=== PATIENT | male | born 1955 | race Caucasian/White ===

== ENCOUNTER 2023-01-25 20:42 | Inpatient (IN) ==
[2023-01-25 21:57] LABS: Hematocrit (blood only) 47.4 % (42.0-52.0); Hemoglobin 16.3 g/dl (14.0-18.0); Mean Corpuscular Hemoglobin 33.7 pg (25.0-34.0); Mean Corpuscular Hgb Conc 34.4 g/dL (32.0-36.0); Mean Corpuscular Volume 97.9 fL (80.0-100.0); Mean Platelet Volume 10.8 fL (9.4-12.4); Platelet Count 263 K/uL (130-400); RDW Coefficient of Variation 14.3 % (11.5-14.5); RDW Standard Deviation 51.6 fL (36.4-46.3); Red Blood Count 4.84 M/uL (4.70-6.10); White Blood Count 19.23 K/ul (4.8-10.8)
[2023-01-25 22:14] LABS: Albumin Globulin Ratio 1.2 (0.9-2); Albumin Level 4.1 gm/dl (3.4-5.0); BUN Creatinine Ratio 39.8 (10-20); Bilirubin,Total 1.4 mg/dl (0.2-1.0); Calcium 9.3 mg/dl (8.6-10.3); Creatinine Clr Calc Pharmacy 50.3 ml/min; Est GFR (Non-African American) 41.4 ml/min; Globulin 3.4 gm/dl (2.5-4.0); Potassium 4.3 mmol/L (3.5-5.1); Total Protein 7.5 gm/dl (6.0-8.3)
[2023-01-25] MEDS ORDERED: ONDANSETRON INJ 2 MG/ML 2 ML VIAL IV STA (22:16)
[2023-01-25] MEDS ORDERED: SODIUM CHLORIDE 0.9% 1000ML 1,000 ML IV ONE ×2 (22:16→22:17)
[2023-01-25] MEDS ORDERED: PANTOPRAZOLE BOLUS/DRIP 1 EACH IV STA (22:17)
[2023-01-25] MEDS ORDERED: PANTOprazole 80 MG in DEXTROSE 5% 100 ML IV ONE (22:17)
[2023-01-25 22:24] LABS: Troponin I High Sensitivity 142.4 pg/ml (0-20)
[2023-01-25 22:36] LABS: INR 1.2 (0.9-1.1); Partial Thromboplastin Ratio 0.9; Partial Thromboplastin Time 25.1 Seconds (21.0-31.0); Prothrombin Time 12.9 Seconds (9.0-12.0)
[2023-01-25 22:57] LABS: Base Excess VBG -1.3 mEq/L; HCO3 VBG 23 mmol/L; Oxygen Saturation VBG 66.2 %; PCO2 VBG 35 mmHg (38-50); PO2 VBG 44 mmHg; pH VBG 7.42 (7.36-7.41)
--- NOTE | 2023-01-25 23:04 | CT Scan Report ---
Exam(s): CT ABDOMEN + PELVIS Without Contrast EXAM: CT Abdomen and Pelvis Without Intravenous Contrast CLINICAL HISTORY: Reason for exam: abd pain gi bleed. TECHNIQUE: Axial computed tomography images of the abdomen and pelvis without intravenous contrast. CTDI is 25.75 mGy and DLP is 1436.72 mGy-cm. Automated exposure control was utilized for the study. A dose lowering technique was utilized adhering to the principles of ALARA. COMPARISON: No relevant prior studies available. FINDINGS: Lung bases: Unremarkable. No mass. No consolidation. ABDOMEN: Liver: Unremarkable. Gallbladder and bile ducts: Unremarkable. No calcified stones. No ductal dilation. Pancreas: Fatty replacement of the pancreas. No ductal dilation. Spleen: Unremarkable. No splenomegaly. Adrenals: Unremarkable. No mass. Kidneys and ureters: Mild bilateral perinephric stranding. No obstructing stones. No hydronephrosis. Stomach and bowel: There is mild wall thickening versus under distention of the sigmoid colon. There is scattered colonic diverticula without CT evidence for active diverticulitis. PELVIS: Appendix: No findings to suggest acute appendicitis. Bladder: Unremarkable. No stones. Reproductive: The prostate is enlarged. ABDOMEN and PELVIS: Intraperitoneal space: Unremarkable. No free air. No significant fluid collection. Bones/joints: Please see the dedicated thoracic CT for findings above the diaphragm. Degenerative changes of the thoracolumbar spine. No acute fracture. No dislocation. Soft tissues: Unremarkable. Vasculature: There is an infrarenal abdominal aortic aneurysm measuring up to 3.8 x 3.67 m (image 61 series 3). There is diffuse atherosclerotic calcification of the aorta and its major branch vessels. Lymph nodes: Unremarkable. No enlarged lymph nodes. IMPRESSION: 1. Mild wall thickening versus under distention of the sigmoid colon possibly reflecting colitis. 2. Infrarenal abdominal aortic aneurysm with aneurysm sac measuring up to 3.8 cm. Electronically signed by: Schuyler Zambrano MD 01/25/23 23:03 PM
--- NOTE | 2023-01-25 23:05 | CT Scan Report ---
Exam(s): CT CHEST Without Contrast EXAM: CT Chest Without Intravenous Contrast CLINICAL HISTORY: Reason for exam: charissa hypoxia. TECHNIQUE: Axial computed tomography images of the chest without intravenous contrast. CTDI is 25.75 mGy and DLP is 1436.72 mGy-cm. Automated exposure control was utilized for the study. A dose lowering technique was utilized adhering to the principles of ALARA. COMPARISON: No relevant prior studies available. FINDINGS: Lungs: Advanced biapical emphysema with large blebs as well as findings at the lung bases suggesting underlying interstitial lung disease. Pleural space: Unremarkable. No pneumothorax. No significant effusion. Heart: Dense coronary vascular calcification. No significant pericardial effusion. 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 No acute fracture. No dislocation. Soft tissues: Unremarkable. Vasculature: Calcific atherosclerotic disease of the thoracic aortic arch. Lymph nodes: Unremarkable. No enlarged lymph nodes. Upper abdomen: Please see the dedicated interpretation of the abdomen and pelvis for findings below the diaphragm. IMPRESSION: 1. Advanced emphysema superimposed on changes suggesting underlying interstitial lung disease. 2. Advanced coronary vascular atherosclerotic disease. Electronically signed by: Schuyler Zambrano MD 01/25/23 23:04 PM
[2023-01-25 23:15] LABS: Troponin I High Sensitivity 121.1 pg/ml (0-20)
[2023-01-25] MEDS: PANTOprazole 40 MG in DEXTROSE 5% 100 ML IV SCH (23:37)
--- NOTE | 2023-01-25 23:41 | XRay Report ---
SINGLE VIEW CHEST CLINICAL HISTORY: Sepsis. FINDINGS: An AP, portable, upright chest radiograph is obtained. No prior studies are available for c omparison at the time of dictation.. The heart is mildly enlarged noting atherosclerotic calcificatio n of the thoracic aorta. The pulmonary vasculature is noncongested. Advanced emphysema and chronic in terstitial thickening is similar to previous. Parenchymal scarring is seen throughout both lungs. No airspace consolidation or large pleural effusion is identified. No pneumothorax is seen. The skeletal structures are osteopenic. Bony thorax is grossly intact. IMPRESSION: Cardiomegaly and emphysema with no acute cardiopulmonary abnormality identified. ACT 112: Negative or not required by law. Electronically signed by: Bryce Rosas M.D. 01/25/2023 11:40 PM
[2023-01-26 00:12] LABS: Appearance Urine Clear (Clear); Bilirubin Urine Negative (Negative); Blood Urine Negative (Negative); Color Urine Yellow; Glucose Urine UA Negative (Negative); Ketones Urine Negative (Negative); Leukocyte Esterase Urine Negative (Negative); Nitrite Urine Negative (Negative); Protein Urine Negative (Negative); Specific Gravity Urine 1.018 (1.000-1.030); Urobilinogen Urine Negative (Negative); pH Urine 5.5 (4.5-7.5)
--- NOTE | 2023-01-26 00:30 | Emergency Department Note ---
History of Present Illness General Chief complaint: Abdominal Pain Stated complaint: ABD PAIN,DIARRHEA,BLOOD IN STOOL,QUEASY,DIZZY Time Seen by Provider: 01/25/23 22:10 History of Present Illness Provider complaint: Bloody stool 67-year-old male presents emergency department for bloody stools. Patient reports his symptoms began earlier today. He reports no abdominal pain. Reports no chest pain difficulty breathing. No recent travel. No recent antibiotic usage. No blood thinners. Allergies Allergy/AdvReac Type Severity Reaction Status Date / Time AMOXICILLIN Allergy Unknown Uncoded 08/21/02 15:36 N Allergy Unknown Uncoded 08/21/02 15:36 Past Med/Surg History Medical History AVM (arteriovenous malformation) [id number] syndrome COPD (chronic obstructive pulmonary disease) HTN (hypertension) No pertinent family history Pulmonary fibrosis Surgical History No pertinent past surgical history Social History Smoking Status: Current every day smoker Feels Safe at Home: Yes Physical Exam Vital Signs Vital Signs - 24 hr 01/25/23 20:51 01/25/23 21:28 01/25/23 21:42 Temperature 36.8 C Temperature Source Temporal Artery Scan Pulse Rate 119 H 110 H Pulse Rate [Apical] 103 H Pulse Rate from SpO2 Sensor Pulse Rhythm Pulse Rhythm [Apical] Regular Respiratory Rate 20 20 Respiratory Effort / Characteristics Non-Labored Spontaneous Respiratory Depth Normal Blood Pressure 106/68 Blood Pressure [Right Arm] 98/67 L Blood Pressure Mean 80 Blood Pressure Mean [Right Arm] 77 Blood Pressure Position Sitting Pulse Oximetry 95 84 L Oxygen Delivery Method Room Air Room Air Oxygen Flow Rate Sepsis Recent Fever Within 48 Hours No Sepsis New/Unexplained Change in Mental Status N/A Sepsis Action Taken by Nursing No Action Required 01/25/23 21:42 01/25/23 22:09 01/25/23 21:28 Temperature Temperature Source Pulse Rate 101 H 110 H Pulse Rate [Apical] Pulse Rate from SpO2 Sensor Pulse Rhythm Regular Pulse Rhythm [Apical] Respiratory Rate 18 19 Respiratory Effort / Characteristics Respiratory Depth Blood Pressure Blood Pressure [Right Arm] Blood Pressure Mean Blood Pressure Mean [Right Arm] Blood Pressure Position Pulse Oximetry 90 92 Oxygen Delivery Method Nasal Cannula Nasal Cannula Oxygen Flow Rate 3 3 Sepsis Recent Fever Within 48 Hours Sepsis New/Unexplained Change in Mental Status Sepsis Action Taken by Nursing 01/25/23 21:30 01/25/23 21:45 01/25/23 21:57 Temperature Temperature Source Pulse Rate 106 H 99 H Pulse Rate [Apical] Pulse Rate from SpO2 Sensor Pulse Rhythm Pulse Rhythm [Apical] Respiratory Rate 21 23 Respiratory Effort / Characteristics Respiratory Depth Blood Pressure 98/67 L Blood Pressure [Right Arm] Blood Pressure Mean 76 Blood Pressure Mean [Right Arm] Blood Pressure Position Pulse Oximetry Oxygen Delivery Method Oxygen Flow Rate Sepsis Recent Fever Within 48 Hours Sepsis New/Unexplained Change in Mental Status Sepsis Action Taken by Nursing 01/25/23 21:57 01/25/23 22:01 01/25/23 22:03 Temperature Temperature Source Pulse Rate 102 H 100 H Pulse Rate [Apical] Pulse Rate from SpO2 Sensor 102 H 100 H Pulse Rhythm Pulse Rhythm [Apical] Respiratory Rate 20 14 Respiratory Effort / Characteristics Respiratory Depth Blood Pressure 97/70 L Blood Pressure [Right Arm] Blood Pressure Mean 75 Blood Pressure Mean [Right Arm] Blood Pressure Position Pulse Oximetry 84 L 87 L Oxygen Delivery Method Oxygen Flow Rate Sepsis Recent Fever Within 48 Hours Sepsis New/Unexplained Change in Mental Status Sepsis Action Taken by Nursing 01/25/23 22:03 01/25/23 22:15 01/25/23 22:20 Temperature Temperature Source Pulse Rate 100 H 94 H 98 H Pulse Rate [Apical] Pulse Rate from SpO2 Sensor 100 H 97 H Pulse Rhythm Pulse Rhythm [Apical] Respiratory Rate 25 H 24 34 H Respiratory Effort / Characteristics Respiratory Depth Blood Pressure Blood Pressure [Right Arm] Blood Pressure Mean Blood Pressure Mean [Right Arm] Blood Pressure Position Pulse Oximetry 89 L 92 Oxygen Delivery Method Oxygen Flow Rate Sepsis Recent Fever Within 48 Hours Sepsis New/Unexplained Change in Mental Status Sepsis Action Taken by Nursing 01/25/23 22:20 01/25/23 22:30 01/25/23 22:33 Temperature Temperature Source Pulse Rate 100 H 97 H Pulse Rate [Apical] Pulse Rate from SpO2 Sensor 95 H 96 H Pulse Rhythm Pulse Rhythm [Apical] Respiratory Rate 20 25 H Respiratory Effort / Characteristics Respiratory Depth Blood Pressure 108/72 Blood Pressure [Right Arm] Blood Pressure Mean 81 Blood Pressure Mean [Right Arm] Blood Pressure Position Pulse Oximetry 92 92 Oxygen Delivery Method Oxygen Flow Rate Sepsis Recent Fever Within 48 Hours Sepsis New/Unexplained Change in Mental Status Sepsis Action Taken by Nursing 01/25/23 22:33 01/25/23 22:47 01/25/23 22:47 Temperature Temperature Source Pulse Rate 103 H Pulse Rate [Apical] Pulse Rate from SpO2 Sensor Pulse Rhythm Pulse Rhythm [Apical] Respiratory Rate 21 Respiratory Effort / Characteristics Respiratory Depth Blood Pressure 86/61 L 111/66 Blood Pressure [Right Arm] Blood Pressure Mean 70 73 Blood Pressure Mean [Right Arm] Blood Pressure Position Pulse Oximetry Oxygen Delivery Method Oxygen Flow Rate Sepsis Recent Fever Within 48 Hours Sepsis New/Unexplained Change in Mental Status Sepsis Action Taken by Nursing 01/25/23 23:00 01/25/23 23:00 01/25/23 23:43 Temperature Temperature Source Pulse Rate 92 H Pulse Rate [Apical] 89 Pulse Rate from SpO2 Sensor 92 H Pulse Rhythm Pulse Rhythm [Apical] Respiratory Rate 20 22 Respiratory Effort / Characteristics Non-Labored Spontaneous Respiratory Depth Normal Blood Pressure 98/70 L Blood Pressure [Right Arm] 113/60 Blood Pressure Mean 78 Blood Pressure Mean [Right Arm] 77 Blood Pressure Position Pulse Oximetry 92 96 Oxygen Delivery Method Nasal Cannula Oxygen Flow Rate 3 Sepsis Recent Fever Within 48 Hours Sepsis New/Unexplained Change in Mental Status Sepsis Action Taken by Nursing Physical Exam HENT: Exam performed. - Head: Normocephalic and atraumatic. CV: Normal rate, regular rhythm, normal heart sounds and intact distal pulses. There is no peripheral edema. Palpable radial pulses bue. PULM/CHEST: Rhonchi bilaterally. ABD: The abdomen is soft.There is no tenderness. There is no rebound, no guarding Rectal: Melanotic stool Hemoccult positive. NEURO: He is alert and oriented to person, place, and time. He has normal strength. No cranial nerve deficit or sensory deficit. Coordination and gait normal. GCS eye subscore is 4. GCS verbal subscore is 5. GCS motor subscore is 6. Cerebellar tests wnl. Course Course 0: The patient was evaluated in room C1. A complete history and physical exam was performed Cardiac monitoring: An order was placed for continuous cardiac monitoring. The monitor shows a rate of 110 with sinus rhythm interpreted by me Patient found to be hypoxic on room air. Supplemental oxygen was started via nasal cannula which improved the patient's oxygen saturation. Chest x-ray reviewed by me shows findings consistent with pulmonary fibrosis. IV fluids Protonix bolus and drip ordered for the patient 2330: Vital signs stable on supplemental oxygen. Labs show a leukocytosis of 19.23. Hemoglobin 16.3.. Coagulation studies within normal limits. VBG within normal limits. Creatinine 1.66. Lactic acid 2.1. High-sensitivity troponin [address] of the chest abdomen pelvis was conducted without contrast given the patient's creatinine. CT of the chest shows advanced COPD and interstitial lung disease. CT of the abdomen pelvis shows wall thickening versus underdistention of the sigmoid colon as well as an infra abdominal aortic aneurysm measuring 3.8 cm. Discussed case with [facility] hospitalist Dr. Flower. Dr. Tirado who will evaluate the patient for admission. He states he will evaluate the patient for antibiotics also, C. difficile and stool culture are pending. Administered Medications Pantoprazole Sodium 40 mg/ (Dextrose) 100 mls @ 20 mls/hr IV Q5H COLLIN Stop: 02/24/23 22:44 Last Admin: 01/25/23 23:37 Dose: 8 mg/hr, 20 mls/hr Documented By: ARNOLD Discontinued Medications Sodium Chloride (Nss 1000ml) 1,000 mls @ 999 mls/hr IV .Q1H1M ONE Stop: 01/25/23 23:16 Last Admin: 01/25/23 23:37 Dose: 999 mls/hr Documented By: ARNOLD Sodium Chloride (Nss 1000ml) 1,000 mls @ 999 mls/hr IV .Q1H1M ONE Stop: 01/25/23 23:17 Last Infusion: 01/25/23 23:28 Dose: 0 mls/hr Documented By: Admin: 01/25/23 22:58 Dose: 999 mls/hr Documented By: KAYLYN Pantoprazole Sodium (Protonix Bolus/Drip) 0 mls @ 1 mls/hr IV ONE STA Stop: 01/25/23 22:18 Last Admin: 01/25/23 23:28 Dose: Not Given Documented By: ARNOLD Pantoprazole Sodium 80 mg/ (Dextrose) 120 mls @ 400 mls/hr IV NOW ONE Stop: 01/25/23 22:34 Last Infusion: 01/25/23 23:28 Dose: 0 mls/hr Documented By: Admin: 01/25/23 22:59 Dose: 400 mls/hr Documented By: KAYLYN Ondansetron HCl (Ondansetron Inj 2 Mg/Ml 2 Ml Vial) 4 mg IV NOW STA Stop: 01/25/23 22:17 Last Admin: 01/25/23 23:28 Dose: Not Given Documented By: ARNOLD Critical Care Time Critical Care Time: Yes Total Critical Care Time: 59 I have personally spent greater than 59 minutes of critical care time in the direct management of this patient. This includes bedside care, interpretation of diagnostic studies, and testing, discussion with consultants, patient, and family members, and other required patient management activities. This 59 minutes is in excess of all separately billable procedures. Medical Decision Making Laboratory Data Attestation: I reviewed the patient's lab results. 01/25/23 21:13 01/25/23 21:13 Lab Results 01/25/23 01/25/23 01/25/23 Range/Units 21:12 21:13 21:13 WBC 19.23 H (4.8-10.8) K/ul RBC 4.84 (4.70-6.10) M/uL Hgb 16.3 (14.0-18.0) g/dl Hct 47.4 (42.0-52.0) % MCV 97.9 (80.0-100.0) fL MCH 33.7 (25.0-34.0) pg MCHC 34.4 (32.0-36.0) g/dL RDW Std Deviation 51.6 H (36.4-46.3) fL RDW Coeff of Nyasia 14.3 (11.5-14.5) % Plt Count 263 (130-400) K/uL MPV 10.8 (9.4-12.4) fL PT 12.9 H (9.0-12.0) Seconds INR 1.2 H (0.9-1.1) APTT 25.1 (21.0-31.0) Seconds PTT Ratio 0.9 VBG pH (7.36-7.41) VBG pCO2 (38-50) mmHg VBG pO2 mmHg VBG HCO3 mmol/L VBG O2 Saturation % VBG Base Excess mEq/L Sodium (136-145) mmol/L Potassium (3.5-5.1) mmol/L Chloride (98-107) mmol/L Carbon Dioxide (21-32) mmol/L Anion Gap (3-11) BUN (6-23) mg/dl Creatinine (0.6-1.4) mg/dl Est Cr Clr Drug Dosing ml/min Est GFR ( Amer) ml/min Est GFR (Non-Af Amer) ml/min BUN/Creatinine Ratio (10-20) Glucose (70-99(Fasting)) mg/dl Lactate (0.4-2.0) mmol/L Calcium (8.6-10.3) mg/dl Magnesium (1.7-2.4) mg/dl Total Bilirubin (0.2-1.0) mg/dl AST (13-39) U/L ALT (7-52) U/L Alkaline Phosphatase (34-104) U/L Troponin I High Sens (0-20) pg/ml Total Protein (6.0-8.3) gm/dl Albumin (3.4-5.0) gm/dl Globulin (2.5-4.0) gm/dl Albumin/Globulin Ratio (0.9-2) Procalcitonin (0-0.5) ng/ml Urine Color Urine Appearance (Clear) Urine pH (4.5-7.5) Ur Specific Clayton (1.000-1.030) Urine Protein (Negative) Urine Glucose (UA) (Negative) Urine Ketones (Negative) Urine Blood (Negative) Urine Nitrite (Negative) Urine Bilirubin (Negative) Urine Urobilinogen (Negative) Ur Leukocyte Esterase (Negative) POC Stool Occult Blood (Negative) SARS-CoV-2, RNA, NAAT (NEGATIVE) Blood Type A Negative Antibody Screen NEGATIVE 01/25/23 01/25/23 01/25/23 Range/Units 21:13 21:15 22:09 WBC (4.8-10.8) K/ul RBC (4.70-6.10) M/uL Hgb (14.0-18.0) g/dl Hct (42.0-52.0) % MCV (80.0-100.0) fL MCH (25.0-34.0) pg MCHC (32.0-36.0) g/dL RDW Std Deviation (36.4-46.3) fL RDW Coeff of Nyasia (11.5-14.5) % Plt Count (130-400) K/uL MPV (9.4-12.4) fL PT (9.0-12.0) Seconds INR (0.9-1.1) APTT (21.0-31.0) Seconds PTT Ratio VBG pH (7.36-7.41) VBG pCO2 (38-50) mmHg VBG pO2 mmHg VBG HCO3 mmol/L VBG O2 Saturation % VBG Base Excess mEq/L Sodium 134 L (136-145) mmol/L Potassium 4.3 (3.5-5.1) mmol/L Chloride 101 (98-107) mmol/L Carbon Dioxide 21 (21-32) mmol/L Anion Gap 12 H (3-11) BUN 66 H (6-23) mg/dl Creatinine 1.66 H (0.6-1.4) mg/dl Est Cr Clr Drug Dosing 50.3 ml/min Est GFR ( Amer) 48.0 ml/min Est GFR (Non-Af Amer) 41.4 ml/min BUN/Creatinine Ratio 39.8 H (10-20) Glucose 128 H (70-99(Fasting)) mg/dl Lactate (0.4-2.0) mmol/L Calcium 9.3 (8.6-10.3) mg/dl Magnesium (1.7-2.4) mg/dl Total Bilirubin 1.4 H (0.2-1.0) mg/dl AST 19 (13-39) U/L ALT 18 (7-52) U/L Alkaline Phosphatase 62 (34-104) U/L Troponin I High Sens 142.4 H* (0-20) pg/ml Total Protein 7.5 (6.0-8.3) gm/dl Albumin 4.1 (3.4-5.0) gm/dl Globulin 3.4 (2.5-4.0) gm/dl Albumin/Globulin Ratio 1.2 (0.9-2) Procalcitonin 0.24 (0-0.5) ng/ml Urine Color Urine Appearance (Clear) Urine pH (4.5-7.5) Ur Specific Clayton (1.000-1.030) Urine Protein (Negative) Urine Glucose (UA) (Negative) Urine Ketones (Negative) Urine Blood (Negative) Urine Nitrite (Negative) Urine Bilirubin (Negative) Urine Urobilinogen (Negative) Ur Leukocyte Esterase (Negative) POC Stool Occult Blood Positive A (Negative) SARS-CoV-2, RNA, NAAT (NEGATIVE) Blood Type Antibody Screen 01/25/23 01/25/23 01/25/23 Range/Units 22:27 22:27 22:32 WBC (4.8-10.8) K/ul RBC (4.70-6.10) M/uL Hgb (14.0-18.0) g/dl Hct (42.0-52.0) % MCV (80.0-100.0) fL MCH (25.0-34.0) pg MCHC (32.0-36.0) g/dL RDW Std Deviation (36.4-46.3) fL RDW Coeff of Nyasia (11.5-14.5) % Plt Count (130-400) K/uL MPV (9.4-12.4) fL PT (9.0-12.0) Seconds INR (0.9-1.1) APTT (21.0-31.0) Seconds PTT Ratio VBG pH 7.42 H (7.36-7.41) VBG pCO2 35 L (38-50) mmHg VBG pO2 44 mmHg VBG HCO3 23 mmol/L VBG O2 Saturation 66.2 % VBG Base Excess -1.3 mEq/L Sodium (136-145) mmol/L Potassium (3.5-5.1) mmol/L Chloride (98-107) mmol/L Carbon Dioxide (21-32) mmol/L Anion Gap (3-11) BUN (6-23) mg/dl Creatinine (0.6-1.4) mg/dl Est Cr Clr Drug Dosing ml/min Est GFR ( Amer) ml/min Est GFR (Non-Af Amer) ml/min BUN/Creatinine Ratio (10-20) Glucose (70-99(Fasting)) mg/dl Lactate 2.1 H* (0.4-2.0) mmol/L Calcium (8.6-10.3) mg/dl Magnesium 2.0 (1.7-2.4) mg/dl Total Bilirubin (0.2-1.0) mg/dl AST (13-39) U/L ALT (7-52) U/L Alkaline Phosphatase (34-104) U/L Troponin I High Sens 121.1 H* (0-20) pg/ml Total Protein (6.0-8.3) gm/dl Albumin (3.4-5.0) gm/dl Globulin (2.5-4.0) gm/dl Albumin/Globulin Ratio (0.9-2) Procalcitonin (0-0.5) ng/ml Urine Color Urine Appearance (Clear) Urine pH (4.5-7.5) Ur Specific Clayton (1.000-1.030) Urine Protein (Negative) Urine Glucose (UA) (Negative) Urine Ketones (Negative) Urine Blood (Negative) Urine Nitrite (Negative) Urine Bilirubin (Negative) Urine Urobilinogen (Negative) Ur Leukocyte Esterase (Negative) POC Stool Occult Blood (Negative) SARS-CoV-2, RNA, NAAT (NEGATIVE) Blood Type Antibody Screen 01/25/23 01/25/23 Range/Units Unknown Unknown WBC (4.8-10.8) K/ul RBC (4.70-6.10) M/uL Hgb (14.0-18.0) g/dl Hct (42.0-52.0) % MCV (80.0-100.0) fL MCH (25.0-34.0) pg MCHC (32.0-36.0) g/dL RDW Std Deviation (36.4-46.3) fL RDW Coeff of Nyasia (11.5-14.5) % Plt Count (130-400) K/uL MPV (9.4-12.4) fL PT (9.0-12.0) Seconds INR (0.9-1.1) APTT (21.0-31.0) Seconds PTT Ratio VBG pH (7.36-7.41) VBG pCO2 (38-50) mmHg VBG pO2 mmHg VBG HCO3 mmol/L VBG O2 Saturation % VBG Base Excess mEq/L Sodium (136-145) mmol/L Potassium (3.5-5.1) mmol/L Chloride (98-107) mmol/L Carbon Dioxide (21-32) mmol/L Anion Gap (3-11) BUN (6-23) mg/dl Creatinine (0.6-1.4) mg/dl Est Cr Clr Drug Dosing ml/min Est GFR ( Amer) ml/min Est GFR (Non-Af Amer) ml/min BUN/Creatinine Ratio (10-20) Glucose (70-99(Fasting)) mg/dl Lactate (0.4-2.0) mmol/L Calcium (8.6-10.3) mg/dl Magnesium (1.7-2.4) mg/dl Total Bilirubin (0.2-1.0) mg/dl AST (13-39) U/L ALT (7-52) U/L Alkaline Phosphatase (34-104) U/L Troponin I High Sens (0-20) pg/ml Total Protein (6.0-8.3) gm/dl Albumin (3.4-5.0) gm/dl Globulin (2.5-4.0) gm/dl Albumin/Globulin Ratio (0.9-2) Procalcitonin (0-0.5) ng/ml Urine Color Yellow Urine Appearance Clear (Clear) Urine pH 5.5 (4.5-7.5) Ur Specific Clayton 1.018 (1.000-1.030) Urine Protein Negative (Negative) Urine Glucose (UA) Negative (Negative) Urine Ketones Negative (Negative) Urine Blood Negative (Negative) Urine Nitrite Negative (Negative) Urine Bilirubin Negative (Negative) Urine Urobilinogen Negative (Negative) Ur Leukocyte Esterase Negative (Negative) POC Stool Occult Blood (Negative) SARS-CoV-2, RNA, NAAT NEGATIVE (NEGATIVE) Blood Type Antibody Screen Imaging Data Attestation: I personally reviewed and interpreted this imaging study as follows: My Impression: Chest x-ray: Findings are consistent with pulmonary fibrosis Radiologist's Impression: Chest X-Ray 01/25/23 22:09 SINGLE VIEW CHEST CLINICAL HISTORY: Sepsis. FINDINGS: An AP, portable, upright chest radiograph is obtained. No prior studies are available for comparison at the time of dictation.. The heart is mildly enlarged noting atherosclerotic calcification of the thoracic aorta. The pulmonary vasculature is noncongested. Advanced emphysema and chronic interstitial thickening is similar to previous. Parenchymal scarring is seen throughout both lungs. No airspace consolidation or large pleural effusion is identified. No pneumothorax is seen. The skeletal structures are osteopenic. Bony thorax is grossly intact. IMPRESSION: Cardiomegaly and emphysema with no acute cardiopulmonary abnormality identified. ACT 112: Negative or not required by law. Electronically signed by: Bryce Rosas M.D. 01/25/2023 11:40 PM Abdomen/Pelvis CT 01/25/23 22:17 Exam(s): CT ABDOMEN + PELVIS Without Contrast EXAM: CT Abdomen and Pelvis Without Intravenous Contrast CLINICAL HISTORY: Reason for exam: abd pain gi bleed. TECHNIQUE: Axial computed tomography images of the abdomen and pelvis without intravenous contrast. CTDI is 25.75 mGy and DLP is 1436.72 mGy-cm. Automated exposure control was utilized for the study. A dose lowering technique was utilized adhering to the principles of ALARA. COMPARISON: No relevant prior studies available. FINDINGS: Lung bases: Unremarkable. No mass. No consolidation. ABDOMEN: Liver: Unremarkable. Gallbladder and bile ducts: Unremarkable. No calcified stones. No ductal dilation. Pancreas: Fatty replacement of the pancreas. No ductal dilation. Spleen: Unremarkable. No splenomegaly. Adrenals: Unremarkable. No mass. Kidneys and ureters: Mild bilateral perinephric stranding. No obstructing stones. No hydronephrosis. Stomach and bowel: There is mild wall thickening versus under distention of the sigmoid colon. There is scattered colonic diverticula without CT evidence for active diverticulitis. PELVIS: Appendix: No findings to suggest acute appendicitis. Bladder: Unremarkable. No stones. Reproductive: The prostate is enlarged. ABDOMEN and PELVIS: Intraperitoneal space: Unremarkable. No free air. No significant fluid collection. Bones/joints: Please see the dedicated thoracic CT for findings above the diaphragm. Degenerative changes of the thoracolumbar spine. No acute fracture. No dislocation. Soft tissues: Unremarkable. Vasculature: There is an infrarenal abdominal aortic aneurysm measuring up to 3.8 x 3.67 m (image 61 series 3). There is diffuse atherosclerotic calcification of the aorta and its major branch vessels. Lymph nodes: Unremarkable. No enlarged lymph nodes. IMPRESSION: 1. Mild wall thickening versus under distention of the sigmoid colon possibly reflecting colitis. 2. Infrarenal abdominal aortic aneurysm with aneurysm sac measuring up to 3.8 cm. Electronically signed by: Schuyler Zambrano MD 01/25/23 23:[address] 01/25/23 22:20 Exam(s): CT CHEST Without Contrast EXAM: CT Chest Without Intravenous Contrast CLINICAL HISTORY: Reason for exam: charissa hypoxia. TECHNIQUE: Axial computed tomography images of the chest without intravenous contrast. CTDI is 25.75 mGy and DLP is 1436.72 mGy-cm. Automated exposure control was utilized for the study. A dose lowering technique was utilized adhering to the principles of ALARA. COMPARISON: No relevant prior studies available. FINDINGS: Lungs: Advanced biapical emphysema with large blebs as well as findings at the lung bases suggesting underlying interstitial lung disease. Pleural space: Unremarkable. No pneumothorax. No significant effusion. Heart: Dense coronary vascular calcification. No significant pericardial effusion. 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 No acute fracture. No dislocation. Soft tissues: Unremarkable. Vasculature: Calcific atherosclerotic disease of the thoracic aortic arch. Lymph nodes: Unremarkable. No enlarged lymph nodes. Upper abdomen: Please see the dedicated interpretation of the abdomen and pelvis for findings below the diaphragm. IMPRESSION: 1. Advanced emphysema superimposed on changes suggesting underlying interstitial lung disease. 2. Advanced coronary vascular atherosclerotic disease. Electronically signed by: Schuyler Zambrano MD 01/25/23 23:04 PM ECG Data Attestation: I personally reviewed and interpreted this ECG as follows: Rate (beats per minute): 113 Rhythm: + sinus tachycardia ECG Intervals/blocks: + Normal QRS, + Normal LA and + Normal QT-c ECG ST segments: + Normal ST segments MDM Narrative 2210: The patient was evaluated in room C1. A complete history and physical exam was performed Cardiac monitoring: An order was placed for continuous cardiac monitoring. The monitor shows a rate of 110 with sinus rhythm interpreted by me Patient found to be hypoxic on room air. Supplemental oxygen was started via nasal cannula which improved the patient's oxygen saturation. Chest x-ray reviewed by me shows findings consistent with pulmonary fibrosis. IV fluids Protonix bolus and drip ordered for the patient 2330: Vital signs stable on supplemental oxygen. Labs show a leukocytosis of 19.23. Hemoglobin 16.3.. Coagulation studies within normal limits. VBG within normal limits. Creatinine 1.66. Lactic acid 2.1. High-sensitivity troponin 144. CT of the chest abdomen pelvis was conducted without contrast given the patient's creatinine. CT of the chest shows advanced COPD and interstitial lung disease. CT of the abdomen pelvis shows wall thickening versus underdistention of the sigmoid colon as well as an infra abdominal aortic aneurysm measuring 3.8 cm. Discussed case with [facility] hospitalist Dr. Flower. Dr. Tirado who will evaluate the patient for admission. He states he will evaluate the patient for antibiotics also, C. difficile and stool culture are pending. Impression & Plan Hypoxia, Elevated troponin, Acute GI bleeding Discharge Plan Visit Data Chief Complaint: Abdominal Pain Stated Complaint: ABD PAIN,DIARRHEA,BLOOD IN STOOL,QUEASY,DIZZY ED Provider: Owen Estrella Discharge Problem: Hypoxia, Elevated troponin, Acute GI bleeding Patient Disposition: Admitted As Inpatient Forms Stand Alone Forms: [facility] Referrals Referrals: Ck Palma MD [Primary Care Provider] -
[2023-01-26] MEDS: PANTOprazole 40 MG in DEXTROSE 5% 100 ML IV SCH ×4 (04:34→20:34)
[2023-01-26] MEDS ORDERED: ACETAMINOPHEN 325 MG TAB PO PRN (05:09)
[2023-01-26] MEDS ORDERED: NITROGLYCERIN SL 0.4 MG/TAB TAB SL PRN (05:09)
[2023-01-26] MEDS ORDERED: ONDANSETRON INJ 2 MG/ML 2 ML VIAL IV PRN (05:09)
[2023-01-26] MEDS ORDERED: ALBUT/IPRATROP 3MG/0.5MG NEB 3 ML VIAL NEB PRN (05:09)
[2023-01-26] MEDS ORDERED: PIPERACILLIN/TAZOBACTAM 4.5 GM in DEXTROSE 5% 100 ML IV SCH (05:09)
--- NOTE | 2023-01-26 05:18 | History & Physical Report ---
Date of Service January 26, 2023 Assessment & Plan (1) Acute GI bleeding: Plan: 67-year-old male past medical history significant for hyperlipidemia, prediabetes, respiratory bronchiolitis associated interstitial lung disease, pulmonary emphysema, hypertension, AAA, lumbago, history of tobacco abuse says quit in 2008 presents with 1 episodes of blood per rectum. GI bleed Blood per rectum Hemoglobin stable Blood consent obtained CT scan showing colitis Stool cultures and stool for C. difficile pending N.p.o. IV fluids H&H every 6 hours Close monitoring telemetry floor GI consulted. Elevated troponin No chest pain We will follow serial enzymes and echocardiogram Hypoxia Requiring oxygen No obvious wheezing History of smoking History of respiratory bronchiolitis associated interstitial lung disease and pulmonary emphysema Has cough with phlegm CT chest without contrast no acute findings Empiric Zosyn and doxycycline Nebs [id number] and as needed Home inhalers Close monitor Leukocytosis Antibiotics as above P.o. vancomycin until stool for C. difficile studies comes back Hypertension Hold his home lisinopril hydrochlorothiazide IV hydralazine as needed Will monitor Prediabetes Follow HbA1c levels AAA CT abdomen showing infrarenal abdominal aortic aneurysm 3.8 cm Needs follow-up DVT prophylaxis SCDs Disposition Close monitoring in telemetry Full code (2) Elevated troponin: (3) Hypoxia: History of Present Illness Chief Complaint: Blood per rectum Primary Care Provider: Ck Palma MD 67-year-old male past medical history significant for hyperlipidemia, prediabetes, respiratory bronchiolitis associated interstitial lung disease, pulmonary emphysema, hypertension, AAA, lumbago, history of tobacco abuse says quit in 2008 presents with 1 episodes of blood per rectum. Denies any abdominal pain. No nausea or vomiting. Has cough since about 1 to 2 days bringing yellowish phlegm. Denies any chest pain. Says he gets mild short of breath. Denies any headache. He was feeling lightheaded. No blurred visions. No earache. Has some runny nose. Appetite is okay. Normal bladder movements. In the ER he was slightly hypoxic and requiring oxygen. When he came in blood pressure was soft but improved with fluids. Past medical history as mentioned above Past surgical history colonoscopy, dental procedure, Allergies Allergy/AdvReac Type Severity Reaction Status Date / Time amoxicillin Allergy Unknown Unknown Verified 01/26/23 05:16 Home Medications Medication Instructions Recorded Confirmed Type aspirin 81 mg capsule,delayed 81 mg PO DAILY 01/26/23 01/26/23 History release lisinopril 10 1 tab PO DAILY 01/26/23 01/26/23 History mg-hydrochlorothiazide 12.5 mg tablet umeclidinium 62.5 mcg-vilanterol 1 inh inhalation DAILY 01/26/23 01/26/23 History 25 mcg/actuation powdr for inhalation (Anoro Ellipta) Past Med/Surg History Medical History AVM (arteriovenous malformation) Anzv-Wpvd-Spju syndrome COPD (chronic obstructive pulmonary disease) HTN (hypertension) No pertinent family history Pulmonary fibrosis Surgical History No pertinent past surgical history Family History (Updated 01/26/23 @ 05:20 by Ronald Flower MD) Sister Breast cancer Mother Diabetes Social History (Updated 01/26/23 @ 05:21 by Ronald Flower MD) Smoking Status: Former smoker Hx Alcohol Use: No Hx Substance Use: No Feels Safe at Home: Yes Review of Systems Review of Systems: All systems reviewed & are unremarkable except as noted in Subjective Physical Exam Physical Exam: General- not in acute distress Head- atraumatic Eyes- PERRL ENT- oropharynx clear Neck- supple, no JVD, Lungs- clear to auscultation and percussion Heart- regular rhythm; no murmur, no gallop, no rub appreciated Abdomen- normal bowel sounds, soft, nontender, no masses or hepatosplenomegaly Extremities- no pretibial edema, no erythema Neuro- alert, oriented x 3; PERRL no facial palsy; no dysarthria;Non focal. Skin- warm & dry Results & Data Results & Data Vital Signs (Past 12 Hours) Vital Signs Temp Pulse Pulse Resp BP BP Pulse Ox 01/26/23 04:30 81 19 102/71 92 01/26/23 04:00 90 24 123/94 87 L 01/26/23 03:33 89 21 100/78 93 01/26/23 03:00 86 24 114/88 93 01/26/23 01:27 89 01/26/23 01:07 96 H 22 118/87 92 01/25/23 23:43 89 22 113/60 96 01/25/23 23:00 92 H 20 92 01/25/23 23:00 98/70 L 01/25/23 22:47 103 H 21 01/25/23 22:47 111/66 01/25/23 22:33 86/61 L 01/25/23 22:33 97 H 25 H 92 01/25/23 22:30 100 H 20 92 01/25/23 22:20 108/72 01/25/23 22:20 98 H 34 H 92 01/25/23 22:15 94 H 24 01/25/23 22:03 100 H 25 H 89 L 01/25/23 22:03 97/70 L 01/25/23 22:01 100 H 14 87 L 01/25/23 21:57 102 H 20 84 L 01/25/23 21:57 98/67 L 01/25/23 21:45 99 H 23 01/25/23 21:30 106 H 21 01/25/23 21:28 110 H 19 01/25/23 22:09 92 01/25/23 21:42 101 H 18 90 01/25/23 21:42 103 H 20 98/67 L 84 L 01/25/23 21:28 110 H 01/25/23 20:51 36.8 C 119 H 20 106/68 95 O2 Del Method O2 Flow Rate 01/26/23 04:30 01/26/23 04:00 01/26/23 03:33 01/26/23 03:00 01/26/23 01:27 01/26/23 01:07 Nasal Cannula 3 01/25/23 23:43 Nasal Cannula 3 01/25/23 23:00 01/25/23 23:00 01/25/23 22:47 01/25/23 22:47 01/25/23 22:33 01/25/23 22:33 01/25/23 22:30 01/25/23 22:20 01/25/23 22:20 01/25/23 22:15 01/25/23 22:03 01/25/23 22:03 01/25/23 22:01 01/25/23 21:57 01/25/23 21:57 01/25/23 21:45 01/25/23 21:30 01/25/23 21:28 01/25/23 22:09 Nasal Cannula 3 01/25/23 21:42 Nasal Cannula 3 01/25/23 21:42 Room Air 01/25/23 21:28 01/25/23 20:51 Room Air Diagnostic Findings Laboratory Results WBC 19.23 K/ul (4.8-10.8) H 01/25/23 21:13 RBC 4.84 M/uL (4.70-6.10) 01/25/23 21:13 Hgb 16.3 g/dl (14.0-18.0) 01/25/23 21:13 Hct 47.4 % (42.0-52.0) 01/25/23 21:13 MCV 97.9 fL (80.0-100.0) 01/25/23 21:13 MCH 33.7 pg (25.0-34.0) 01/25/23 21:13 MCHC 34.4 g/dL (32.0-36.0) 01/25/23 21:13 RDW Std Deviation 51.6 fL (36.4-46.3) H 01/25/23 21:13 RDW Coeff of Nyasia 14.3 % (11.5-14.5) 01/25/23 21:13 Plt Count 263 K/uL (130-400) 01/25/23 21:13 MPV 10.8 fL (9.4-12.4) 01/25/23 21:13 PT 12.9 Seconds (9.0-12.0) H 01/25/23 21:13 INR 1.2 (0.9-1.1) H 01/25/23 21:13 APTT 25.1 Seconds (21.0-31.0) 01/25/23 21:13 PTT Ratio 0.9 01/25/23 21:13 VBG pH 7.42 (7.36-7.41) H 01/25/23 22:27 VBG pCO2 35 mmHg (38-50) L 01/25/23 22: VBG pO2 44 mmHg 01/25/23 22:27 VBG HCO3 23 mmol/L 01/25/23 22: VBG O2 Saturation 66.2 % 01/25/23 22: VBG Base Excess -1.3 mEq/L 01/25/23 22:27 Sodium 134 mmol/L (136-145) L 01/25/23 21:13 Potassium 4.3 mmol/L (3.5-5.1) 01/25/23 21:13 Chloride 101 mmol/L (98-107) 01/25/23 21:13 Carbon Dioxide 21 mmol/L (21-32) 01/25/23 21:13 Anion Gap 12 (3-11) H 01/25/23 21:13 BUN 66 mg/dl (6-23) H 01/25/23 21:13 Creatinine 1.66 mg/dl (0.6-1.4) H 01/25/23 21:13 Est Cr Clr Drug Dosing 50.3 ml/min 01/25/23 21:13 Est GFR ( Amer) 48.0 ml/min 01/25/23 21:13 Est GFR (Non-Af Amer) 41.4 ml/min 01/25/23 21:13 BUN/Creatinine Ratio 39.8 (10-20) H 01/25/23 21:13 Glucose 128 mg/dl (70-99(Fasting)) H 01/25/23 21:13 Lactate 1.5 mmol/L (0.4-2.0) 01/26/23 01:12 Calcium 9.3 mg/dl (8.6-10.3) 01/25/23 21:13 Magnesium 2.0 mg/dl (1.7-2.4) 01/25/23 22:32 Total Bilirubin 1.4 mg/dl (0.2-1.0) H 01/25/23 21:13 AST 19 U/L (13-39) 01/25/23 21:13 ALT 18 U/L (7-52) 01/25/23 21:13 Alkaline Phosphatase 62 U/L (34-104) 01/25/23 21:13 Troponin I High Sens 121.1 pg/ml (0-20) H* 01/25/23 22:32 Total Protein 7.5 gm/dl (6.0-8.3) 01/25/23 21:13 Albumin 4.1 gm/dl (3.4-5.0) 01/25/23 21:13 Globulin 3.4 gm/dl (2.5-4.0) 01/25/23 21:13 Albumin/Globulin Ratio 1.2 (0.9-2) 01/25/23 21:13 Procalcitonin 0.24 ng/ml (0-0.5) 01/25/23 21:15 Urine Color Yellow 01/25/23 Unknown Urine Appearance Clear (Clear) 01/25/23 Unknown Urine pH 5.5 (4.5-7.5) 01/25/23 Unknown Ur Specific Marshall 1.018 (1.000-1.030) 01/25/23 Unknown Urine Protein Negative (Negative) 01/25/23 Unknown Urine Glucose (UA) Negative (Negative) 01/25/23 Unknown Urine Ketones Negative (Negative) 01/25/23 Unknown Urine Blood Negative (Negative) 01/25/23 Unknown Urine Nitrite Negative (Negative) 01/25/23 Unknown Urine Bilirubin Negative (Negative) 01/25/23 Unknown Urine Urobilinogen Negative (Negative) 01/25/23 Unknown Ur Leukocyte Esterase Negative (Negative) 01/25/23 Unknown POC Stool Occult Blood Positive (Negative) A 01/25/23 22:09 SARS-CoV-2, RNA, NAAT NEGATIVE (NEGATIVE) 01/25/23 Unknown Blood Type A Negative 01/25/23 21:12 Antibody Screen NEGATIVE 01/25/23 21:12 Impressions Chest X-Ray 01/25/23 22:09 SINGLE VIEW CHEST CLINICAL HISTORY: Sepsis. FINDINGS: An AP, portable, upright chest radiograph is obtained. No prior studies are available for comparison at the time of dictation.. The heart is mildly enlarged noting atherosclerotic calcification of the thoracic aorta. The pulmonary vasculature is noncongested. Advanced emphysema and chronic interstitial thickening is similar to previous. Parenchymal scarring is seen throughout both lungs. No airspace consolidation or large pleural effusion is identified. No pneumothorax is seen. The skeletal structures are osteopenic. Bony thorax is grossly intact. IMPRESSION: Cardiomegaly and emphysema with no acute cardiopulmonary abnormality identified. ACT 112: Negative or not required by law. Electronically signed by: Bryce Rosas M.D. 01/25/2023 11:40 PM Abdomen/Pelvis CT 01/25/23 22:17 Exam(s): CT ABDOMEN + PELVIS Without Contrast EXAM: CT Abdomen and Pelvis Without Intravenous Contrast CLINICAL HISTORY: Reason for exam: abd pain gi bleed. TECHNIQUE: Axial computed tomography images of the abdomen and pelvis without intravenous contrast. CTDI is 25.75 mGy and DLP is 1436.72 mGy-cm. Automated exposure control was utilized for the study. A dose lowering technique was utilized adhering to the principles of ALARA. COMPARISON: No relevant prior studies available. FINDINGS: Lung bases: Unremarkable. No mass. No consolidation. ABDOMEN: Liver: Unremarkable. Gallbladder and bile ducts: Unremarkable. No calcified stones. No ductal dilation. Pancreas: Fatty replacement of the pancreas. No ductal dilation. Spleen: Unremarkable. No splenomegaly. Adrenals: Unremarkable. No mass. Kidneys and ureters: Mild bilateral perinephric stranding. No obstructing stones. No hydronephrosis. Stomach and bowel: There is mild wall thickening versus under distention of the sigmoid colon. There is scattered colonic diverticula without CT evidence for active diverticulitis. PELVIS: Appendix: No findings to suggest acute appendicitis. Bladder: Unremarkable. No stones. Reproductive: The prostate is enlarged. ABDOMEN and PELVIS: Intraperitoneal space: Unremarkable. No free air. No significant fluid collection. Bones/joints: Please see the dedicated thoracic CT for findings above the diaphragm. Degenerative changes of the thoracolumbar spine. No acute fracture. No dislocation. Soft tissues: Unremarkable. Vasculature: There is an infrarenal abdominal aortic aneurysm measuring up to 3.8 x 3.67 m (image 61 series 3). There is diffuse atherosclerotic calcification of the aorta and its major branch vessels. Lymph nodes: Unremarkable. No enlarged lymph nodes. IMPRESSION: 1. Mild wall thickening versus under distention of the sigmoid colon possibly reflecting colitis. 2. Infrarenal abdominal aortic aneurysm with aneurysm sac measuring up to 3.8 cm. Electronically signed by: Schuyler Zambrano MD 01/25/23 23:[address] 01/25/23 22:20 Exam(s): CT CHEST Without Contrast EXAM: CT Chest Without Intravenous Contrast CLINICAL HISTORY: Reason for exam: charissa hypoxia. TECHNIQUE: Axial computed tomography images of the chest without intravenous contrast. CTDI is 25.75 mGy and DLP is 1436.72 mGy-cm. Automated exposure control was utilized for the study. A dose lowering technique was utilized adhering to the principles of ALARA. COMPARISON: No relevant prior studies available. FINDINGS: Lungs: Advanced biapical emphysema with large blebs as well as findings at the lung bases suggesting underlying interstitial lung disease. Pleural space: Unremarkable. No pneumothorax. No significant effusion. Heart: Dense coronary vascular calcification. No significant pericardial effusion. 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 No acute fracture. No dislocation. Soft tissues: Unremarkable. Vasculature: Calcific atherosclerotic disease of the thoracic aortic arch. Lymph nodes: Unremarkable. No enlarged lymph nodes. Upper abdomen: Please see the dedicated interpretation of the abdomen and pelvis for findings below the diaphragm. IMPRESSION: 1. Advanced emphysema superimposed on changes suggesting underlying interstitial lung disease. 2. Advanced coronary vascular atherosclerotic disease. Electronically signed by: Schuyler Zambrano MD 01/25/23 23:04 PM ECG Additional Comments: ECG sinus tachycardia rate of [address] changes seen Code Status & VTE Plan VTE Prophylaxis Plan VTE Prophylaxis will be ordered: Yes
[2023-01-26] MEDS: SODIUM CHLORIDE 0.9% 1000ML 1,000 ML IV SCH ×2 (05:35→15:36)
[2023-01-26] MEDS ORDERED: ERTAPENEM SODIUM 10 ML IV ONE (06:00)
[2023-01-26] MEDS ORDERED: ERTAPENEM SODIUM 1,000 MG in SYRINGE 0 ML IV SCH (06:00)
[2023-01-26] MEDS: RASPBERRY SYRUP 5 ML UDP PO SCH ×2 (06:22→12:04)
[2023-01-26] MEDS: DOXYCYCLINE HYCLATE 100 MG in DEXTROSE 5% 100 ML IV SCH ×2 (06:22→18:25)
[2023-01-26] MEDS: VANCOMYCIN HCL 125 MG/2.5ML SOLN PO SCH ×2 (06:23→12:04)
[2023-01-26 06:31] LABS: Basophils # (auto) 0.13 K/uL (0-0.2); Basophils % (auto) 0.8 %; Eosinophils # (auto) 0.14 K/uL (0-0.50); Eosinophils % (auto) 0.9 %; Hematocrit (blood only) 44.2 % (42.0-52.0); Hemoglobin 15.2 g/dl (14.0-18.0); Immature Granulocytes # (auto) 0.26 K/uL (0.01-0.20); Immature Granulocytes % (auto) 1.7 %; Lymphocytes # (auto) 4.12 K/uL (1.2-3.4); Lymphocytes % (auto) 26.5 %; Mean Corpuscular Hemoglobin 33.3 pg (25.0-34.0); Mean Corpuscular Hgb Conc 34.4 g/dL (32.0-36.0); Mean Corpuscular Volume 96.9 fL (80.0-100.0); Mean Platelet Volume 10.5 fL (9.4-12.4); Monocytes # (auto) 1.34 K/uL (0.11-0.59); Monocytes % (auto) 8.6 %; Neutrophils # (auto) 9.56 K/uL (1.40-6.50); Neutrophils % (auto) 61.5 %; Platelet Count 221 K/uL (130-400); RDW Coefficient of Variation 14.5 % (11.5-14.5); RDW Standard Deviation 51.6 fL (36.4-46.3); Red Blood Count 4.56 M/uL (4.70-6.10); White Blood Count 15.55 K/ul (4.8-10.8)
[2023-01-26 06:47] LABS: BUN Creatinine Ratio 45.3 (10-20); Calcium 8.9 mg/dl (8.6-10.3); Creatinine Clr Calc Pharmacy 66.5 ml/min; Est GFR (African American) 65.7 ml/min; Est GFR (Non-African American) 56.7 ml/min; Magnesium 2.1 mg/dl (1.7-2.4); Potassium 4.1 mmol/L (3.5-5.1)
[2023-01-26] MEDS: ALBUT/IPRATROP 3MG/0.5MG NEB 3 ML VIAL NEB SCH ×4 (06:55→19:07)
[2023-01-26 07:08] LABS: Troponin I High Sensitivity 107.7 pg/ml (0-20)
[2023-01-26 07:51] LABS: Estimated Average Glucose 126 mg/dl
[2023-01-26] MEDS: UMECLIDINIUM/VILANTEROL 62.5/25MCG 7 PUFFS/INHALER INH SCH (09:07)
--- NOTE | 2023-01-26 10:24 | Gastrointestinal Consultation ---
Date of Consultation January 26, 2023 Assessment & Plan (1) Rectal bleedin67 year old male with history of HTN, COPD, pulmonary fibrosis, Qhke-Gbrt-Dial syndrome, grade IV hemorrhoids following with colorectal given previous concern for dysplastic changes and others below presenting for eval of rectal bleeding x 1 episodes, hemodynamically stable w/ stable HGB. May continue liquids today Trend H&H Monitor and document GI output output Transfuse as needed Check stool studies, c.diff If c.diff negative, empiric ABX given colitis on CT Thank you for allowing us to participate in the care of this patient. Please call with any acute changes, questions or concerns. Please see addendum below with additional recommendation from my supervising physician. Supervising Physician Co-Signing Physician Notes I performed a history and physical examination of the patient today, including specifically on physical exam - soft abdomen. I have discussed the patient's management with the advanced practitioner. Please refer to the nurse practitioner's note for the documented findings and plan of care. Colitis on imaging. Obtain SWU. ABx. COlonoscopy as OP. recall GI if needed. History of Present Illness Reason for Consultation: rectalbleeding Requesting Physician: Sarkis Attending Physician: Anibal Dockery MD History of Present Illness 67 year old male with history of HTN, COPD, pulmonary fibrosis, Xhhx-Qblu-Vzmn syndrome, grade IV hemorrhoids following with colorectal given previous concern for dysplastic changes and others below presenting for eval of rectal bleeding. Pt was seen and evaluated, chart reviewed. He notes he sought ED care given an episode of rectal bleeding. Occurred x 1 day and 1 episode. Had no episodes of abd pain, cramping prior to this BM. Denies previous episodes of melena. No upper abd pain. No nausea, vomiting. No GERD. No dysphagia. No fever, chills, CP. He is wearing O2 but denies SOB. HGB 16.3 --> 15.2 BUN [address] Chest 2022: Advanced emphysema superimposed on changes suggesting underlying interstitial lung disease. Advanced coronary vascular atherosclerotic disease. CTAP 2022: Mild wall thickening versus under distention of the sigmoid colonpossibly reflecting colitis. Infrarenal abdominal aortic aneurysm with aneurysm sac measuring up to 3.8 cm. Colonoscopy 2021: - The examined portion of the ileum was normal. - Diverticulosis in the sigmoid colon. - One 1 mm polyp in the ascending colon, removed with a jumbo cold forceps. Resected and retrieved. - Two 3 to 4 mm polyps in the transverse colon, removed with a cold snare. Resected and retrieved. - Internal hemorrhoids. - The examination was otherwise normal on direct and retroflexion views. Colonoscopy 2019: Two 3 to 5 mm polyps in the ascending colon, removed with a cold snare. Resected and retrieved. - Two 1 to 4 mm polyps in the descending colon, removed with a jumbo cold forceps. Resected and retrieved. - The examined portion of the ileum was normal. - External and internal hemorrhoids. Colonoscopy 2014: - Anal mass. - One 8 mm polyp in the descending colon. Resected and retrieved. - One 6 mm polyp in the sigmoid colon. Complete resection. Polyp tissue not retrieved. - The examination was otherwise normal on direct and retroflexion views Allergies Allergy/AdvReac Type Severity Reaction Status Date / Time amoxicillin Allergy Unknown Hives Verified 01/26/23 05:32 Home Medications Medication Instructions Recorded Confirmed Type aspirin 81 mg capsule,delayed 81 mg PO DAILY 01/26/23 01/26/23 History release lisinopril 10 1 tab PO DAILY 01/26/23 01/26/23 History mg-hydrochlorothiazide 12.5 mg tablet umeclidinium 62.5 mcg-vilanterol 1 inh inhalation DAILY 01/26/23 01/26/23 History 25 mcg/actuation powdr for inhalation (Anoro Ellipta) Patient History Medical History AVM (arteriovenous malformation) Binb-Fqon-Zyfk syndrome COPD (chronic obstructive pulmonary disease) HTN (hypertension) No pertinent family history Pulmonary fibrosis Surgical History No pertinent past surgical history Family History (Updated 01/26/23 @ 05:20 by Ronald Flower MD) Sister Breast cancer Mother Diabetes Social History (Updated 01/26/23 @ 05:21 by Ronald Flower MD) Smoking Status: Former smoker Hx Alcohol Use: Yes Alcohol type: beer Hx Substance Use: No Preferred Language: Tajik Communication Ability: Effective Lathe Hand Required: No Beliefs That Will Affect Care: None Current Living Situation: Spouse Feels Safe at Home: Yes Safety Concerns: Feels Safe At This Time Review of Systems Review of Systems: All systems reviewed & are unremarkable except as noted in HPI & below Physical Exam Constitutional: WD/WN, vitals as above Respiratory: normal respiratory effort Cardiovascular: Rate/Rhythm: regular rate and regular rhythm Gastrointestinal (Abdomen): normal bowel sounds, soft, nontender, no hepatosplenomegaly Skin: no rashes, warm and dry Results & Data Vital Signs (Past 12 Hours) Vital Signs Temp Pulse Pulse Resp BP BP Pulse Ox 01/26/23 09:00 80 19 93 01/26/23 09:00 102/73 01/26/23 08:30 101/70 01/26/23 08:30 92 H 20 91 01/26/23 08:00 92 H 22 93 01/26/23 08:00 104/71 01/26/23 07:30 121/83 01/26/23 07:30 94 H 23 01/26/23 07:00 90 11 L 99 01/26/23 07:00 114/80 01/26/23 06:30 93/61 L 01/26/23 06:30 89 18 94 01/26/23 06:00 76 20 93 01/26/23 06:00 95/71 L 01/26/23 07:02 94 H 20 114/80 99 01/26/23 06:56 87 17 95 01/26/23 05:59 01/26/23 05:59 36.6 C 90 01/26/23 05:24 93 H 01/26/23 05:30 87 19 92/70 L 92 01/26/23 05:00 79 20 91/68 L 93 01/26/23 05:16 01/26/23 04:30 81 19 102/71 92 01/26/23 04:00 90 24 123/94 87 L 01/26/23 03:33 89 21 100/78 93 01/26/23 03:00 86 24 114/88 93 01/26/23 01:27 89 01/26/23 01:07 96 H 22 118/87 92 01/25/23 23:43 89 22 113/60 96 01/25/23 23:00 92 H 20 92 01/25/23 23:00 98/70 L 01/25/23 22:47 103 H 21 07/20/23 22:47 111/66 01/25/23 22:33 86/61 L 01/25/23 22:33 97 H 25 H 92 01/25/23 22:30 100 H 20 92 01/25/23 22:20 108/72 01/25/23 22:20 98 H 34 H 92 01/25/23 22:15 94 H 24 Pulse Ox O2 Del Method O2 Del Method O2 Flow Rate O2 Flow Rate 01/26/23 09:00 01/26/23 09:00 01/26/23 08:30 01/26/23 08:30 01/26/23 08:00 01/26/23 08:00 01/26/23 07:30 01/26/23 07:30 01/26/23 07:00 01/26/23 07:00 01/26/23 06:30 01/26/23 06:30 01/26/23 06:00 01/26/23 06:00 01/26/23 07:02 Nasal Cannula 4 01/26/23 06:56 Nasal Cannula 2 01/26/23 05:59 Nasal Cannula 4 01/26/23 05:59 Nasal Cannula 4 01/26/23 05:24 01/26/23 05:30 01/26/23 05:00 Nasal Cannula 4 01/26/23 05:16 90 Nasal Cannula 4 01/26/23 04:30 01/26/23 04:00 01/26/23 03:33 01/26/23 03:00 01/26/23 01:27 01/26/23 01:07 Nasal Cannula 3 01/25/23 23:43 Nasal Cannula 3 01/25/23 23:00 01/25/23 23:00 01/25/23 22:47 01/25/23 22:47 01/25/23 22:33 01/25/23 22:33 01/25/23 22:30 01/25/23 22:20 01/25/23 22:20 01/25/23 22:15 Laboratory Results 01/26/23 01/26/23 01/26/23 Range/Units 09:44 09:44 06:11 WBC (4.8-10.8) K/ul RBC (4.70-6.10) M/uL Hgb (14.0-18.0) g/dl Hct (42.0-52.0) % MCV (80.0-100.0) fL MCH (25.0-34.0) pg MCHC (32.0-36.0) g/dL RDW Std Deviation (36.4-46.3) fL RDW Coeff of [place] (11.5-14.5) % Plt Count (130-400) K/uL MPV (9.4-12.4) fL Immature Gran % (Auto) % Neut % (Auto) % Lymph % (Auto) % [place] % (Auto) % Eos % (Auto) % Baso % (Auto) % Neut # (Auto) (1.40-6.50) K/uL Lymph # (Auto) (1.2-3.4) K/uL [place] # (Auto) (0.11-0.59) K/uL Eos # (Auto) (0-0.50) K/uL Baso # (Auto) (0-0.2) K/uL Immature Gran # (Auto) (0.01-0.20) K/uL PT (9.0-12.0) Seconds INR (0.9-1.1) APTT (21.0-31.0) Seconds PTT Ratio VBG pH (7.36-7.41) VBG pCO2 (38-50) mmHg VBG pO2 mmHg VBG HCO3 mmol/L VBG O2 Saturation % VBG Base Excess mEq/L Sodium (136-145) mmol/L Potassium (3.5-5.1) mmol/L Chloride (98-107) mmol/L Carbon Dioxide (21-32) mmol/L Anion Gap (3-11) BUN (6-23) mg/dl Creatinine (0.6-1.4) mg/dl Est Cr Clr Drug Dosing ml/min Est GFR ( Amer) ml/min Est GFR (Non-Af Amer) ml/min BUN/Creatinine Ratio (10-20) Glucose (70-99(Fasting)) mg/dl Estimat Average Glucose 126 mg/dl Hemoglobin A1c 6.0 H (4.5-5.6) % Lactate (0.4-2.0) mmol/L Calcium (8.6-10.3) mg/dl Magnesium (1.7-2.4) mg/dl Total Bilirubin (0.2-1.0) mg/dl AST (13-39) U/L ALT (7-52) U/L Alkaline Phosphatase (34-104) U/L Troponin I High Sens (0-20) pg/ml Total Protein (6.0-8.3) gm/dl Albumin (3.4-5.0) gm/dl Globulin (2.5-4.0) gm/dl Albumin/Globulin Ratio (0.9-2) Procalcitonin (0-0.5) ng/ml Urine Color Urine Appearance (Clear) Urine pH (4.5-7.5) Ur Specific [place] (1.000-1.030) Urine Protein (Negative) Urine Glucose (UA) (Negative) Urine Ketones (Negative) Urine Blood (Negative) Urine Nitrite (Negative) Urine Bilirubin (Negative) Urine Urobilinogen (Negative) Ur Leukocyte Esterase (Negative) POC Stool Occult Blood (Negative) Stl C. cayetanensis PCR Pending Stool Rotavirus A PCR Pending Stl Adenov F 40/41 PCR Pending Stool Astrovirus (PCR) Pending Stool Campylobacter PCR Pending Stl C. diff Tox B Gene Pending Stool Cryptosporidium PCR Pending Stl E.coli Shiga Tox PCR Pending Stl Enterotoxigenic E PCR Pending Stool EAEC (PCR) Pending Stl E. histolytica PCR Pending Stool Giardia Lamblia PCR Pending Stool Salmonella PCR Pending Stool Sapovirus (PCR) Pending Stl P. shigelloides PCR Pending Stl Shigella/EIEC PCR Pending St Y.enterocolitica PCR Pending Stool Vibrio (PCR) Pending Stl Vibrio cholerae PCR Pending Stl Norovirus GI/GII PCR Pending SARS-CoV-2, RNA, NAAT (NEGATIVE) Blood Type Antibody Screen 01/26/23 01/26/23 01/26/23 Range/Units 06:11 06:11 01:12 WBC 15.55 H (4.8-10.8) K/ul RBC 4.56 L (4.70-6.10) M/uL Hgb 15.2 (14.0-18.0) g/dl Hct 44.2 (42.0-52.0) % MCV 96.9 (80.0-100.0) fL MCH 33.3 (25.0-34.0) pg MCHC 34.4 (32.0-36.0) g/dL RDW Std Deviation 51.6 H (36.4-46.3) fL RDW Coeff of [place] 14.5 (11.5-14.5) % Plt Count 221 (130-400) K/uL MPV 10.5 (9.4-12.4) fL Immature Gran % (Auto) 1.7 % Neut % (Auto) 61.5 % Lymph % (Auto) 26.5 % [place] % (Auto) 8.6 % Eos % (Auto) 0.9 % Baso % (Auto) 0.8 % Neut # (Auto) 9.56 H (1.40-6.50) K/uL Lymph # (Auto) 4.12 H (1.2-3.4) K/uL [place] # (Auto) 1.34 H (0.11-0.59) K/uL Eos # (Auto) 0.14 (0-0.50) K/uL Baso # (Auto) 0.13 (0-0.2) K/uL Immature Gran # (Auto) 0.26 H (0.01-0.20) K/uL PT (9.0-12.0) Seconds INR (0.9-1.1) APTT (21.0-31.0) Seconds PTT Ratio VBG pH (7.36-7.41) VBG pCO2 (38-50) mmHg VBG pO2 mmHg VBG HCO3 mmol/L VBG O2 Saturation % VBG Base Excess mEq/L Sodium 134 L (136-145) mmol/L Potassium 4.1 (3.5-5.1) mmol/L Chloride 104 (98-107) mmol/L Carbon Dioxide 23 (21-32) mmol/L Anion Gap 7 (3-11) BUN 58 H (6-23) mg/dl Creatinine 1.28 D (0.6-1.4) mg/dl Est Cr Clr Drug Dosing 66.5 ml/min Est GFR ( Amer) 65.7 ml/min Est GFR (Non-Af Amer) 56.7 ml/min BUN/Creatinine Ratio 45.3 H (10-20) Glucose 105 H (70-99(Fasting)) mg/dl Estimat Average Glucose mg/dl Hemoglobin A1c (4.5-5.6) % Lactate 1.5 (0.4-2.0) mmol/L Calcium 8.9 (8.6-10.3) mg/dl Magnesium 2.1 (1.7-2.4) mg/dl Total Bilirubin (0.2-1.0) mg/dl AST (13-39) U/L ALT (7-52) U/L Alkaline Phosphatase (34-104) U/L Troponin I High Sens 107.7 H* (0-20) pg/ml Total Protein (6.0-8.3) gm/dl Albumin (3.4-5.0) gm/dl Globulin (2.5-4.0) gm/dl Albumin/Globulin Ratio (0.9-2) Procalcitonin (0-0.5) ng/ml Urine Color Urine Appearance (Clear) Urine pH (4.5-7.5) Ur Specific [place] (1.000-1.030) Urine Protein (Negative) Urine Glucose (UA) (Negative) Urine Ketones (Negative) Urine Blood (Negative) Urine Nitrite (Negative) Urine Bilirubin (Negative) Urine Urobilinogen (Negative) Ur Leukocyte Esterase (Negative) POC Stool Occult Blood (Negative) Stl C. cayetanensis PCR Stool Rotavirus A PCR Stl Adenov F 40/41 PCR Stool Astrovirus (PCR) Stool Campylobacter PCR Stl C. diff Tox B Gene Stool Cryptosporidium PCR Stl E.coli Shiga Tox PCR Stl Enterotoxigenic E PCR Stool EAEC (PCR) Stl E. histolytica PCR Stool Giardia Lamblia PCR Stool Salmonella PCR Stool Sapovirus (PCR) Stl P. shigelloides PCR Stl Shigella/EIEC PCR St Y.enterocolitica PCR Stool Vibrio (PCR) Stl Vibrio cholerae PCR Stl Norovirus GI/GII PCR SARS-CoV-2, RNA, NAAT (NEGATIVE) Blood Type Antibody Screen 01/25/23 01/25/23 01/25/23 Range/Units Unknown Unknown 22:32 WBC (4.8-10.8) K/ul RBC (4.70-6.10) M/uL Hgb (14.0-18.0) g/dl Hct (42.0-52.0) % MCV (80.0-100.0) fL MCH (25.0-34.0) pg MCHC (32.0-36.0) g/dL RDW Std Deviation (36.4-46.3) fL RDW Coeff of [place] (11.5-14.5) % Plt Count (130-400) K/uL MPV (9.4-12.4) fL Immature Gran % (Auto) % Neut % (Auto) % Lymph % (Auto) % [place] % (Auto) % Eos % (Auto) % Baso % (Auto) % Neut # (Auto) (1.40-6.50) K/uL Lymph # (Auto) (1.2-3.4) K/uL [place] # (Auto) (0.11-0.59) K/uL Eos # (Auto) (0-0.50) K/uL Baso # (Auto) (0-0.2) K/uL Immature Gran # (Auto) (0.01-0.20) K/uL PT (9.0-12.0) Seconds INR (0.9-1.1) APTT (21.0-31.0) Seconds PTT Ratio VBG pH (7.36-7.41) VBG pCO2 (38-50) mmHg VBG pO2 mmHg VBG HCO3 mmol/L VBG O2 Saturation % VBG Base Excess mEq/L Sodium (136-145) mmol/L Potassium (3.5-5.1) mmol/L Chloride (98-107) mmol/L Carbon Dioxide (21-32) mmol/L Anion Gap (3-11) BUN (6-23) mg/dl Creatinine (0.6-1.4) mg/dl Est Cr Clr Drug Dosing ml/min Est GFR ( Amer) ml/min Est GFR (Non-Af Amer) ml/min BUN/Creatinine Ratio (10-20) Glucose (70-99(Fasting)) mg/dl Estimat Average Glucose mg/dl Hemoglobin A1c (4.5-5.6) % Lactate (0.4-2.0) mmol/L Calcium (8.6-10.3) mg/dl Magnesium 2.0 (1.7-2.4) mg/dl Total Bilirubin (0.2-1.0) mg/dl AST (13-39) U/L ALT (7-52) U/L Alkaline Phosphatase (34-104) U/L Troponin I High Sens 121.1 H* (0-20) pg/ml Total Protein (6.0-8.3) gm/dl Albumin (3.4-5.0) gm/dl Globulin (2.5-4.0) gm/dl Albumin/Globulin Ratio (0.9-2) Procalcitonin (0-0.5) ng/ml Urine Color Yellow Urine Appearance Clear (Clear) Urine pH 5.5 (4.5-7.5) Ur Specific [place] 1.018 (1.000-1.030) Urine Protein Negative (Negative) Urine Glucose (UA) Negative (Negative) Urine Ketones Negative (Negative) Urine Blood Negative (Negative) Urine Nitrite Negative (Negative) Urine Bilirubin Negative (Negative) Urine Urobilinogen Negative (Negative) Ur Leukocyte Esterase Negative (Negative) POC Stool Occult Blood (Negative) Stl C. cayetanensis PCR Stool Rotavirus A PCR Stl Adenov F 40/41 PCR Stool Astrovirus (PCR) Stool Campylobacter PCR Stl C. diff Tox B Gene Stool Cryptosporidium PCR Stl E.coli Shiga Tox PCR Stl Enterotoxigenic E PCR Stool EAEC (PCR) Stl E. histolytica PCR Stool Giardia Lamblia PCR Stool Salmonella PCR Stool Sapovirus (PCR) Stl P. shigelloides PCR Stl Shigella/EIEC PCR St Y.enterocolitica PCR Stool Vibrio (PCR) Stl Vibrio cholerae PCR Stl Norovirus GI/GII PCR SARS-CoV-2, RNA, NAAT NEGATIVE (NEGATIVE) Blood Type Antibody Screen 01/25/23 01/25/23 01/25/23 Range/Units 22:27 22:27 22:09 WBC (4.8-10.8) K/ul RBC (4.70-6.10) M/uL Hgb (14.0-18.0) g/dl Hct (42.0-52.0) % MCV (80.0-100.0) fL MCH (25.0-34.0) pg MCHC (32.0-36.0) g/dL RDW Std Deviation (36.4-46.3) fL RDW Coeff of [place] (11.5-14.5) % Plt Count (130-400) K/uL MPV (9.4-12.4) fL Immature Gran % (Auto) % Neut % (Auto) % Lymph % (Auto) % [place] % (Auto) % Eos % (Auto) % Baso % (Auto) % Neut # (Auto) (1.40-6.50) K/uL Lymph # (Auto) (1.2-3.4) K/uL [place] # (Auto) (0.11-0.59) K/uL Eos # (Auto) (0-0.50) K/uL Baso # (Auto) (0-0.2) K/uL Immature Gran # (Auto) (0.01-0.20) K/uL PT (9.0-12.0) Seconds INR (0.9-1.1) APTT (21.0-31.0) Seconds PTT Ratio VBG pH 7.42 H (7.36-7.41) VBG pCO2 35 L (38-50) mmHg VBG pO2 44 mmHg VBG HCO3 23 mmol/L VBG O2 Saturation 66.2 % VBG Base Excess -1.3 mEq/L Sodium (136-145) mmol/L Potassium (3.5-5.1) mmol/L Chloride (98-107) mmol/L Carbon Dioxide (21-32) mmol/L Anion Gap (3-11) BUN (6-23) mg/dl Creatinine (0.6-1.4) mg/dl Est Cr Clr Drug Dosing ml/min Est GFR ( Amer) ml/min Est GFR (Non-Af Amer) ml/min BUN/Creatinine Ratio (10-20) Glucose (70-99(Fasting)) mg/dl Estimat Average Glucose mg/dl Hemoglobin A1c (4.5-5.6) % Lactate 2.1 H* (0.4-2.0) mmol/L Calcium (8.6-10.3) mg/dl Magnesium (1.7-2.4) mg/dl Total Bilirubin (0.2-1.0) mg/dl AST (13-39) U/L ALT (7-52) U/L Alkaline Phosphatase (34-104) U/L Troponin I High Sens (0-20) pg/ml Total Protein (6.0-8.3) gm/dl Albumin (3.4-5.0) gm/dl Globulin (2.5-4.0) gm/dl Albumin/Globulin Ratio (0.9-2) Procalcitonin (0-0.5) ng/ml Urine Color Urine Appearance (Clear) Urine pH (4.5-7.5) Ur Specific [place] (1.000-1.030) Urine Protein (Negative) Urine Glucose (UA) (Negative) Urine Ketones (Negative) Urine Blood (Negative) Urine Nitrite (Negative) Urine Bilirubin (Negative) Urine Urobilinogen (Negative) Ur Leukocyte Esterase (Negative) POC Stool Occult Blood Positive A (Negative) Stl C. cayetanensis PCR Stool Rotavirus A PCR Stl Adenov F PCR Stool Astrovirus (PCR) Stool Campylobacter PCR Stl C. diff Tox B Gene Stool Cryptosporidium PCR Stl E.coli Shiga Tox PCR Stl Enterotoxigenic E PCR Stool EAEC (PCR) Stl E. histolytica PCR Stool Giardia Lamblia PCR Stool Salmonella PCR Stool Sapovirus (PCR) Stl P. shigelloides PCR Stl Shigella/EIEC PCR St Y.enterocolitica PCR Stool Vibrio (PCR) Stl Vibrio cholerae PCR Stl Norovirus GI/GII PCR SARS-CoV-2, RNA, NAAT (NEGATIVE) Blood Type Antibody Screen 01/25/23 01/25/23 01/25/23 Range/Units 21:15 21:13 21:13 WBC (4.8-10.8) K/ul RBC (4.70-6.10) M/uL Hgb (14.0-18.0) g/dl Hct (42.0-52.0) % MCV (80.0-100.0) fL MCH (25.0-34.0) pg MCHC (32.0-36.0) g/dL RDW Std Deviation (36.4-46.3) fL RDW Coeff of [place] (11.5-14.5) % Plt Count (130-400) K/uL MPV (9.4-12.4) fL Immature Gran % (Auto) % Neut % (Auto) % Lymph % (Auto) % [place] % (Auto) % Eos % (Auto) % Baso % (Auto) % Neut # (Auto) (1.40-6.50) K/uL Lymph # (Auto) (1.2-3.4) K/uL [place] # (Auto) (0.11-0.59) K/uL Eos # (Auto) (0-0.50) K/uL Baso # (Auto) (0-0.2) K/uL Immature Gran # (Auto) (0.01-0.20) K/uL PT 12.9 H (9.0-12.0) Seconds INR 1.2 H (0.9-1.1) APTT 25.1 (21.0-31.0) Seconds PTT Ratio 0.9 VBG pH (7.36-7.41) VBG pCO2 (38-50) mmHg VBG pO2 mmHg VBG HCO3 mmol/L VBG O2 Saturation % VBG Base Excess mEq/L Sodium 134 L (136-145) mmol/L Potassium 4.3 (3.5-5.1) mmol/L Chloride 101 (98-107) mmol/L Carbon Dioxide 21 (21-32) mmol/L Anion Gap 12 H (3-11) BUN 66 H (6-23) mg/dl Creatinine 1.66 H (0.6-1.4) mg/dl Est Cr Clr Drug Dosing 50.3 ml/min Est GFR ( Amer) 48.0 ml/min Est GFR (Non-Af Amer) 41.4 ml/min BUN/Creatinine Ratio 39.8 H (10-20) Glucose 128 H (70-99(Fasting)) mg/dl Estimat Average Glucose mg/dl Hemoglobin A1c (4.5-5.6) % Lactate (0.4-2.0) mmol/L Calcium 9.3 (8.6-10.3) mg/dl Magnesium (1.7-2.4) mg/dl Total Bilirubin 1.4 H (0.2-1.0) mg/dl AST 19 (13-39) U/L ALT 18 (7-52) U/L Alkaline Phosphatase 62 (34-104) U/L Troponin I High Sens 142.4 H* (0-20) pg/ml Total Protein 7.5 (6.0-8.3) gm/dl Albumin 4.1 (3.4-5.0) gm/dl Globulin 3.4 (2.5-4.0) gm/dl Albumin/Globulin Ratio 1.2 (0.9-2) Procalcitonin 0.24 (0-0.5) ng/ml Urine Color Urine Appearance (Clear) Urine pH (4.5-7.5) Ur Specific [place] (1.000-1.030) Urine Protein (Negative) Urine Glucose (UA) (Negative) Urine Ketones (Negative) Urine Blood (Negative) Urine Nitrite (Negative) Urine Bilirubin (Negative) Urine Urobilinogen (Negative) Ur Leukocyte Esterase (Negative) POC Stool Occult Blood (Negative) Stl C. cayetanensis PCR Stool Rotavirus A PCR Stl Adenov F PCR Stool Astrovirus (PCR) Stool Campylobacter PCR Stl C. diff Tox B Gene Stool Cryptosporidium PCR Stl E.coli Shiga Tox PCR Stl Enterotoxigenic E PCR Stool EAEC (PCR) Stl E. histolytica PCR Stool Giardia Lamblia PCR Stool Salmonella PCR Stool Sapovirus (PCR) Stl P. shigelloides PCR Stl Shigella/EIEC PCR St Y.enterocolitica PCR Stool Vibrio (PCR) Stl Vibrio cholerae PCR Stl Norovirus GI/GII PCR SARS-CoV-2, RNA, NAAT (NEGATIVE) Blood Type Antibody Screen 01/25/23 01/25/23 Range/Units 21:13 21:12 WBC 19.23 H (4.8-10.8) K/ul RBC 4.84 (4.70-6.10) M/uL Hgb 16.3 (14.0-18.0) g/dl Hct 47.4 (42.0-52.0) % MCV 97.9 (80.0-100.0) fL MCH 33.7 (25.0-34.0) pg MCHC 34.4 (32.0-36.0) g/dL RDW Std Deviation 51.6 H (36.4-46.3) fL RDW Coeff of [place] 14.3 (11.5-14.5) % Plt Count 263 (130-400) K/uL MPV 10.8 (9.4-12.4) fL Immature Gran % (Auto) % Neut % (Auto) % Lymph % (Auto) % [place] % (Auto) % Eos % (Auto) % Baso % (Auto) % Neut # (Auto) (1.40-6.50) K/uL Lymph # (Auto) (1.2-3.4) K/uL [place] # (Auto) (0.11-0.59) K/uL Eos # (Auto) (0-0.50) K/uL Baso # (Auto) (0-0.2) K/uL Immature Gran # (Auto) (0.01-0.20) K/uL PT (9.0-12.0) Seconds INR (0.9-1.1) APTT (21.0-31.0) Seconds PTT Ratio VBG pH (7.36-7.41) VBG pCO2 (38-50) mmHg VBG pO2 mmHg VBG HCO3 mmol/L VBG O2 Saturation % VBG Base Excess mEq/L Sodium (136-145) mmol/L Potassium (3.5-5.1) mmol/L Chloride (98-107) mmol/L Carbon Dioxide (21-32) mmol/L Anion Gap (3-11) BUN (6-23) mg/dl Creatinine (0.6-1.4) mg/dl Est Cr Clr Drug Dosing ml/min Est GFR ( Amer) ml/min Est GFR (Non-Af Amer) ml/min BUN/Creatinine Ratio (10-20) Glucose (70-99(Fasting)) mg/dl Estimat Average Glucose mg/dl Hemoglobin A1c (4.5-5.6) % Lactate (0.4-2.0) mmol/L Calcium (8.6-10.3) mg/dl Magnesium (1.7-2.4) mg/dl Total Bilirubin (0.2-1.0) mg/dl AST (13-39) U/L ALT (7-52) U/L Alkaline Phosphatase (34-104) U/L Troponin I High Sens (0-20) pg/ml Total Protein (6.0-8.3) gm/dl Albumin (3.4-5.0) gm/dl Globulin (2.5-4.0) gm/dl Albumin/Globulin Ratio (0.9-2) Procalcitonin (0-0.5) ng/ml Urine Color Urine Appearance (Clear) Urine pH (4.5-7.5) Ur Specific [place] (1.000-1.030) Urine Protein (Negative) Urine Glucose (UA) (Negative) Urine Ketones (Negative) Urine Blood (Negative) Urine Nitrite (Negative) Urine Bilirubin (Negative) Urine Urobilinogen (Negative) Ur Leukocyte Esterase (Negative) POC Stool Occult Blood (Negative) Stl C. cayetanensis PCR Stool Rotavirus A PCR Stl Adenov F 40/41 PCR Stool Astrovirus (PCR) Stool Campylobacter PCR Stl C. diff Tox B Gene Stool Cryptosporidium PCR Stl E.coli Shiga Tox PCR Stl Enterotoxigenic E PCR Stool EAEC (PCR) Stl E. histolytica PCR Stool Giardia Lamblia PCR Stool Salmonella PCR Stool Sapovirus (PCR) Stl P. shigelloides PCR Stl Shigella/EIEC PCR St Y.enterocolitica PCR Stool Vibrio (PCR) Stl Vibrio cholerae PCR Stl Norovirus GI/GII PCR SARS-CoV-2, RNA, NAAT (NEGATIVE) Blood Type A Negative Antibody Screen NEGATIVE
[2023-01-26 11:14] LABS: Adenovirus F 40/41 PCR Not Detected (NotDetected); Astrovirus PCR Not Detected (NotDetected); Campylobacter PCR Not Detected (NotDetected); Cryptosporidium PCR Not Detected (NotDetected); Cyclospora cayetanensis PCR Not Detected (NotDetected); Entamoeba histolytica PCR Not Detected (NotDetected); Enteroaggregative E.coli(EAEC) Not Detected (NotDetected); Enteropathogenic E.coli (EPEC) Not Detected (NotDetected); Enterotoxigenic E.coli (ETEC) Not Detected (NotDetected); Giardia lamblia PCR Not Detected (NotDetected); Plesiomonas shigelloides PCR Not Detected (NotDetected); Rotavirus A PCR Not Detected (NotDetected); Salmonella PCR Not Detected (NotDetected); Sapovirus PCR Not Detected (NotDetected); Shiga-like Toxin E.coli (STEC) Not Detected (NotDetected); Shigella/Enteroinvasive E.coli Not Detected (NotDetected); Vibrio cholerae PCR Not Detected (NotDetected); Vibrio species PCR Not Detected (NotDetected); Yersinia enterocolitica PCR Not Detected (NotDetected)
[2023-01-26 11:19] LABS: Hematocrit (blood only) 44.9 % (42.0-52.0); Hemoglobin 15.3 g/dl (14.0-18.0)
[2023-01-26 11:24] LABS: Norovirus GI/GII PCR DETECTED (NotDetected)
--- NOTE | 2023-01-26 14:16 | Electrocardiogram Report ---
Test Reason : Blood Pressure : / mmHG Vent. Rate : 113 BPM Atrial Rate : 113 BPM P-R Int : 154 ms QRS Dur : 084 ms QT Int : 342 ms P-R-T Axes : 044 025 047 degrees QTc Int : 469 ms Sinus tachycardia Otherwise normal ECG No previous ECGs available Confirmed by Cornelius Barone ([id number]) on 01/26/2023 12:22:35 PM Referred By: REFERRED SELF Confirmed By:Cornelius Barone
--- NOTE | 2023-01-26 16:38 | Communication Note ---
Date of Service: January 26, 2023 She was admitted with acute rectal bleed with associated hypoxia. Noted to have acute diverticulitis without any evidence of C. difficile colitis, he has been on intravenous antibiotic and has had GI evaluation for outpatient colonoscopy down the line. Remains otherwise stable and will start clears orally as per GI recommendation. Monitor CBC. Will a full progress note tomorrow DR Chantelle Dockery
[2023-01-26 18:05] LABS: Hematocrit (blood only) 46.2 % (42.0-52.0); Hemoglobin 15.5 g/dl (14.0-18.0)
[2023-01-27] MEDS: SODIUM CHLORIDE 0.9% 1000ML 1,000 ML IV SCH ×2 (00:56→10:37)
[2023-01-27] MEDS: PANTOprazole 40 MG in DEXTROSE 5% 100 ML IV SCH ×5 (01:19→20:19)
[2023-01-27] MEDS: ERTAPENEM SODIUM 1,000 MG in SYRINGE 0 ML IV SCH (05:43)
[2023-01-27] MEDS: DOXYCYCLINE HYCLATE 100 MG in DEXTROSE 5% 100 ML IV SCH ×2 (05:43→18:19)
[2023-01-27 07:00] LABS: BUN Creatinine Ratio 25.5 (10-20); Calcium 8.5 mg/dl (8.6-10.3); Creatinine Clr Calc Pharmacy 84.8 ml/min; Est GFR (African American) 90.8 ml/min; Est GFR (Non-African American) 78.4 ml/min
[2023-01-27] MEDS: ALBUT/IPRATROP 3MG/0.5MG NEB 3 ML VIAL NEB SCH ×4 (07:15→18:57)
[2023-01-27 07:22] LABS: Basophils # (auto) 0.12 K/uL (0-0.2); Basophils % (auto) 1.1 %; Eosinophils # (auto) 0.29 K/uL (0-0.50); Eosinophils % (auto) 2.6 %; Hematocrit (blood only) 41.3 % (42.0-52.0); Hemoglobin 13.8 g/dl (14.0-18.0); Immature Granulocytes # (auto) 0.22 K/uL (0.01-0.20); Lymphocytes # (auto) 2.44 K/uL (1.2-3.4); Lymphocytes % (auto) 22.1 %; Mean Corpuscular Hemoglobin 33.1 pg (25.0-34.0); Mean Corpuscular Hgb Conc 33.4 g/dL (32.0-36.0); Mean Platelet Volume 10.4 fL (9.4-12.4); Monocytes # (auto) 0.81 K/uL (0.11-0.59); Monocytes % (auto) 7.4 %; Neutrophils # (auto) 7.14 K/uL (1.40-6.50); Neutrophils % (auto) 64.8 %; Platelet Count 185 K/uL (130-400); RDW Coefficient of Variation 14.5 % (11.5-14.5); RDW Standard Deviation 52.3 fL (36.4-46.3); Red Blood Count 4.17 M/uL (4.70-6.10); White Blood Count 11.02 K/ul (4.8-10.8)
[2023-01-27] MEDS: UMECLIDINIUM/VILANTEROL 62.5/25MCG 7 PUFFS/INHALER INH SCH (08:35)
[2023-01-27] MEDS ORDERED: FUROSEMIDE INJ 20 MG/2 ML VIAL IV ONE (14:25)
--- NOTE | 2023-01-27 14:25 | Hospitalist Progress Note ---
Date of Service January 27, 2023 Assessment & Plan (1) Acute GI bleeding: Plan: 67-year-old male past medical history significant for hyperlipidemia, prediabetes, respiratory bronchiolitis associated interstitial lung disease, pulmonary emphysema, hypertension, AAA, lumbago, history of tobacco abuse says quit in 2008 presents with 1 episodes of blood per rectum. GI bleed-likely lower GI with nonspecific colitis Blood per rectum CT scan showing colitis Stool cultures came back positive for norovirus and Stool for C. difficile -negative Received IV fluid and that has been discontinued Diarrhea is improving and bleeding per rectum is improving Has been on intravenous Zosyn for nonspecific colitis GI consulted-appreciate input and recommendation for outpatient colonoscopy Hemoglobin is little dropped to 13.8 which is in part secondary to dilution Monitor hemoglobin tomorrow and if stable he will be discharged home Elevated troponin-likely secondary to demand ischemia Serial troponins have been negative No chest pain and significant EKG changes Echo of the heart showed EF of 60 to 65%, grade 1 diastolic dysfunction and mild aortic valve sclerosis Interstitial lung disease and pulmonary emphysema Hypoxia without any evidence of pulmonary embolism Requiring oxygen No obvious wheezing History of smoking History of respiratory bronchiolitis associated interstitial lung disease and pulmonary emphysema Has cough with phlegm CT chest without contrast no acute findings Empiric Zosyn and doxycycline Nebs [id number] and as needed Home inhalers Still requiring 2 L of oxygen via nasal cannula to maintain saturation Will likely need oxygen on discharge Leukocytosis Antibiotics as above P.o. vancomycin until stool for C. difficile studies comes back Vancomycin has been stopped Will likely need antibiotics for colitis on discharge Hypertension Hold his home lisinopril hydrochlorothiazide IV hydralazine as needed Will monitor Prediabetes Follow HbA1c levels AAA CT abdomen showing infrarenal abdominal aortic aneurysm 3.8 cm Needs follow-up DVT prophylaxis SCDs Disposition Close monitoring in telemetry Full code (2) Elevated troponin: (3) Hypoxia: Admission and Anticipated Discharge Date Admission Date: January 26, 2023 Subjective 01/27/2023 The patient was seen and examined in telemetry unit He has been feeling much better Denies any abdominal pain, nausea and or vomiting Still has diarrhea with blood per rectum but that is improving Review of Systems Review of Systems: All systems reviewed and are unremarkable except as noted below Physical Exam Physical Exam: Lying in bed comfortably Constitutional: well developed, well nourished, + ill appearing and + obese Eyes: PERRL, conjunctivae normal, anicteric sclerae ENMT: external ear and nose normal, oropharynx normal Neck: trachea midline, no thyromegaly Respiratory: no respiratory distress Auscultation: + diminished lung sounds and + crackles (Minimal bibasilar crackles) Cardiovascular: Rate/Rhythm: regular rate and regular rhythm; not tachycardic Heart Sounds: normal S1, normal S2 and + murmur Extremities: no edema Gastrointestinal (Abdomen): Inspection/Auscultation: normal bowel sounds; abdomen not distended Percussion/Palpation: abdomen soft; abdomen nontender Musculoskeletal: No acute arthritis involving any of the joint Neurologic: normal touch/pain/proprioception and moves all extremities; no focal motor deficits Psychiatric: A+Ox3, euthymic affect Lymphatic: no cervical or axillary lymphadenopathy Results & Data Results & Data Vital Signs (Past 12 Hours) Vital Signs Temp Pulse Pulse Resp BP BP Pulse Ox 01/27/23 11:03 36.5 C 95 H 18 119/79 86 L 01/27/23 11:25 89 90 H 88 L 01/27/23 09:10 01/27/23 07:20 37.0 C 91 H 18 115/73 91 01/27/23 07:15 93 H 20 91 01/27/23 03:16 36.5 C 87 18 105/69 92 O2 Del Method O2 Flow Rate 01/27/23 11:03 Nasal Cannula 1.0 01/27/23 11:25 Nasal Cannula 1 01/27/23 09:10 Nasal Cannula 1 01/27/23 07:20 Nasal Cannula 1.0 01/27/23 07:15 Nasal Cannula 1 01/27/23 03:16 Nasal Cannula 1 Laboratory Results Short CBC 01/26/23 01/27/23 Range/Units 17:18 05:40 WBC 11.02 H (4.8-10.8) K/ul Hgb 15.5 13.8 L (14.0-18.0) g/dl Hct 46.2 41.3 L (42.0-52.0) % Plt Count 185 (130-400) K/uL BMP 01/27/23 05:40 Sodium 138 Potassium 4.0 Chloride 109 H Carbon Dioxide 23 BUN 25 H D Creatinine 0.98 D Glucose 102 H Calcium 8.5 L Medications Administered Current Inpatient Medications Acetaminophen (Acetaminophen 325 Mg Tab) 650 mg PO Q4H PRN PRN Reason: Pain or Fever Stop: 02/25/23 05:08 Albuterol (Albut/Ipratrop 3mg/0.5mg Neb 3 Ml Vial) 3 ml NEB QIDR [facility]; Protocol Stop: 02/25/23 06:59 Last Admin: 01/27/23 11:25 Dose: 3 ml Albuterol (Albut/Ipratrop 3mg/0.5mg Neb 3 Ml Vial) 3 ml NEB Q4R PRN; Protocol PRN Reason: Shortness Of Breath Or Wheezing Stop: 02/25/23 05:08 Pantoprazole Sodium 40 mg/ (Dextrose) 100 mls @ 20 mls/hr IV Q5H [facility] Stop: 02/24/23 22:44 Last Admin: 01/27/23 10:37 Dose: 8 mg/hr, 20 mls/hr Doxycycline Hyclate 100 mg/ (Dextrose) 110 mls @ 50 mls/hr IV Q12H [facility] Stop: 02/02/23 05:59 Last Infusion: 01/27/23 07:57 Dose: Infused Ertapenem 1,000 mg/ Syringe 10 mls @ 2 mls/min IV Q24H [facility] Stop: 02/05/23 05:59 Last Admin: 01/27/23 05:43 Dose: 2 mls/min Nitroglycerin (Nitroglycerin Sl 0.4 Mg/Tab Tab) 0.4 mg SL Q5M PRN PRN Reason: Chest Pain Stop: 02/25/23 05:08 Ondansetron HCl (Ondansetron Inj 2 Mg/Ml 2 Ml Vial) 4 mg IV Q6H PRN PRN Reason: Nausea Stop: 02/25/23 05:08 Umeclidinium/Vilanterol (Umeclidinium/Vilanterol 62.5/25mcg 7 Puffs/Inhaler) 1 puffs INH DAILY [facility] Stop: 02/25/23 08:59 Last Admin: 01/27/23 08:35 Dose: 1 puffs
[2023-01-28] MEDS: PANTOprazole 40 MG in DEXTROSE 5% 100 ML IV SCH ×2 (01:14→06:11)
[2023-01-28 05:59] LABS: Eosinophils # (auto) 0.23 K/uL (0-0.50); Eosinophils % (auto) 2.3 %; Hematocrit (blood only) 40.1 % (42.0-52.0); Hemoglobin 13.6 g/dl (14.0-18.0); Immature Granulocytes # (auto) 0.18 K/uL (0.01-0.20); Immature Granulocytes % (auto) 1.8 %; Lymphocytes # (auto) 2.32 K/uL (1.2-3.4); Lymphocytes % (auto) 22.9 %; Mean Corpuscular Hemoglobin 33.7 pg (25.0-34.0); Mean Corpuscular Hgb Conc 33.9 g/dL (32.0-36.0); Mean Corpuscular Volume 99.3 fL (80.0-100.0); Mean Platelet Volume 9.9 fL (9.4-12.4); Monocytes # (auto) 0.97 K/uL (0.11-0.59); Monocytes % (auto) 9.6 %; Neutrophils # (auto) 6.32 K/uL (1.40-6.50); Neutrophils % (auto) 62.4 %; Platelet Count 184 K/uL (130-400); RDW Coefficient of Variation 14.1 % (11.5-14.5); RDW Standard Deviation 51.3 fL (36.4-46.3); Red Blood Count 4.04 M/uL (4.70-6.10); White Blood Count 10.12 K/ul (4.8-10.8)
[2023-01-28] MEDS: ERTAPENEM SODIUM 1,000 MG in SYRINGE 0 ML IV SCH (06:11)
[2023-01-28 06:17] LABS: BUN Creatinine Ratio 11.2 (10-20); Calcium 8.7 mg/dl (8.6-10.3); Creatinine Clr Calc Pharmacy 71.2 ml/min; Est GFR (African American) 74.1 ml/min; Est GFR (Non-African American) 63.9 ml/min
[2023-01-28] MEDS: DOXYCYCLINE HYCLATE 100 MG in DEXTROSE 5% 100 ML IV SCH (06:29)
[2023-01-28] MEDS: ALBUT/IPRATROP 3MG/0.5MG NEB 3 ML VIAL NEB SCH ×4 (07:16→18:53)
[2023-01-28] MEDS: UMECLIDINIUM/VILANTEROL 62.5/25MCG 7 PUFFS/INHALER INH SCH (08:39)
[2023-01-28] MEDS ORDERED: FUROSEMIDE 40 MG/4 ML VIAL IV ONE (09:29)
--- NOTE | 2023-01-28 09:31 | XRay Report ---
XR chest 2V PA/lateral CLINICAL HISTORY: Congestive heart failure. COMPARISON STUDY: Chest radiograph and chest CT January 25, 2023. FINDINGS: There is no pneumothorax or pleural effusion. Severe emphysema is present. Cardiomediastina l is stable. Mild interstitial thickening is present. There is no consolidation to suggest pneumonia. IMPRESSION: 1. Severe emphysema. No consolidation. 2. Mild interstitial thickening. This is likely related to emphysema however superimposed pulmonary e kirill could appear similar. ACT 112: Negative or not required by law. Electronically signed by: Alvarez Eaton M.D. 01/28/2023 9:28 AM
[2023-01-28] MEDS: CIPROFLOXACIN 500 MG TAB PO SCH ×2 (11:11→20:57)
[2023-01-28] MEDS: metroNIDAZOLE 500 MG TAB PO SCH ×2 (11:11→20:57)
[2023-01-28] MEDS: methylPREDNISolone 20 MG in SYRINGE 0 ML IV SCH ×2 (13:03→20:58)
--- NOTE | 2023-01-28 14:34 | Hospitalist Progress Note ---
Date of Service January 28, 2023 Assessment & Plan (1) Acute GI bleeding: Plan: 67-year-old male past medical history significant for hyperlipidemia, prediabetes, respiratory bronchiolitis associated interstitial lung disease, pulmonary emphysema, hypertension, AAA, lumbago, history of tobacco abuse says quit in 2008 presents with 1 episodes of blood per rectum. Sepsis on admission likely secondary to nonspecific colitis, C. difficile colitis has been ruled out GI bleed-likely lower GI with nonspecific colitis Blood per rectum CT scan showing colitis Stool cultures came back positive for norovirus and Stool for C. difficile -negative Received IV fluid and that has been discontinued Diarrhea is improving and bleeding per rectum is improving Has been on intravenous Zosyn for nonspecific colitis GI consulted-appreciate input and recommendation for outpatient colonoscopy Hemoglobin is little dropped to 13.8 which is in part secondary to dilution Monitor hemoglobin tomorrow and if stable he will be discharged home Elevated troponin-likely secondary to demand ischemia Serial troponins have been negative No chest pain and significant EKG changes Echo of the heart showed EF of 60 to 65%, grade 1 diastolic dysfunction and mild aortic valve sclerosis Interstitial lung disease and pulmonary emphysema Hypoxia without any evidence of pulmonary embolism Requiring oxygen No obvious wheezing History of smoking History of respiratory bronchiolitis associated interstitial lung disease and pulmonary emphysema Has cough with phlegm CT chest without contrast no acute findings Empiric Zosyn and doxycycline Nebs [id number] and as needed Home inhalers Still requiring 2 L of oxygen via nasal cannula to maintain saturation Has been requiring up to 5 L of oxygen to maintain saturation with ambulation Will start small dose of Solu-Medrol and prednisone down the line if the condition improves Will not be discharged today Leukocytosis Antibiotics as above P.o. vancomycin until stool for C. difficile studies comes back Vancomycin has been stopped Will likely need antibiotics for colitis on discharge Hypertension Hold his home lisinopril hydrochlorothiazide IV hydralazine as needed Will monitor Prediabetes Follow HbA1c levels AAA CT abdomen showing infrarenal abdominal aortic aneurysm 3.8 cm Needs follow-up DVT prophylaxis SCDs Disposition Close monitoring in telemetry Full code (2) Elevated troponin: (3) Hypoxia: Admission and Anticipated Discharge Date Admission Date: January 26, 2023 Subjective 01/27/2023 The patient was seen and examined in telemetry unit He has been feeling much better Denies any abdominal pain, nausea and or vomiting Still has diarrhea with blood per rectum but that is improving Review of Systems Review of Systems: All systems reviewed and are unremarkable except as noted below Physical Exam Physical Exam: Lying in bed comfortably Constitutional: well developed, well nourished, + ill appearing and + obese Eyes: PERRL, conjunctivae normal, anicteric sclerae ENMT: external ear and nose normal, oropharynx normal Neck: trachea midline, no thyromegaly Respiratory: no respiratory distress Auscultation: + diminished lung sounds and + crackles (Minimal bibasilar crackles) Cardiovascular: Rate/Rhythm: regular rate and regular rhythm; not tachycardic Heart Sounds: normal S1, normal S2 and + murmur Extremities: no edema Gastrointestinal (Abdomen): Inspection/Auscultation: normal bowel sounds; abdomen not distended Percussion/Palpation: abdomen soft; abdomen nontender Neurologic: normal touch/pain/proprioception and moves all extremities; no focal motor deficits Psychiatric: A+Ox3, euthymic affect Lymphatic: no cervical or axillary lymphadenopathy Results & Data Results & Data Vital Signs (Past 12 Hours) Vital Signs Temp Pulse Pulse Pulse Pulse Pulse Pulse 01/28/23 14:24 36.7 C 103 H 01/28/23 14:20 01/28/23 14:17 103 H 01/28/23 12:46 01/28/23 11:29 98 H 01/28/23 10:45 99 H 01/28/23 10:19 116 H 112 H 115 H 111 H 95 H 01/28/23 07:28 36.5 C 103 H 01/28/23 07:17 87 01/28/23 03:06 37 C 59 L Resp Resp Resp Resp Resp Resp BP 01/28/23 14:24 18 121/69 01/28/23 14:20 01/28/23 14:17 18 01/28/23 12:46 01/28/23 11:29 18 107/69 01/28/23 10:45 20 01/28/23 10:19 20 20 20 20 16 01/28/23 07:28 18 01/28/23 07:17 18 01/28/23 03:06 18 107/58 L BP Pulse Ox Pulse Ox Pulse Ox Pulse Ox Pulse Ox Pulse Ox 01/28/23 14:24 90 01/28/23 14:20 90 01/28/23 14:17 82 L 01/28/23 12:46 01/28/23 11:29 89 L 01/28/23 10:45 96 01/28/23 10:19 85 L 87 L 90 81 L 93 01/28/23 07:28 106/67 93 01/28/23 07:17 93 01/28/23 03:06 94 O2 Del Method O2 Flow Rate O2 Flow Rate O2 Flow Rate O2 Flow Rate 01/28/23 14:24 Nasal Cannula 2.0 01/28/23 14:20 Nasal Cannula 2 01/28/23 14:17 Room Air 01/28/23 12:46 Room Air 01/28/23 11:29 Room Air 01/28/23 10:45 Room Air 01/28/23 10:19 2 3 4 01/28/23 07:28 Nasal Cannula 3.0 01/28/23 07:17 Nasal Cannula 3 01/28/23 03:06 Nasal Cannula 3
[2023-01-29] MEDS: ALBUT/IPRATROP 3MG/0.5MG NEB 3 ML VIAL NEB SCH ×3 (06:46→15:24)
[2023-01-29 07:18] LABS: BUN Creatinine Ratio 15.2 (10-20); Calcium 9.1 mg/dl (8.6-10.3); Creatinine Clr Calc Pharmacy 78.3 ml/min; Est GFR (African American) 83.5 ml/min; Est GFR (Non-African American) 72.1 ml/min; Potassium 4.2 mmol/L (3.5-5.1)
[2023-01-29 07:58] LABS: Hematocrit (blood only) 40.6 % (42.0-52.0); Hemoglobin 13.7 g/dl (14.0-18.0); Mean Corpuscular Volume 97.8 fL (80.0-100.0); Red Blood Count 4.15 M/uL (4.70-6.10); White Blood Count 17.02 K/ul (4.8-10.8)
[2023-01-29 07:59] LABS: Basophils # (auto) 0.03 K/uL (0-0.2); Basophils % (auto) 0.2 %; Immature Granulocytes # (auto) 0.23 K/uL (0.01-0.20); Immature Granulocytes % (auto) 1.4 %; Lymphocytes # (auto) 1.64 K/uL (1.2-3.4); Lymphocytes % (auto) 9.6 %; Mean Corpuscular Hgb Conc 33.7 g/dL (32.0-36.0); Mean Platelet Volume 10.3 fL (9.4-12.4); Monocytes # (auto) 0.84 K/uL (0.11-0.59); Monocytes % (auto) 4.9 %; Neutrophils # (auto) 14.28 K/uL (1.40-6.50); Neutrophils % (auto) 83.9 %; Platelet Count 200 K/uL (130-400); RDW Coefficient of Variation 13.8 % (11.5-14.5); RDW Standard Deviation 49.8 fL (36.4-46.3)
[2023-01-29] MEDS: UMECLIDINIUM/VILANTEROL 62.5/25MCG 7 PUFFS/INHALER INH SCH (08:07)
[2023-01-29] MEDS: methylPREDNISolone 20 MG in SYRINGE 0 ML IV SCH (08:08)
[2023-01-29] MEDS: metroNIDAZOLE 500 MG TAB PO SCH (08:08)
[2023-01-29] MEDS: CIPROFLOXACIN 500 MG TAB PO SCH (08:08)
[2023-01-29] MEDS ORDERED: PANTOprazole 40 MG TAB PO SCH (09:00)
[2023-01-29] MEDS ORDERED: FUROSEMIDE 40 MG/4 ML VIAL IV STA (09:53)
[2023-01-29] MEDS ORDERED: POTASSIUM CHLORIDE CRTAB 20 MEQ TABCR PO STA (10:18)
--- NOTE | 2023-01-29 11:36 | Electrocardiogram Report ---
Test Reason : Blood Pressure : / mmHG Vent. Rate : 091 BPM Atrial Rate : 091 BPM P-R Int : 166 ms QRS Dur : 100 ms QT Int : 392 ms P-R-T Axes : 041 001 013 degrees QTc Int : 482 ms Normal sinus rhythm Normal ECG When compared with ECG of 25-JAN-2023 21:03, No significant change was found Confirmed by Cornelius Barone ([id number] on 01/29/2023 11:36:32 AM Referred By: REFERRED SELF Confirmed By:Cornelius Barone
--- NOTE | 2023-01-29 12:33 | Hospitalist Progress Note ---
Date of Service January 29, 2023 Assessment & Plan (1) Acute GI bleeding: Plan: 67-year-old male past medical history significant for hyperlipidemia, prediabetes, respiratory bronchiolitis associated interstitial lung disease, pulmonary emphysema, hypertension, AAA, lumbago, history of tobacco abuse says quit in 2008 presents with 1 episodes of blood per rectum. Sepsis on admission likely secondary to nonspecific colitis, C. difficile colitis has been ruled out GI bleed-likely lower GI with nonspecific colitis Blood per rectum CT scan showing colitis Stool cultures came back positive for norovirus and Stool for C. difficile -negative Received IV fluid and that has been discontinued Diarrhea is improving and bleeding per rectum is improving Has been on intravenous Zosyn for nonspecific colitis GI consulted-appreciate input and recommendation for outpatient colonoscopy Hemoglobin is little dropped to 13.8 which is in part secondary to dilution Monitor hemoglobin tomorrow and if stable he will be discharged home No more bleeding per rectum and he will be discharged home this afternoon He will be given oral antibiotic to finish the course Elevated troponin-likely secondary to demand ischemia Serial troponins have been negative No chest pain and significant EKG changes Echo of the heart showed EF of 60 to 65%, grade 1 diastolic dysfunction and mild aortic valve sclerosis Interstitial lung disease and pulmonary emphysema Hypoxia without any evidence of pulmonary embolism Requiring oxygen No obvious wheezing History of smoking History of respiratory bronchiolitis associated interstitial lung disease and pulmonary emphysema Has cough with phlegm CT chest without contrast no acute findings Empiric Zosyn and doxycycline Nebs [id number] and as needed Home inhalers Still requiring 2 L of oxygen via nasal cannula to maintain saturation Has been requiring up to 5 L of oxygen to maintain saturation with ambulation Will start small dose of Solu-Medrol and prednisone down the line if the condition improves Has had 2 steps O2 saturation test and he will require 4 L with ambulation and 0 at rest He will have prednisone for 4 more days to continue He was strongly advised to have outpatient nocturnal pulse oximetry to evaluate for requirements of CPAP and/or BiPAP with oxygen as recommended by his quarantine inspector Leukocytosis Antibiotics as above P.o. vancomycin until stool for C. difficile studies comes back Vancomycin has been stopped Will likely need antibiotics for colitis on discharge Hypertension Hold his home lisinopril hydrochlorothiazide IV hydralazine as needed Will monitor Prediabetes Follow HbA1c levels AAA CT abdomen showing infrarenal abdominal aortic aneurysm 3.8 cm Needs follow-up DVT prophylaxis SCDs Disposition Close monitoring in telemetry Discharged home this afternoon Full code (2) Elevated troponin: (3) Hypoxia: Admission and Anticipated Discharge Date Admission Date: January 26, 2023 Subjective 01/27/2023 The patient was seen and examined in telemetry unit He has been feeling much better Denies any abdominal pain, nausea and or vomiting Still has diarrhea with blood per rectum but that is improving 01/29/2023 The patient was seen and examined in telemetry unit He has been feeling much better though remains short of breath He denies any abdominal pain in the bleeding per rectum has stopped No fever and no chills Has had 2 steps O2 saturation and he will be requiring 4 L with ambulation and 0 at rest Review of Systems Review of Systems: All systems reviewed and are unremarkable except as noted below Physical Exam 2 Physical Exam: Lying in bed comfortably Constitutional: well developed, well nourished, + ill appearing and + obese Eyes: PERRL, conjunctivae normal, anicteric sclerae ENMT: external ear and nose normal, oropharynx normal Neck: trachea midline, no thyromegaly Respiratory: no respiratory distress Auscultation: + diminished lung sounds and + crackles (Minimal bibasilar crackles) Cardiovascular: Rate/Rhythm: regular rate and regular rhythm; not tachycardic Heart Sounds: normal S1, normal S2 and + murmur Extremities: no edema Gastrointestinal (Abdomen): Inspection/Auscultation: normal bowel sounds; abdomen not distended Percussion/Palpation: abdomen soft; abdomen nontender Neurologic: normal touch/pain/proprioception and moves all extremities; no focal motor deficits Psychiatric: A+Ox3, euthymic affect Lymphatic: no cervical or axillary lymphadenopathy Results & Data Results & Data Vital Signs (Past 12 Hours) Vital Signs Temp Pulse Resp BP Pulse Ox O2 Del Method O2 Flow Rate 01/29/23 10:53 96 H 16 92 Nasal Cannula 3 01/29/23 10:48 36.7 C 92 H 18 134/84 92 Nasal Cannula 3 01/29/23 09:35 Room Air 01/29/23 07:00 36.3 C L 87 19 116/69 100 Nebulizer 01/29/23 06:46 86 16 99 Nasal Cannula 4 01/29/23 03:35 36.5 C 89 18 112/69 92 Nasal Cannula 4 Laboratory Results Short CBC 01/29/23 Range/Units 06:29 WBC 17.02 H (4.8-10.8) K/ul Hgb 13.7 L (14.0-18.0) g/dl Hct 40.6 L (42.0-52.0) % Plt Count 200 (130-400) K/uL [facility] 01/29/23 06:29 Sodium 135 L Potassium 4.2 Chloride 102 Carbon Dioxide 26 BUN 16 Creatinine 1.05 Glucose 142 H Calcium 9.1 Medications Administered Current Inpatient Medications Acetaminophen (Acetaminophen 325 Mg Tab) 650 mg PO Q4H PRN PRN Reason: Pain or Fever Stop: 02/25/23 05:08 Albuterol (Albut/Ipratrop 3mg/0.5mg Neb 3 Ml Vial) 3 ml NEB QIDR [facility]; Protocol Stop: 02/25/23 06:59 Last Admin: 01/29/23 10:53 Dose: 3 ml Albuterol (Albut/Ipratrop 3mg/0.5mg Neb 3 Ml Vial) 3 ml NEB Q4R PRN; Protocol PRN Reason: Shortness Of Breath Or Wheezing Stop: 02/25/23 05:08 Ciprofloxacin (Ciprofloxacin 500 Mg Tab) 500 mg PO BID [facility]; Protocol Stop: 02/07/23 10:14 Last Admin: 01/29/23 08:08 Dose: 500 mg Methylprednisolone 20 mg/ (Syringe) 0.32 mls @ 1.5 mls/min IV BID [facility] Stop: 02/27/23 12:39 Last Admin: 01/29/23 08:08 Dose: 1.5 mls/min Metronidazole (Metronidazole 500 Mg Tab) 500 mg PO BID [facility]; Protocol Stop: 02/07/23 10:14 Last Admin: 01/29/23 08:08 Dose: 500 mg Nitroglycerin (Nitroglycerin Sl 0.4 Mg/Tab Tab) 0.4 mg SL Q5M PRN PRN Reason: Chest Pain Stop: 02/25/23 05:08 Ondansetron HCl (Ondansetron Inj 2 Mg/Ml 2 Ml Vial) 4 mg IV Q6H PRN PRN Reason: Nausea Stop: 02/25/23 05:08 Pantoprazole Sodium (Pantoprazole 40 Mg Tab) 40 mg PO QAM [facility] Stop: 02/28/23 08:59 Last Admin: 01/29/23 08:08 Dose: 40 mg Umeclidinium/Vilanterol (Umeclidinium/Vilanterol 62.5/25mcg 7 Puffs/Inhaler) 1 puffs INH DAILY [facility] Stop: 02/25/23 08:59 Last Admin: 01/29/23 08:07 Dose: 1 puffs
--- NOTE | 2023-01-30 07:15 | Discharge Summary ---
Date of Service January 30, 2023 Admission HPI Per Admitting Provider 67-year-old male past medical history significant for hyperlipidemia, prediabetes, respiratory bronchiolitis associated interstitial lung disease, pulmonary emphysema, hypertension, AAA, lumbago, history of tobacco abuse says quit in 2008 presents with 1 episodes of blood per rectum. Denies any abdominal pain. No nausea or vomiting. Has cough since about 1 to 2 days bringing yellowish phlegm. Denies any chest pain. Says he gets mild short of breath. Denies any headache. He was feeling lightheaded. No blurred visions. No earache. Has some runny nose. Appetite is okay. Normal bladder movements. In the ER he was slightly hypoxic and requiring oxygen. When he came in blood pressure was soft but improved with fluids. Past medical history as mentioned above Past surgical history colonoscopy, dental procedure, Admission Exam Per Admitting Provider Physical Exam: General- not in acute distress Head- atraumatic Eyes- PERRL ENT- oropharynx clear Neck- supple, no JVD, Lungs- clear to auscultation and percussion Heart- regular rhythm; no murmur, no gallop, no rub appreciated Abdomen- normal bowel sounds, soft, nontender, no masses or hepatosplenomegaly Extremities- no pretibial edema, no erythema Neuro- alert, oriented x 3; PERRL no facial palsy; no dysarthria;Non focal. Skin- warm & dry Principal Diagnosis Severe COPD, rectal bleed, nonspecific colitis Discharge Exam Lying in bed comfortably Constitutional well developed, well nourished, + ill appearing and + obese Eyes PERRL, conjunctivae normal, anicteric sclerae ENMT external ear and nose normal, oropharynx normal Neck trachea midline, no thyromegaly Respiratory no respiratory distress Auscultation: + diminished lung sounds and + crackles (Minimal bibasilar crackles) Cardiovascular Rate/Rhythm: regular rate and regular rhythm; not tachycardic Heart Sounds: normal S1, normal S2 and + murmur Extremities: no edema Gastrointestinal (Abdomen) Inspection/Auscultation: normal bowel sounds; abdomen not distended Percussion/Palpation: abdomen soft; abdomen nontender Neurologic normal touch/pain/proprioception and moves all extremities; no focal motor deficits Psychiatric A+Ox3, euthymic affect Lymphatic no cervical or axillary lymphadenopathy Discharge Data Allergies Allergy/AdvReac Type Severity Reaction Status Date / Time amoxicillin Allergy Unknown Hives Verified 01/26/23 05:32 Consultations 01/25/23 23:08 ED Decision to Admit Stat 01/26/23 08:00 Consult Gastroenterology Routine Ordered Studies 01/25/23 22:17 CT abd pelvis wo con Stat 01/25/23 22:20 CT chest diagnostic wo con Stat Hospital Course (1) Acute GI bleedin-year-old male past medical history significant for hyperlipidemia, prediabetes, respiratory bronchiolitis associated interstitial lung disease, pulmonary emphysema, hypertension, AAA, lumbago, history of tobacco abuse says quit in 2008 presents with 1 episodes of blood per rectum. Sepsis on admission likely secondary to nonspecific colitis, C. difficile colitis has been ruled out GI bleed-likely lower GI with nonspecific colitis Blood per rectum CT scan showing colitis Stool cultures came back positive for norovirus and Stool for C. difficile -negative Received IV fluid and that has been discontinued Diarrhea is improving and bleeding per rectum is improving Has been on intravenous Zosyn for nonspecific colitis GI consulted-appreciate input and recommendation for outpatient colonoscopy Hemoglobin is little dropped to 13.8 which is in part secondary to dilution Monitor hemoglobin tomorrow and if stable he will be discharged home No more bleeding per rectum and he will be discharged home this afternoon He will be given oral antibiotic to finish the course Elevated troponin-likely secondary to demand ischemia Serial troponins have been negative No chest pain and significant EKG changes Echo of the heart showed EF of 60 to 65%, grade 1 diastolic dysfunction and mild aortic valve sclerosis Interstitial lung disease and pulmonary emphysema Hypoxia without any evidence of pulmonary embolism Requiring oxygen No obvious wheezing History of smoking History of respiratory bronchiolitis associated interstitial lung disease and pulmonary emphysema Has cough with phlegm CT chest without contrast no acute findings Empiric Zosyn and doxycycline Nebs [id number] and as needed Home inhalers Still requiring 2 L of oxygen via nasal cannula to maintain saturation Has been requiring up to 5 L of oxygen to maintain saturation with ambulation Will start small dose of Solu-Medrol and prednisone down the line if the condition improves Has had 2 steps O2 saturation test and he will require 4 L with ambulation and 0 at rest He will have prednisone for 4 more days to continue He was strongly advised to have outpatient nocturnal pulse oximetry to evaluate for requirements of CPAP and/or BiPAP with oxygen as recommended by his seed buyer Leukocytosis Antibiotics as above P.o. vancomycin until stool for C. difficile studies comes back Vancomycin has been stopped Will likely need antibiotics for colitis on discharge Hypertension Hold his home lisinopril hydrochlorothiazide IV hydralazine as needed Will monitor Prediabetes Follow HbA1c levels AAA CT abdomen showing infrarenal abdominal aortic aneurysm 3.8 cm Needs follow-up DVT prophylaxis SCDs Disposition Close monitoring in telemetry Discharged home this afternoon Full code (2) Elevated troponin: (3) Hypoxia: Total Time Total Time Spent Total Time Spent (In Minutes): 40 minutes Discharge Plan Discharge Items Patient Disposition: Home - Self-Care Reason For Visit: BLOOD PER RECTUM Discharge Diagnosis: Severe COPD, rectal bleed, nonspecific colitis Condition on Discharge: Fair Activity: Resume your previous activity Non-emergency contact: Primary Care Provider Call non-emergency contact if: you have any medication questions and your symptoms worsen Follow-up/Referrals: Ck Palma MD [Primary Care Provider] - 02/06/23 10:20 am (Date & Time 02/06/2023 10:20 AM Provider Ck Palma MD Department [facility] ) Diet: Low Fiber Addtl Attending Provider Instructions: Please take precaution to avoid falls Please get nighttime oxygen water from your PCP and try to comply with the nocturnal pulse oximetry test as they are recommending Please finish the course of antibiotic Keep appointment with the healthcare providers Use oxygen as advised Pending Studies at Discharge: No Stand-Alone Forms: My [facility], Smoking Cessation Medications and DC Order Prescriptions: New metronidazole 500 mg Tablet 500 mg PO BID 7 Days Qty: 14 0RF ciprofloxacin HCl 500 mg Tablet 500 mg PO BID 7 Days Qty: 14 0RF pantoprazole 40 mg Tablet,Delayed Release (Dr/Ec) 40 mg PO QAM 30 Days Qty: 30 0RF prednisone 20 mg tablet 40 mg PO DAILY 3 Days Qty: 6 0RF Continued lisinopril-hydrochlorothiazide 10-12.5 mg tablet 1 tab PO DAILY Anoro Ellipta 62.5-25 mcg/actuation blister with device 1 inh INHALATION DAILY aspirin 81 mg Capsule,Delayed Release(Dr/Ec) 81 mg PO DAILY Discharge Orders: Discharge Order (Routine); Ordered 01/29/23 Ordered By: Anibal Trejo/Other Patient Handouts: Prediabetes, 5 Steps for Eating Healthier Admission Data Admit Date/Time: 01/26/23 03:59 Attending Provider: Anibal Dockery Admit Provider: Ronald Flower Primary Care Provider: Ck Palma Other Providers: Ronald Flower ; Klarissa Platt ; Jonatan Brooke Other Interventions: Discharge Summary Assessment (RN) Last Done: 01/29/23 17:34
== END 2023-01-29 17:35 | disposition home or self-care (01) | DRG 872 ==
LOC: ED 20:42 → EDINP 01-26 03:59 → SUATTDRO 01-26 03:59 → EDINP 01-26 05:09 → 2S 01-26 15:41

== ENCOUNTER 2025-02-18 19:48 | Inpatient (IN) ==
[2025-02-18] MEDS: ALBUT/IPRATROP 3MG/0.5MG NEB 3 ML VIAL NEB STA (20:12)
[2025-02-18 20:25] LABS: Base Excess VBG 5.3 mEq/L; HCO3 VBG 31 mmol/L; Oxygen Saturation VBG < 60.0 %; PCO2 VBG 49 mmHg (38-50); PO2 VBG < 20 mmHg; pH VBG 7.41 (7.36-7.41)
[2025-02-18 20:34] LABS: Hematocrit (blood only) 53.3 % (42.0-52.0); Hemoglobin 18.2 g/dl (14.0-18.0); Immature Granulocytes # (auto) 0.27 K/uL (0.01-0.20); Immature Granulocytes % (auto) 1.6 %; Mean Corpuscular Hemoglobin 32.8 pg (25.0-34.0); Mean Corpuscular Volume 96.0 fL (80.0-100.0); Platelet Count 281 K/uL (130-400); RDW Standard Deviation 53.1 fL (36.4-46.3); Red Blood Count 5.55 M/uL (4.70-6.10); White Blood Count 16.57 K/ul (4.8-10.8)
[2025-02-18] MEDS ORDERED: AZITHROMYCIN 250 MG TAB PO ONE (20:36)
[2025-02-18 20:53] LABS: Anion Gap 10.0 (3-11); Blood Urea Nitrogen 18.0 mg/dl (6-23); Calcium 9.2 mg/dl (8.6-10.3); Carbon Dioxide 28.0 mmol/L (21-32); Chloride 97.0 mmol/L (98-107); Creatinine Clr Calc Pharmacy 70.9 ml/min; Glucose 122.0 mg/dl (70-99(Fasting)); Potassium 3.4 mmol/L (3.5-5.1); Sodium 135.0 mmol/L (136-145)
[2025-02-18 21:13] LABS: INR 1.2 (0.9-1.1); Partial Thromboplastin Time 28 Seconds (21-31); Prothrombin Time 13.0 Seconds (9.0-12.0)
--- NOTE | 2025-02-18 21:19 | XRay Report ---
Exam(s): XR CXR 1 VIEW EXAM: XR Chest, 1 View CLINICAL HISTORY: sob. TECHNIQUE: Frontal view of the chest. COMPARISON: Chest two views 01/28/2023 FINDINGS: Lungs: Bibasilar subsegmental interstitial and airspace changes, right side greater than left. While there was some presumed chronic interstitial changes in the lower lung zones previously, both the interstitial and airspace changes appear markedly more prominent. Pleural space: The hemidiaphragms are maintained without pleural effusion or pneumothorax. Heart: Unremarkable. No cardiomegaly. Mediastinum: The mediastinal contours are unremarkable. The trachea is midline. Bones/joints: Unremarkable. No acute fracture. IMPRESSION: Bibasilar subsegmental interstitial and airspace changes, right side greater than left. While there was some presumed chronic interstitial changes in the lower lung zones previously, both the interstitial and airspace changes appear markedly more prominent. Favor bibasilar pneumonia over advancing scarring. There is preservation of the hemidiaphragms without pleural effusion or pneumothorax. Electronically signed by: Rodrigo London MD 02/18/25 21:18 PM
[2025-02-18 21:27] LABS: Chlamydia pneumoniae PCR Not Detected (NotDetected); Coronavirus 229E PCR Not Detected (NotDetected); Coronavirus CoV-2 (COVID19)PCR Not Detected (NotDetected); Coronavirus HKU1 PCR Not Detected (NotDetected); Coronavirus NL63 PCR Not Detected (NotDetected); Coronavirus OC43PCR Not Detected (NotDetected); Human Metapneumovirus PCR Not Detected (NotDetected); Parainfluenza Virus 1 PCR Not Detected (NotDetected); Parainfluenza Virus 2 PCR Not Detected (NotDetected); Parainfluenza Virus 3 PCR Not Detected (NotDetected); Parainfluenza Virus 4 PCR Not Detected (NotDetected); Respiratory Syncytial VirusPCR Not Detected (NotDetected); Rhinovirus/Enterovirus PCR Not Detected (NotDetected)
--- NOTE | 2025-02-18 21:29 | History & Physical Report ---
Date of Service February 18, 2025 Assessment & Plan (1) Chronic hypoxic respiratory failure: (2) COPD (chronic obstructive pulmonary disease): (3) Pulmonary fibrosis: (4) HTN (hypertension): Plan: HPI, ROS, PE, med rec completed by Alyssa Baer PA-C Assessment and Plan per Dr Mendes. See addendum. History of Present Illness Chief Complaint: SOB Primary Care Provider: Ck Palma MD Patient is 69-year-old male with PMH chronic interstitial lung disease with bilateral centrilobular emphysema, pulmonary fibrosis, bronchiectasis, chronic respiratory failure with hypoxia, on oxygen, HTN, HLD, pulmonary hypertension, MARÍA, GERD presented to ER with c/o SOB. Patient reports worsening SOB over past couple of weeks and general malaise. He reports uses 4L O2 HS and has portable oxygen concentrator uses with exertion set at 2L. He states recently has been needing to use portal concentrator continuous throughout the day however past several days still feeling SOB and having hypoxia so he has been using home oxygen concentrator during the day also. Takes O2 off to ambulate to bathroom and feels very SOB. He states has nonproductive cough, that sometimes has slight clear sputum production. This week feeling chilled. Hasn't recorded a fever. He states intermittent night sweats recently. States also has decreased appetite and decreased oral intake. Reports gradual weight loss over past several years since his pulmonary diagnosis. Denies V/D/C, MEEHAN, dizziness, syncope, vision changes, neck pain, CP, palpitations, hemoptysis, sore throat, otalgia, rhinorrhea, abdominal pain, paresthesias, weakness, extremity weakness, extremity edema, rashes, urinary symptoms. Per outpatient chart review seen at PCPs office on 12/22/2024 for persistent nonproductive cough and hypoxia. He was treated with Levaquin 500 mg daily x 10 days, and prednisone 10-day taper 12/22/2024 CXR: Reticular/hazy opacities, predominantly in the mid to lower lungs, compatible with chronic interstitial lung disease. No pleural effusion or pneumothorax. Stable cardiomediastinal silhouette. 02/03/2025 CT chest without contrast: Impression: 1. Slight progression diffuse innumerable large bilateral lung cysts most pronounced in the lung apices and areas of architectural distortion. Findings may reflect a combination of emphysema and interstitial lung disease. Kendra Vy José Miguel syndrome remains a differential consideration 2. Diffuse mosaic attenuation throughout the lungs consistent with airway trapping 3. dilated pulmonary tract measuring up to 3.6 cm 4. Ascending aortic astasia measuring 3.9 cm Allergies Allergy/AdvReac Type Severity Reaction Status Date / Time amoxicillin Allergy Unknown Hives Verified 02/18/25 20:20 Home Medications Medication Instructions Recorded Confirmed Type lisinopril 10 1 tab PO DAILY 01/26/23 02/18/25 History mg-hydrochlorothiazide 12.5 mg tablet umeclidinium 62.5 mcg-vilanterol 1 inh inhalation DAILY 01/26/23 02/18/25 History 25 mcg/actuation powdr for inhalation (Anoro Ellipta) aspirin 81 mg tablet,delayed 81 mg PO DAILY 02/18/25 02/18/25 History release Past Med/Surg History Problem List (Updated 02/18/25 @ 23:09 by wOen Estrella MD) Pneumonia (Acute) Chronic hypoxic respiratory failure Rectal bleeding Hypoxia (Acute) Elevated troponin (Acute) Acute GI bleeding (Acute) [id number] syndrome AVM (arteriovenous malformation) Pulmonary fibrosis COPD (chronic obstructive pulmonary disease) HTN (hypertension) Surgical History History of colonoscopy Family History Sister Breast cancer Mother Diabetes Social History Smoking Status: Former smoker Hx Alcohol Use: No Hx Substance Use: No Preferred Language: Malay Communication Ability: Effective Slasher Sawyer Required: No Beliefs That Will Affect Care: None Current Living Situation: Spouse Feels Safe at Home: Yes Assistive Devices: None Review of Systems Review of Systems: All systems reviewed & are unremarkable except as noted in HPI & below Physical Exam Physical Exam: General: no distress sitting upright in bed on oxymask 6L, chronic ill appearing Head: normocephalic, atraumatic Eyes: conjunctiva non-injected, anicteric ENT: normal inspection external ears, nose, mucous membranes moist Neck: supple, trachea midline, non-tender Lungs: no distress sitting upright in bed on oxymask 6L with O2 sat91%, +diminished breath sounds CV: RRR, no murmur, trace pretibial edema Abd: normal BS, soft, non-tender Ext: no cyanosis, no calf tenderness Neuro: A&O x 3, no focal deficits noted, normal affect Skin: warm, dry Results & Data Results & Data Vital Signs (Past 12 Hours) Vital Signs Temp Pulse Pulse Resp BP BP Pulse Ox 02/18/25 20:35 100 H 24 121/71 95 02/18/25 20:35 100 H 27 H 95 02/18/25 20:01 78 L 02/18/25 19:59 106 H 02/18/25 19:51 36.8 C 113 H 24 102/67 76 L O2 Del Method O2 Flow Rate 02/18/25 20:35 Oxymask 10 02/18/25 20:35 Oxymask 02/18/25 20:01 Oxymask 10 02/18/25 19:59 02/18/25 19:51 Nasal Cannula 4 Laboratory Results Short CBC 02/18/25 Range/Units 20:07 WBC 16.57 H (4.8-10.8) K/ul Hgb 18.2 H (14.0-18.0) g/dl Hct 53.3 H (42.0-52.0) % Plt Count 281 (130-400) K/uL BMP 02/18/25 20:07 Sodium 135 L Potassium 3.4 L Chloride 97 L Carbon Dioxide 28 BUN 18 Creatinine 1.03 Glucose 122 H Calcium 9.2 Diagnostic Findings Chest X-Ray 02/18/25 20:02 Exam(s): XR CXR 1 VIEW EXAM: XR Chest, 1 View CLINICAL HISTORY: sob. TECHNIQUE: Frontal view of the chest. COMPARISON: Chest two views 01/28/2023 FINDINGS: Lungs: Bibasilar subsegmental interstitial and airspace changes, right side greater than left. While there was some presumed chronic interstitial changes in the lower lung zones previously, both the interstitial and airspace changes appear markedly more prominent. Pleural space: The hemidiaphragms are maintained without pleural effusion or pneumothorax. Heart: Unremarkable. No cardiomegaly. Mediastinum: The mediastinal contours are unremarkable. The trachea is midline. Bones/joints: Unremarkable. No acute fracture. IMPRESSION: Bibasilar subsegmental interstitial and airspace changes, right side greater than left. While there was some presumed chronic interstitial changes in the lower lung zones previously, both the interstitial and airspace changes appear markedly more prominent. Favor bibasilar pneumonia over advancing scarring. There is preservation of the hemidiaphragms without pleural effusion or pneumothorax. Electronically signed by: Rodrigo London MD 02/18/25 21:18 PM Supervising Physician Co-Signing Physician Notes IM ATTENDING : Patient seen and examined. History obtained from patient and records. Concur with salient points upon review of preceding documentation by Ms. Alyssa Baer PA-C. In addition CT chest showed: 1. Accounting for limitations with diffuse extensive respiratory artifact, there is no large/central saddle pulmonary embolism. Most very distal subsegmental pulmonary artery segments are of very limited to nondiagnostic quality. No 3D or MIP imaging provided. 2. Advanced emphysema with architectural loss and extensive distortion with diffuse bullous disease, similar in morphologic appearance to the previous examination. However, there is abnormal fluid along the posteromedial aspect of the previously noted large conglomerate bulla in the right upper lobe, new from the previous examination. Favor acute infection within this region. 3. The cardiac chambers are prominent. There is asymmetric dilation of the right atrium and ventricle with mild reflux of contrast into the intrahepatic IVC. This is a nonspecific finding but suggests right heart strain. I take responsibility for plan of care below. FINAL ASSESSMENT AND PLAN as follows : Acute on chronic hypoxemic respiratory failure Underlying pulmonary hypertension Secondary to COPD exacerbation secondary to CAP Sepsis secondary to above Hypertension, stable AAA, stable measurement at 4.1 cm on outpatient imaging this year, [place] [facility] [place] Polycythemia secondary to chronic lung disease prediabetes, hemoglobin A1c of 6 from 2023 Past tobacco abuse Admit to med/tele Supplemental O2 CS, ceftriaxone doxycycline Nebs RTC, prednisone course Pulmonology consult if without improvement DVT prophylaxis. Lovenox subcu Full code I spent a total of 30 minutes coordinating, documenting, and providing care for this patientexcludingtime spent by another provider/QHP. Text document was generated using [employer] voice recognition software. It may contain grammatical or spelling errors. Kindly contact undersigned for clarification of any documentation item in question.
[2025-02-18] MEDS: DOXYCYCLINE HYCLATE 100 MG in DEXTROSE 5% MINI-B 100 ML IV STA (21:32)
[2025-02-18 21:45] LABS: Magnesium 2.1 mg/dl (1.7-2.4)
[2025-02-18] MEDS ORDERED: PROMETHAZINE 6.25 MG/50.25 ML BAG IV PRN (21:51)
[2025-02-18 22:09] LABS: Thyroid Stimulating Hormone 1.007 uIu/ml (0.300-4.500)
[2025-02-18] MEDS: NSS + 20MEQ KCL 20 MEQ/1,000 ML BAG IV ONE (22:21)
[2025-02-18] MEDS: POTASSIUM CHLORIDE PWD 20 MEQ PACK PO STA (22:28)
[2025-02-18] MEDS: guaiFENesin 600 MG TABCR PO SCH (22:28)
--- NOTE | 2025-02-18 22:52 | Emergency Department Note ---
History of Present Illness General Chief Complaint: Shortness of Breath/Dyspnea Stated Complaint: COPD, INTERSITTIAL LUNG DISEASE, LACK OF OXYGEN Time Seen by Provider: 02/18/25 19:57 History of Present Illness Provider Complaint: shortness of breath Onset (ago): week(s) (1) Consistency/Duration: + progressively worsening Relieved By: + oxygen and + rest Exacerbated By: + exertion and + coughing Known history of: COPD and other (Pulmonary fibrosis) Associated symptoms: + cough, + wheezing, + sputum production and + chest congestion; no hemoptysis HPI Narrative: Patient reports usually wears 2 L of oxygen however he has been going up to 5 L and his oxygen saturations have been running low and he is still been having difficulty breathing. Related Data Home oxygen amount: 2 liters Home Medications Medication Instructions Recorded Confirmed Type lisinopril 10 1 tab PO DAILY 01/26/23 02/18/25 History mg-hydrochlorothiazide 12.5 mg tablet umeclidinium 62.5 mcg-vilanterol 1 inh inhalation DAILY 01/26/23 02/18/25 History 25 mcg/actuation powdr for inhalation (Anoro Ellipta) aspirin 81 mg tablet,delayed 81 mg PO DAILY 02/18/25 02/18/25 History release Allergies Allergy/AdvReac Type Severity Reaction Status Date / Time amoxicillin Allergy Unknown Hives Verified 02/18/25 20:20 Past Med/Surg History Problem List (Updated 02/18/25 @ 23:09 by Owen Estrella MD) Pneumonia (Acute) Chronic hypoxic respiratory failure Rectal bleeding Hypoxia (Acute) Elevated troponin (Acute) Acute GI bleeding (Acute) Calw-Jzgp-Xjgj syndrome AVM (arteriovenous malformation) Pulmonary fibrosis COPD (chronic obstructive pulmonary disease) HTN (hypertension) Surgical History History of colonoscopy Family History Sister Breast cancer Mother Diabetes Social History Smoking Status: Former smoker Hx Alcohol Use: Yes Alcohol type: beer Hx Substance Use: No Preferred Language: Citizen Of [place] Communication Ability: Effective Proration Clerk Required: No Beliefs That Will Affect Care: None Current Living Situation: Spouse Feels Safe at Home: Yes Assistive Devices: None Physical Exam 2 Vital Signs: Vital Signs - 24 hr 02/18/25 19:51 02/18/25 19:59 02/18/25 20:01 Temperature 36.8 C Temperature Source Temporal Artery Sc an Pulse Rate 113 H 106 H Pulse Rate [Apical ] Pulse Rhythm [Apic al] Respiratory Rate 24 Respiratory Effort / Characteristics Non-Labored Sponta neous Respiratory Depth Normal Respiratory Patter n Regular Blood Pressure 102/67 Blood Pressure [Ri ght Arm] Blood Pressure Jenelle n 78 Blood Pressure Jenelle n [Right Arm] Pulse Oximetry 76 L 78 L Oxygen Delivery Me thod Nasal Cannula Oxymask Oxygen Flow Rate 4 10 Sepsis Recent Feve r Within 48 Hours No Sepsis New/Unexpla ined Change in Men marci Status N/A Sepsis Action Take n by Nursing Physician Notified Pulse Oximetry Pos t Tiitration 96 02/18/25 20:35 02/18/25 20:35 02/18/25 21:55 Temperature Temperature Source Pulse Rate 100 H Pulse Rate [Apical ] 100 H 92 H Pulse Rhythm [Apic al] Regular Respiratory Rate 27 H 24 27 H Respiratory Effort / Characteristics Spontaneous Non-Labored Sponta neous Respiratory Depth Normal Respiratory Patter n Regular Blood Pressure Blood Pressure [Ri ght Arm] 121/71 98/70 L Blood Pressure Jenelle n Blood Pressure Jenelle n [Right Arm] 87 79 Pulse Oximetry 95 95 93 Oxygen Delivery Me thod Oxymask Oxymask Oxymask Oxygen Flow Rate 10 6 Sepsis Recent Feve r Within 48 Hours Sepsis New/Unexpla ined Change in Men marci Status Sepsis Action Take n by Nursing Pulse Oximetry Pos t Tiitration 02/18/25 22:00 Temperature Temperature Source Pulse Rate Pulse Rate [Apical ] 90 Pulse Rhythm [Apic al] Regular Respiratory Rate 25 H Respiratory Effort / Characteristics Non-Labored Sponta neous Respiratory Depth Respiratory Patter n Blood Pressure Blood Pressure [Ri ght Arm] 116/74 Blood Pressure Jenelle n Blood Pressure Jenelle n [Right Arm] 88 Pulse Oximetry 92 Oxygen Delivery Me thod Oxymask Oxygen Flow Rate 6 Sepsis Recent Feve r Within 48 Hours Sepsis New/Unexpla ined Change in Men marci Status Sepsis Action Take n by Nursing Pulse Oximetry Pos t Tiitration Physical Exam: Physical Exam HENT: Exam performed. - Head: Normocephalic and atraumatic. EYES: Conjunctivae and EOM are normal. Right eye exhibits no discharge. Left eye exhibits no discharge. No scleral icterus. NECK: Normal range of motion. Neck supple. No JVD present. CV: Tachycardic rate, regular rhythm, normal heart sounds and intact distal pulses. There is no peripheral edema. Palpable radial pulses bue. PULM/CHEST: Rhonchi bilaterally. Diffuse expiratory wheezes. ABD: The abdomen is soft. There is no tenderness. NEURO: Motor and sensation grossly intact. SKIN: Skin is warm and dry. He is not diaphoretic. PSYCH: normal mood and affect. Behavior is normal. Judgment and thought content normal. Course Course 1956: The patient was evaluated in room A1. A complete history and physical exam was performed Cardiac monitoring: An order was placed for continuous cardiac monitoring. The monitor shows a rate of 100 with sinus rhythm interpreted by me Patient was hypoxic to 78% on baseline 2 L. Patient placed on Ventimask and oxygen saturation improved. 2044: Vital signs stable. Chest x-ray shows right-sided pneumonia. Patient will be treated with antibiotics for community-acquired pneumonia. Patient has allergy to amoxicillin and thus will be treated with Levaquin. 2100: Vital signs stable. Patient was able to be weaned down to 6 L oxygen. White blood cell count 16.7 lactic acid is unremarkable. VBG is unremarkable. Patient mated to [facility] hospitalist team. Administered Medications Guaifenesin (Guaifenesin 600 Mg Tabcr) 600 mg PO Q12 COLLIN Stop: 03/20/25 21:54 Last Admin: 02/18/25 22:28 Dose: 600 mg Documented By: JARRED Doxycycline Hyclate 100 mg/ (Dextrose) 100 mls @ 50 mls/hr IV NOW STA Stop: 02/18/25 23:12 Last Admin: 02/18/25 21:32 Dose: 50 mls/hr Documented By: LOUISE Potassium Chloride/Sodium Chloride (Normal Saline W/20 Meq Kcl) 20 meq in 1,000 mls @ 75 mls/hr IV .[id number] ONE Stop: 02/19/25 10:49 Last Admin: 02/18/25 22:21 Dose: 75 mls/hr Documented By: JARRED Discontinued Medications Albuterol (Albut/Ipratrop 3mg/0.5mg Neb 3 Ml Vial) 3 ml NEB NOW STA; Protocol Stop: 02/18/25 20:02 Last Admin: 02/18/25 20:12 Dose: 3 ml Documented By: ROB Levofloxacin/Dextrose (Levaquin/D5w) 750 mg in 150 mls @ 100 mls/hr IV NOW STA Stop: 02/18/25 22:07 Last Infusion: 02/18/25 22:18 Dose: Infused Documented By: Admin: 02/18/25 20:43 Dose: 100 mls/hr Documented By: ROB Ioversol (Optiray 320 125ml) 116 ml IV ONCE ONE Stop: 02/18/25 22:56 Last Admin: 02/18/25 22:55 Dose: 116 ml Documented By: EILEEN Methylprednisolone (Methylprednisolone 125 Mg/2 Ml Vial) 125 mg IV NOW STA Stop: 02/18/25 20:02 Last Admin: 02/18/25 20:09 Dose: 125 mg Documented By: ROB Potassium Chloride (Potassium Chloride Pwd 20 Meq Pack) 40 meq PO NOW STA Stop: 02/18/25 21:15 Last Admin: 02/18/25 22:28 Dose: 40 meq Documented By: JARRED Medical Decision Making Laboratory Data Attestation: I reviewed the patient's lab results. 02/18/25 20:07 02/18/25 20:07 Lab Results 02/18/25 02/18/25 02/18/25 Range/Units 20:07 20:08 20:38 WBC 16.57 H (4.8-10.8) K/ul RBC 5.55 (4.70-6.10) M/uL Hgb 18.2 H (14.0-18.0) g/dl Hct 53.3 H (42.0-52.0) % MCV 96.0 (80.0-100.0) fL MCH 32.8 (25.0-34.0) pg MCHC 34.1 (32.0-36.0) g/dL RDW Std Deviation 53.1 H (36.4-46.3) fL RDW Coeff of Nyasia 14.9 H (11.5-14.5) % Plt Count 281 (130-400) K/uL MPV 10.4 (9.4-12.4) fL Immature Gran % (Auto) 1.6 % Neut % (Auto) 75.4 % Lymph % (Auto) 12.7 % [place] % (Auto) 9.3 % Eos % (Auto) 0.5 % Baso % (Auto) 0.5 % Neut # (Auto) 12.48 H (1.40-6.50) K/uL Lymph # (Auto) 2.11 (1.20-3.40) K/uL [place] # (Auto) 1.54 H (0.11-0.59) K/uL Eos # (Auto) 0.08 (0.00-0.50) K/uL Baso # (Auto) 0.09 (0.00-0.20) K/uL Immature Gran # (Auto) 0.27 H (0.01-0.20) K/uL PT 13.0 H (9.0-12.0) Seconds INR 1.2 H (0.9-1.1) APTT 28 (21-31) Seconds PTT Ratio 1.0 VBG pH 7.41 (7.36-7.41) VBG pCO2 49 (38-50) mmHg VBG pO2 < 20 mmHg VBG HCO3 31 mmol/L VBG O2 Saturation < 60.0 % VBG Base Excess 5.3 mEq/L Sodium 135 L (136-145) mmol/L Potassium 3.4 L (3.5-5.1) mmol/L Chloride 97 L (98-107) mmol/L Carbon Dioxide 28 (21-32) mmol/L Anion Gap 10 (3-11) BUN 18 (6-23) mg/dl Creatinine 1.03 (0.6-1.4) mg/dl Est Cr Clr Drug Dosing 70.9 ml/min eGFR 77.66 BUN/Creatinine Ratio 17.5 (10-20) Glucose 122 H (70-99(Fasting)) mg/dl Lactate 1.5 (0.4-2.0) mmol/L Calcium 9.2 (8.6-10.3) mg/dl Magnesium 2.1 (1.7-2.4) mg/dl Troponin I High Sens 9.6 (0-20) pg/ml B-Natriuretic Peptide 41 (0-100) pg/ml TSH 1.007 (0.300-4.500) uIu/ml Adenovirus (PCR) Not Detected (NotDetected) B. pertussis DNA (PCR) Not Detected (NotDetected) B.parapertussis DNA PCR Not Detected (NotDetected) C. pneumoniae DNA (PCR) Not Detected (NotDetected) Coronavirus OC43 (PCR) Not Detected (NotDetected) Coronavirus HKU1 (PCR) Not Detected (NotDetected) Coronavirus 229E (PCR) Not Detected (NotDetected) SARS-CoV-2 (PCR) Not Detected (NotDetected) Coronavirus NL63 (PCR) Not Detected (NotDetected) Human Metapneumovir PCR Not Detected (NotDetected) Influenza Type A (PCR) Not Detected (NotDetected) Influenza Type B (PCR) Not Detected (NotDetected) M. pneumoniae (PCR) Not Detected (NotDetected) Parainfluenza 1 (PCR) Not Detected (NotDetected) Parainfluenza 2 (PCR) Not Detected (NotDetected) Parainfluenza 3 (PCR) Not Detected (NotDetected) Parainfluenza 4 (PCR) Not Detected (NotDetected) RSV (PCR) Not Detected (NotDetected) Entero/Rhino (PCR) Not Detected (NotDetected) Imaging Data Attestation: I personally reviewed and interpreted this imaging study as follows: My Impression: Chest x-ray: Right-sided pneumonia Radiologist's Impression: Chest X-Ray 02/18/25 20:02 Exam(s): XR CXR 1 VIEW EXAM: XR Chest, 1 View CLINICAL HISTORY: sob. TECHNIQUE: Frontal view of the chest. COMPARISON: Chest two views 01/28/2023 FINDINGS: Lungs: Bibasilar subsegmental interstitial and airspace changes, right side greater than left. While there was some presumed chronic interstitial changes in the lower lung zones previously, both the interstitial and airspace changes appear markedly more prominent. Pleural space: The hemidiaphragms are maintained without pleural effusion or pneumothorax. Heart: Unremarkable. No cardiomegaly. Mediastinum: The mediastinal contours are unremarkable. The trachea is midline. Bones/joints: Unremarkable. No acute fracture. IMPRESSION: Bibasilar subsegmental interstitial and airspace changes, right side greater than left. While there was some presumed chronic interstitial changes in the lower lung zones previously, both the interstitial and airspace changes appear markedly more prominent. Favor bibasilar pneumonia over advancing scarring. There is preservation of the hemidiaphragms without pleural effusion or pneumothorax. Electronically signed by: Rodrigo London MD 02/18/25 21:18 PM ECG Data Attestation: I personally reviewed and interpreted this ECG as follows: Interpretation: Sinus rhythm with a rate of 100. [place] QRS and QTc intervals within normal limits. No ST elevation or ST depression. [facility] Narrative 1956: The patient was evaluated in room A1. A complete history and physical exam was performed Cardiac monitoring: An order was placed for continuous cardiac monitoring. The monitor shows a rate of 100 with sinus rhythm interpreted by me Patient was hypoxic to 78% on baseline 2 L. Patient placed on Ventimask and oxygen saturation improved. 2044: Vital signs stable. Chest x-ray shows right-sided pneumonia. Patient will be treated with antibiotics for community-acquired pneumonia. Patient has allergy to amoxicillin and thus will be treated with Levaquin. 2099: Vital signs stable. Patient was able to be weaned down to 6 L oxygen. White blood cell count 16.7 lactic acid is unremarkable. VBG is unremarkable. [facility] Impression & Plan Pneumonia Discharge Plan Visit Data Chief Complaint: Shortness of Breath/Dyspnea Stated Complaint: COPD, INTERSITTIAL LUNG DISEASE, LACK OF OXYGEN ED Provider: Owen Estrella Discharge Problem: Pneumonia Patient Disposition: Admitted As Inpatient Condition: Fair Forms Stand Alone Forms: My [facility] Prescriptions Prescriptions: No Action lisinopril-hydrochlorothiazide 10-12.5 mg tablet 1 tab PO DAILY umeclidinium-vilanterol [Anoro Ellipta] 62.5-25 mcg/actuation blister with device 1 inh INHALATION DAILY aspirin [Aspirin Low-Strength] 81 mg Tablet,Delayed Release (Dr/Ec) 81 mg PO DAILY Referrals Referrals: Ck Palma MD [Primary Care Provider] - Discharge Problem: Pneumonia Qualifiers: Pneumonia type: due to unspecified organism Laterality: right Lung location: u nspecified part of lung Qualified Code(s): J18.9 - Pneumonia, unspecified organism
[2025-02-18] MEDS: OPTIRAY 320 125ml IV ONE (22:55)
--- NOTE | 2025-02-19 00:05 | CT Scan Report ---
Exam(s): CTA CHEST IV Amt: 116ml EXAM: CT Chest With Intravenous Contrast CLINICAL HISTORY: sob. TECHNIQUE: Axial computed tomographic images of the chest with intravenous contrast. CTDI is 27.25 mGy and DLP is 936.47 mGy-cm. Automated exposure control was utilized for the study. A dose lowering technique was utilized adhering to the principles of ALARA. COMPARISON: No relevant prior studies available. FINDINGS: Limitations: There is diffuse respiratory artifact, which degrades image quality throughout the examination. Pulmonary arteries: Accounting for limitations with diffuse extensive respiratory artifact, there is no large/central saddle pulmonary embolism. Most very distal subsegmental pulmonary artery segments are of very limited to nondiagnostic quality. Aorta: No acute findings. No thoracic aortic aneurysm. Lungs: Advanced emphysema with architectural loss and extensive distortion with diffuse bullous disease, similar in morphologic appearance to the previous examination. However, there is abnormal fluid along the posteromedial aspect of the previously noted large conglomerate bulla in the right upper lobe, new from the previous examination. Increased attenuation of the lower lobes with similar honeycombing. Suspect basilar atelectasis. Pleural space: Unremarkable. No significant effusion. No pneumothorax. Heart: The cardiac chambers are prominent. There is asymmetric dilation of the right atrium and ventricle with mild reflux of contrast into the intrahepatic IVC. Prominent coronary artery calcification. Bones/joints: No acute fracture. No dislocation. Soft tissues: Unremarkable. Lymph nodes: Diffuse paratracheal and precarinal lymph nodes, predominantly subcentimeter in size. However, there is a prominent lymph node anterior to the right proximal mainstem bronchus measuring 14 mm. IMPRESSION: 1. Accounting for limitations with diffuse extensive respiratory artifact, there is no large/central saddle pulmonary embolism. Most very distal subsegmental pulmonary artery segments are of very limited to nondiagnostic quality. No 3D or MIP imaging provided. 2. Advanced emphysema with architectural loss and extensive distortion with diffuse bullous disease, similar in morphologic appearance to the previous examination. However, there is abnormal fluid along the posteromedial aspect of the previously noted large conglomerate bulla in the right upper lobe, new from the previous examination. Favor acute infection within this region. 3. The cardiac chambers are prominent. There is asymmetric dilation of the right atrium and ventricle with mild reflux of contrast into the intrahepatic IVC. This is a nonspecific finding but suggests right heart strain. Electronically signed by: Rodrigo London MD 02/19/25 00:05 AM
[2025-02-19] MEDS: LEVALBUTEROL 1.25 MG/3 ML NEB NEB SCH (01:41)
[2025-02-19] MEDS: IPRATROPIUM BROMIDE NEB SOLN 0.02% 0.5MG/2.5ML VIAL INH SCH (01:41)
[2025-02-19 08:09] LABS: Hematocrit (blood only) 50.5 % (42.0-52.0); Hemoglobin 17.2 g/dl (14.0-18.0); Immature Granulocytes # (auto) 0.23 K/uL (0.01-0.20); Immature Granulocytes % (auto) 1.9 %; Mean Corpuscular Hemoglobin 33.3 pg (25.0-34.0); Mean Corpuscular Volume 97.9 fL (80.0-100.0); Platelet Count 251 K/uL (130-400); RDW Standard Deviation 52.1 fL (36.4-46.3); Red Blood Count 5.16 M/uL (4.70-6.10); White Blood Count 12.25 K/ul (4.8-10.8)
[2025-02-19 08:37] LABS: Anion Gap 10.0 (3-11); Blood Urea Nitrogen 17.0 mg/dl (6-23); Calcium 9.1 mg/dl (8.6-10.3); Carbon Dioxide 26.0 mmol/L (21-32); Chloride 102.0 mmol/L (98-107); Creatinine Clr Calc Pharmacy 90.4 ml/min; Glucose 180.0 mg/dl (70-99(Fasting)); Potassium 3.7 mmol/L (3.5-5.1); Sodium 138.0 mmol/L (136-145)
[2025-02-19] MEDS: ASPIRIN 81 MG ECTAB PO SCH (08:39)
[2025-02-19] MEDS: DOXYCYCLINE HYCLATE 100 MG CAP PO SCH (08:40)
[2025-02-19] MEDS: ENOXAPARIN INJ 40 MG/0.4 ML SYR SQ SCH (08:40)
[2025-02-19] MEDS: predniSONE 20 MG TAB PO SCH (08:41)
--- NOTE | 2025-02-19 10:52 | Electrocardiogram Report ---
Test Reason : Blood Pressure : */* mmHG Vent. Rate : 100 BPM Atrial Rate : 100 BPM P-R Int : 158 ms QRS Dur : 96 ms QT Int : 376 ms P-R-T Axes : 36 43 9 degrees QTcB Int : 485 ms Normal sinus rhythm Inferior infarct , age undetermined Abnormal ECG When compared with ECG of 29-Jan-2023 10:50, Nonspecific T wave abnormality now evident in Anterior leads Confirmed by Dharmesh Magana ([id number]) on 02/19/2025 10:52:15 AM Referred By: REFERRED SELF Confirmed By: Dharmesh Magana
--- NOTE | 2025-02-19 11:22 | Hospitalist Progress Note ---
Date of Service February 19, 2025 Assessment & Plan (1) Chronic hypoxic respiratory failure: (2) COPD (chronic obstructive pulmonary disease): (3) Pulmonary fibrosis: (4) HTN (hypertension): Plan Mr. Watson is a 69 year old gentleman with history of former tobacco use, MARÍA, HLD, HTN, GERD, chronic interstitial lung disease, bilateral centrilobular emphysema, chronic hypoic respiratory failure 2/2 pulmonary fibrosis & bronchiectasis who is admitted for acute on chronic hypoxia iso COPD exacerbation IMPRESSION1. Slight progression diffuse innumerable large bilateral lung cysts most pronounced in the lung apices and areas of architectural distortion. Findings may reflect a combination of emphysema and interstitial lung disease. Vinny Vy José Miguel syndrome remains a differential consideration.2. Diffuse mosaic attenuation throughout the lungs consistent with airway trapping.3. Dilated pulmonary trunk measuring up to 3.6 centimeters.4. Ascending aortic ectasia measuring 3.[address] chest results will be discussed with patient at follow-up 6 minute walk test 02/03/2025 showed res ting and exertional hypoxia. Patient had 85% oxygen saturation on room air at rest, required 3 LPM oxygen at rest to maintain oxygen saturation above 90%. Patient required 6 LPM oxygen during ambulation to maintain oxygen saturation above 90%.New prescription for 3 LPM oxygen at rest and 6 LPM oxygen with activity with POC being ordered. Please notify patient regarding oxygen prescription being sent to DME and ensure processing. #Acute on chronic hypoxic respiratory failure #Combined pulmonary fibrosis and emphysema #Nocturnal hypoxia reports only requiring O2 on exertion, however, it appears as of today in EMR oxygen just increased to above CT imaging from December revealed progression of bilateral lungs cysts Continue 4 L oxygen with sleep Continue Anoro daily Add Pulmicort and Perforomist bid Xopenex and ipratropium q6r transition Solumedrol 40mg q 12 hours Recent 6MWT: 3L at rest, 6L on ambulation continue doxy bid procal 0.24--suspect exacerbation 2/2 nontherapeutic O2 script continue Mucinex o2 goal 88-90% #HTN continue lisinopril #Hyponatremia hold hctz, resolved at this time would consider d/c thiazide given history of #AAA follows Vascular continue ASA dvt ppx lovenox likely 1-2 days PCP [facility] Admission and Anticipated Discharge Date Admission Date: February 18, 2025 Subjective Reports subjective improvement states that he feels able to inhale and exhale a bit easier denies any chest pain, wheezing, chest tightness or other acute concerns on oxymask at 6 L this am Physical Exam Constitutional: WD/WN, vitals as above Respiratory: diminished peripheral breath sounds, no wheezing or rhonchi, prolonged expiration Cardiovascular: RRR, no murmur, no edema Gastrointestinal (Abdomen): normal bowel sounds, soft, nontender, no hepatosplenomegaly Results & Data Results & Data Vital Signs (Past 12 Hours) Vital Signs Temp Pulse Pulse Resp BP Pulse Ox Pulse Ox 02/19/25 07:33 02/19/25 07:33 36.4 C L 76 28 H 115/78 94 02/19/25 07:33 94 02/19/25 06:47 74 20 94 02/19/25 06:00 72 14 111/73 92 02/19/25 05:00 68 16 100/61 91 02/19/25 04:28 02/19/25 03:00 72 16 104/72 91 02/19/25 03:00 72 16 91 02/19/25 02:24 73 16 106/69 91 02/19/25 02:00 74 16 106/69 91 02/19/25 01:41 68 18 94 02/19/25 00:00 73 16 104/54 L 93 02/18/25 23:46 81 O2 Del Method O2 Del Method O2 Flow Rate O2 Flow Rate 02/19/25 07:33 Nasal Cannula 02/19/25 07:33 Nasal Cannula 4 02/19/25 07:33 Nasal Cannula 4 02/19/25 06:47 Oxymask 6 02/19/25 06:00 Oxymask 6 02/19/25 05:00 Oxymask 6 02/19/25 04:28 Oxymask 6 02/19/25 03:00 Oxymask 6 02/19/25 03:00 Oxymask 6 02/19/25 02:24 Oxymask 6 02/19/25 02:00 Oxymask 6 02/19/25 01:41 Oxymask 6 02/19/25 00:00 Oxymask 6 02/18/25 23:46 Laboratory Results Short CBC 02/18/25 02/19/25 Range/Units 20:07 07:30 WBC 16.57 H 12.25 H (4.8-10.8) K/ul Hgb 18.2 H 17.2 (14.0-18.0) g/dl Hct 53.3 H 50.5 (42.0-52.0) % Plt Count 281 251 (130-400) K/uL BMP 02/18/25 02/19/25 20:07 07:30 Sodium 135 L 138 Potassium 3.4 L 3.7 Chloride 97 L 102 Carbon Dioxide 28 26 BUN 18 17 Creatinine 1.03 0.83 Glucose 122 H 180 H Calcium 9.2 9.1 Medications Administered Home Medications Medication Instructions Recorded Confirmed Last Taken lisinopril 10 1 tab PO DAILY 01/26/23 02/18/25 Unknown mg-hydrochlorothiazide 12.5 mg tablet umeclidinium 62.5 mcg-vilanterol 1 inh inhalation DAILY 01/26/23 02/18/25 Unknown 25 mcg/actuation powdr for inhalation (Anoro Ellipta) aspirin 81 mg tablet,delayed 81 mg PO DAILY 02/18/25 02/18/25 Unknown release Active Medications Generic Name Dose Route Start Last Admin Trade Name Tabq PRN Reason Stop Dose Admin Aspirin 81 mg 02/19/25 09:00 02/19/25 08:39 Aspirin 81 Mg Ectab PO 03/21/25 08:59 81 mg DAILY COLLIN Administration Doxycycline Hyclate 100 mg 02/19/25 09:00 02/19/25 08:40 Doxycycline Hyclate 100 Mg Cap PO 02/24/25 08:59 100 mg BID COLLIN Administration Enoxaparin Sodium 40 mg 02/19/25 09:00 02/19/25 08:40 Enoxaparin Inj 40 Mg/0.4 Ml Syr SQ 03/21/25 08:59 40 mg QAM COLLIN Administration Guaifenesin 600 mg 02/18/25 21:55 02/19/25 08:40 Guaifenesin 600 Mg Tabcr PO 03/20/25 21:54 600 mg Q12 COLLIN Administration Ipratropium [place] 0.5 mg 02/19/25 01:00 02/19/25 06:47 Ipratropium [place] Neb Soln 0.02% 0.5mg/2.5ml Vial INH 03/21/25 00:59 0.5 mg Q6R COLLIN Administration Levalbuterol HCl 1.25 mg 02/19/25 01:00 02/19/25 06:47 Levalbuterol 1.25 Mg/3 Ml Neb NEB 03/21/25 00:59 1.25 mg Q6R COLLIN Administration Lisinopril 10 mg 02/19/25 09:00 02/19/25 08:40 Lisinopril 10 Mg Tab PO 03/21/25 08:59 10 mg QAM COLLIN Administration
[2025-02-19 14:39] LABS: A calco-baum cmplx NotReported Not Detected (NotDetected); Bact fragilis Not Reported Not Detected (NotDetected); Blood Culture Id Panel See PCR Comment (NotDetected); C auris Not Reported Not Detected (NotDetected); Calbicans Not Reported Not Detected (NotDetected); Candida glabrata Not Reported Not Detected (NotDetected); Candida krusei Not Reported Not Detected (NotDetected); Cneoformans/gatti Not Reported Not Detected (NotDetected); Cparapsilosis Not Reported Not Detected (NotDetected); Ctropicalis Not Reported Not Detected (NotDetected); E cloacae compx Not Reported Not Detected (NotDetected); Efaecalis Not Reported Not Detected (NotDetected); Efaecium Not Reported Not Detected (NotDetected); Enterobacterales Not Reported Not Detected (NotDetected); Escherichia coli Not Reported Not Detected (NotDetected); H influenzae Not Reported Not Detected (NotDetected); K aerogenes Not Reported Not Detected (NotDetected); Koxytoca Not Reported Not Detected (NotDetected); Kpneumoniae grp Not Reported Not Detected (NotDetected); Lmonocyt Not Reported Not Detected (NotDetected); N meningitidis Not Reported Not Detected (NotDetected); P aeruginosa Not Reported Not Detected (NotDetected); Proteus spp Not Reported Not Detected (NotDetected); Salmonella spp Not Reported Not Detected (NotDetected); Staph lugdunensis Not Reported Not Detected (NotDetected); Staph spp. Not Reported DETECTED (NotDetected); Staphaureus Not Reported Not Detected (NotDetected); Staphepi Not Reported Not Detected (NotDetected); Stenmaltophilia Not Reported Not Detected (NotDetected); Strep agal(GrpB) Not Reported Not Detected (NotDetected); Strep pneum Not Reported Not Detected (NotDetected); Strep pyog (GrpA) Not Reported Not Detected (NotDetected); Strep spp Not Reported Not Detected (NotDetected)
[2025-02-19 15:08] LABS: Staphylococcus spp. DETECTED (NotDetected)
[2025-02-19] MEDS: BUDESONIDE 0.5 MG/2 ML VIAL (PULMICORT) NEB SCH (19:22)
[2025-02-19] MEDS: FORMOTEROL 20 MCG/2 ML VIAL NEB SCH (19:23)
[2025-02-19] MEDS ORDERED: cefTRIAXone SODIUM 2,000 MG/50 ML BAG IV SCH (20:00)
[2025-02-20 06:42] LABS: Anion Gap 7.0 (3-11); Blood Urea Nitrogen 19.0 mg/dl (6-23); Calcium 9.1 mg/dl (8.6-10.3); Carbon Dioxide 24.0 mmol/L (21-32); Chloride 108.0 mmol/L (98-107); Creatinine Clr Calc Pharmacy 91.5 ml/min; Glucose 167.0 mg/dl (70-99(Fasting)); Magnesium 2.2 mg/dl (1.7-2.4); Potassium 4.3 mmol/L (3.5-5.1); Sodium 139.0 mmol/L (136-145)
[2025-02-20 06:51] LABS: Hematocrit (blood only) 47.6 % (42.0-52.0); Hemoglobin 16.4 g/dl (14.0-18.0); Mean Corpuscular Hemoglobin 33.3 pg (25.0-34.0); Mean Corpuscular Volume 96.7 fL (80.0-100.0); Platelet Count 283 K/uL (130-400); RDW Standard Deviation 50.2 fL (36.4-46.3); Red Blood Count 4.92 M/uL (4.70-6.10); White Blood Count 20.93 K/ul (4.8-10.8)
[2025-02-20] MEDS ORDERED: LEVALBUTEROL 1.25 MG/3 ML NEB NEB PRN (10:58)
[2025-02-20] MEDS ORDERED: IPRATROPIUM BROMIDE NEB SOLN 0.02% 0.5MG/2.5ML VIAL INH PRN (11:08)
--- NOTE | 2025-02-20 11:15 | Pulmonary Consultation ---
Date of Consultation February 20, 2025 Assessment & Plan (1) Pneumonia: Laterality: right Lung location: unspecified part of lung P neumonia type: due to unspecified organism Qualified Code(s): J18.9 - Pneumonia, unspecified organism (2) Chronic hypoxic respiratory failure: (3) Hypoxia: (4) COPD (chronic obstructive pulmonary disease): (5) Pulmonary fibrosis: (6) Pulmonary hypertension: Plan Juliano Watson is a 69-year-old male with past medical history of ILD, pulmonary fibrosis, bronchiectasis, chronic hypoxic respiratory failure was on 2L with exertion and 4L at night, HTN, HLD, MARÍA, pulmonary hypertension, and GERD; who presented to [facility] on 02/18/2025 with worsening shortness of breath. COPD; emphysema; bronchiectasis -Patient currently does not appear bronchospastic. -D/C steroids. -Change doxycycline to Leavquin. -D/C formoterol and budesonide nebs. -Will schedule duonebs q6hR for improved administration in setting of SOB. Patient is on Anoro Ellipta at home daily. -Increase Mucinex to 1200mg bid -Start 7% nebs bid and flutter valve for airway clearance. ILD; pulmonary fibrosis -Unclear exact etiology or subtype -Does not appear to be acute exacerbation of ILD based on radiographic review. Pulmonary hypertension likely WHO class III -Last TTE in [facility] 2022 with normal LV size with mild hypertrophy. LV wall motion normal. EF 60-65%. Grade I diastolic dysfunction. RV normal size and function. -There is CT contrast regurgitation into RV concerning for pulmonary HTN. No PE noted. -Consider repeating TTE -maintain SpO2 > 90%. Currently on 5L at rest. -Recent walk test at [facility] showed O2 requirement of 6L NC at rest and 8L with exertion. Acute on chronic hypoxic respiratory failure likely multifactorial -maintain SpO2 > 90%. Currently on 5L at rest. -Recent walk test at [facility] showed O2 requirement of 6L NC at rest and 8L with exertion. -Has [employer] portable pulse oxygen concentrator and standard concentrator at home. Will work with care management for high capacity concentrator for discharge. Probable pneumonia failed outpatient treatment -CT chest shows abnormal fluid along the posteromedial aspect of the previously noted large conglomerate bulla in the right upper lobe concerning for pneumonia. -Complete AZT 5 day course and a reported doxycycline 10 day course in last 3 weeks with minimal improvement. -Sputum culture ordered. -Will change doxycycline to Levaquin 750mg daily for 7 days. -Patient is at high risk for multi drug resistant or opportunistic infection Recommend follow up with Dr. Jack patient's primary weight training instructor upon discharge. Discussed role of palliative care given his level of symptom and disease burden. Patient is interested but would like to talk to Dr. Jack first. Thank you for allowing us to participate in you care. Please feel free to call with questions or concerns. I spent 58 minutes reviewing the chart, obtaining history, performing physical exam, updating the patient and family, and discussing and coordinating the plan with the interdisciplinary team and bedside nurse. Supervising Physician Co-Signing Physician Notes Patient seen and examined. EMR reviewed. Images were independently reviewed. The patient has advanced cystic lung disease. There are areas of airspace opacity concerning for infectious etiology. He is already completed several courses of antibiotics. Given his structural lung disease, would recommend antipseudomonal coverage. Will discontinue current antibiotics and placed on ivis quinolone. Anticipate 10 to 14 days of therapy. Would not consider bronchoscopy now but if he fails to improve, that may be appropriate to obtain lower respiratory cultures in the future. Would need to also exclude nontuberculous mycobacterial infection. He is not bronchospastic currently so I think holding steroids is reasonable. Continue nebulized bronchodilators. Patient has multifactorial hypoxemia. His hypercarbia is contributing. May need to address for AVAPS in the outpatient setting with his primary weight training instructor. He appears to be approaching his baseline oxygen requirement. Will have respiratory therapy and case management assist to see whether or not he can get a high capacity oxygen concentrator at home as his current concentrator goes only to 6 L/min. In addition I advised him that his current portable oxygen concentrator is likely inadequate to meet his oxygen requirement needs and he will require tanks moving forward. The patient reports he has follow-up scheduled with his outpatient weight training instructor next week and wants to be dismissed over the weekend. Advised him that we need to get his oxygen requirements met prior to consider discharge. He expressed understanding and is in agreement with the plan as outlined History of Present Illness Reason for Consultation: Acute on chronic hypoxic respiratory failure Attending Physician: Jose Lake MD History of Present Illness Juliano Watson is a 69-year-old male with past medical history of ILD, pulmonary fibrosis, bronchiectasis, chronic hypoxic respiratory failure was on 2L with exertion and 4L at night, HTN, HLD, MARÍA, pulmonary hypertension, and GERD; who presented to [facility] on 02/18/2025 with worsening shortness of breath. Per the patient his symptoms started 3 weeks ago after he was camping and he developed sinus congestion and post nasal drip. The patient called his weight training instructor Dr. Jack with [facility] and given a rescue pack which did not improve his symptoms. He notes that his shortness of breath continued to get worse and he was ordered a CT chest and oxygen walk test which was performed a week ago with plan for pulmonary follow up on 02/23/2025. Per report the oxygen walk showed his O2 requirements went to 6L at rest and 8L with exertion to maintain SpO2 > 88%. The patient continued with SOB and was unable to maintain SpO2 above 88% prompting him to come to [facility] ED on 02/18/2025. In the ED a CXR showed reticular hazy opacities in the bilateral lower lobes. CTA showed no PE, extensive fibrotic and emphysematous changes with bullae, and contrast reflux consistent with pulmonary hypertension. Patient had blood cultures drawn with have grown gram + cocci in clusters one set which has speciated to staph epidermidis and staph hominis. Patient was started on cefazolin for bacteremia and doxycycline for CAP. Patient was admitted to the Hospitalist service and pulmonary was consulted for evaluation and management of acute on chronic hypoxic respiratory failure and shortness of breath in setting of ILD and emphysema. Patient denies fevers and chills recently. Does endorse night sweats the past 2 weeks. He denies hemoptysis. His cough is usually nonproductive but occasionally he produces white phlegm. He feels as though he has difficulty clearing secretions with coughing. Denies leg swelling. BNP 41. He is a former smoker with 40 pack year history who quit in 2008. has required multiple courses of steroid and azithromycin in the past year. Oxygen dependent for last 2 years with 2L with exertion and 4L at night. This has increased to 4L continuously int he last 3 weeks and recent oxygen walk last week at [facility] reportedly showed 6 liters at rest with 8 liters on exertion. Uses Anoro Ellipta daily and is compliant. 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 he states that he was usually good about wearing a respirator. Allergies Allergy/AdvReac Type Severity Reaction Status Date / Time amoxicillin Allergy Unknown Hives Verified 02/18/25 20:20 Home Medications Medication Instructions Recorded Confirmed Type lisinopril 10 1 tab PO DAILY 01/26/23 02/18/25 History mg-hydrochlorothiazide 12.5 mg tablet umeclidinium 62.5 mcg-vilanterol 1 inh inhalation DAILY 01/26/23 02/18/25 History 25 mcg/actuation powdr for inhalation (Anoro Ellipta) aspirin 81 mg tablet,delayed 81 mg PO DAILY 02/18/25 02/18/25 History release Patient History Surgical History History of colonoscopy Family History Sister Breast cancer Mother Diabetes Social History Smoking Status: Former smoker Hx Alcohol Use: No Hx Substance Use: No Preferred Language: Occitan Communication Ability: Effective Irrigationist Required: No Beliefs That Will Affect Care: None Current Living Situation: Spouse Feels Safe at Home: Yes Assistive Devices: Cane and Oxygen - Continuous Review of Systems 2 Review of Systems: All systems reviewed & are unremarkable except as noted in HPI & below Physical Exam 2 Physical Exam: VITALS: Reviewed. WEIGHT/BMI reviewed. GEN: Stated age appearing, well-developed, NAD. PSYCH: Good Judgment. AOx3. Normal memory, mood, and affect. HEENT -Head: NC/AT; -Eyes: PERRL, EOMI. No discharge or redn ess; -Ears: External ears are normal. -Nose: Normal nares. NECK: Supple, with no masses. CV: RRR, no m/r/g. LUNGS: Clear in upper lobes, fine crackles in bilateral bases. Non bronchospastic. Chest rise symmetrical. Breathing mildly labored. ABD: N/A : N/A SKIN: Warm, well perfused. No skin rashes or abnormal lesions. MSK: No deformities, Normal gait. EXT: No clubbing, cyanosis, or edema. NEURO: Ambulating with no limitations. Normal muscle strength and tone. No focal deficits. Results & Data Results & Data Vital Signs (Past 12 Hours) Vital Signs Temp Pulse Pulse Resp BP Pulse Ox O2 Del Method 02/20/25 08:20 95 Nasal Cannula 02/20/25 08:20 High Flow Nasal Cannula 02/20/25 07:52 36.4 C L 82 18 111/73 95 High Flow Nasal Cannula 02/20/25 07:04 83 16 93 Nasal Cannula 02/20/25 06:45 75 02/20/25 03:46 36.4 C L 79 18 103/68 92 Nasal Cannula 02/20/25 00:01 77 18 93 Nasal Cannula O2 Flow Rate 02/20/25 08:20 6 02/20/25 08:20 6 02/20/25 07:52 7 02/20/25 07:04 6 02/20/25 06:45 02/20/25 03:46 7 02/20/25 00:01 7 Laboratory Results 02/20/25 05:33 02/20/25 05:33 Abnormal Lab Results 02/18/25 02/20/25 20:38 05:33 WBC 20.93 H D RBC 4.92 Hgb 16.4 Hct 47.6 MCV 96.7 MCH 33.3 MCHC 34.5 RDW Std Deviation 50.2 H RDW Coeff of Nyasia 13.9 Plt Count 283 MPV 10.7 Sodium 139 Potassium 4.3 Chloride 108 H Carbon Dioxide 24 Anion Gap 7 BUN 19 Creatinine 0.82 Est Cr Clr Drug Dosing 91.5 eGFR 93.91 BUN/Creatinine Ratio 23.2 H Glucose 167 H Calcium 9.1 Phosphorus 3.9 Magnesium 2.2 Staphylococcus sp PCR DETECTED A Bld Cult ID Panel PCR See PCR Comment Diagnostic Findings No recent imaging. PG Care Time/CCT Total # of Minutes Spent Total Time Spent with Patient: Total time spent is greater than 50% in coordination of care (as documented) at patient's floor/unit and/or counseling patient: Coding Level of Care Code 12455 INT INP/OBS CARE 255MIN Diagnoses Pneumonia J18.9 Laterality: right Lung location: unspecified part of lung Pneumonia type: due to unspecified organism Chronic hypoxic respiratory failure J96.11 Hypoxia R09.02 COPD (chronic obstructive pulmonary disease) J44.9 Pulmonary fibrosis J84.10 Pulmonary hypertension I27.20
[2025-02-20] MEDS: SODIUM CHLOR 7% 4 ML NEB NEB SCH (11:21)
--- NOTE | 2025-02-20 12:24 | Infectious Disease Consult ---
Date of Service February 20, 2025 Telehealth Information I performed this visit using a real-time telehealth connection between my location and the patients location ([facility]). After connecting through interactive tele-video, patient was identified by name and date of and/or wristband check.Patient (or authorized healthcare software sales representative) was informed that this was a telemedicine visit and it was being conducted confidentially over secure lines. My office door was closed and no o ne else was present in the room with me.Patient (or authorized healthcare software sales representative) provided consent to proceed with the visit, expressed an understanding of privacy and security of the telemedicine visit, and gave permission to have a hospital software sales representative in the room in order to assist with the visit and to conduct portions of the visit, as needed. I informed the patient (or authorized healthcare software sales representative) that I reviewed their record and presented the opportunity for them to ask any questions regarding the visit today. The patient agreed to participate. Assessment & Plan (1) Pneumonia: (2) Coag negative Staphylococcus bacteremia: Plan Assessment: Patient is 69-year-old male with PMH chronic interstitial lung disease with bilateral centrilobular emphysema, pulmonary fibrosis, bronchiectasis, chronic respiratory failure with hypoxia, on oxygen, HTN, HLD, pulmonary hypertension, MARÍA, GERD presented to [facility] on 02/18/2025 with c/o SOB. Patient reports worsening SOB over past couple of weeks and general malaise. He reports uses 4L O2 HS and has portable oxygen concentrator uses with exertion set at 2L. He states recently has been needing to use portal concentrator continuous throughout the day however past several days still feeling SOB and having hypoxia so he has been using home oxygen concentrator during the day also. Takes O2 off to ambulate to bathroom and feels very SOB. Blood cultures (+) Staph hominis. Plan: 1. Staph hominis bacteremia - Recommend TTE to r/o endovascular seeding or source - Recommend stopping Cefazolin IV and switching to Vancomycin IV. - we will not continue to monitor, if additional recommendations are needed please contact the ID physician covering the teledoc serve via phone or tiger text. History of Present Illness History of Present Illness Reason for consult: bacteremia Patient is 69-year-old male with PMH chronic interstitial lung disease with bilateral centrilobular emphysema, pulmonary fibrosis, bronchiectasis, chronic respiratory failure with hypoxia, on oxygen, HTN, HLD, pulmonary hypertension, MARÍA, GERD presented to [facility] on 02/18/2025 with c/o SOB. Patient reports worsening SOB over past couple of weeks and general malaise. He reports uses 4L O2 HS and has portable oxygen concentrator uses with exertion set at 2L. He states recently has been needing to use portal concentrator continuous throughout the day however past several days still feeling SOB and having hypoxia so he has been using home oxygen concentrator during the day also. Takes O2 off to ambulate to bathroom and feels very SOB. He states has nonproductive cough, that sometimes has slight clear sputum production. This week feeling chilled. Hasn't recorded a fever. He states intermittent night sweats recently. States also has decreased appetite and decreased oral intake. Reports gradual weight loss over past several years since his pulmonary diagnosis. Denies V/D/C, MEEHAN, dizziness, syncope, vision changes, neck pain, CP, palpitations, hemoptysis, sore throat, otalgia, rhinorrhea, abdominal pain, paresthesias, weakness, extremity weakness, extremity edema, rashes, urinary symptoms. Blood cultures (+) Staph hominis. ID consulted for evaluation and management. Allergies Allergy/AdvReac Type Severity Reaction Status Date / Time amoxicillin Allergy Unknown Hives Verified 02/18/25 20:20 Home Medications Medication Instructions Recorded Confirmed Type lisinopril 10 1 tab PO DAILY 01/26/23 02/18/25 History mg-hydrochlorothiazide 12.5 mg tablet umeclidinium 62.5 mcg-vilanterol 1 inh inhalation DAILY 01/26/23 02/18/25 History 25 mcg/actuation powdr for inhalation (Anoro Ellipta) aspirin 81 mg tablet,delayed 81 mg PO DAILY 02/18/25 02/18/25 History release Patient History Surgical History History of colonoscopy Family History Sister Breast cancer Mother Diabetes Social History Smoking Status: Former smoker Hx Alcohol Use: No Hx Substance Use: No Preferred Language: Estonian Communication Ability: Effective Support Services Tech Required: No Beliefs That Will Affect Care: None Current Living Situation: Spouse Feels Safe at Home: Yes Assistive Devices: Cane and Oxygen - Continuous Review of Systems ROS, all reviewed all negative Physical Exam NA Results & Data Vital Signs (Past 12 Hours) Vital Signs Temp Pulse Pulse Resp BP Pulse Ox Pulse Ox 02/20/25 11:34 85 L 02/20/25 11:23 36.7 C 105 H 20 104/67 90 02/20/25 11:21 106 H 16 90 02/20/25 08:20 95 02/20/25 08:20 02/20/25 07:52 36.4 C L 82 18 111/73 95 02/20/25 07:04 83 16 93 02/20/25 06:45 75 02/20/25 03:46 36.4 C L 79 18 103/68 92 Pulse Ox O2 Del Method O2 Flow Rate O2 Flow Rate O2 Flow Rate 02/20/25 11:34 77 L 5 5 02/20/25 11:23 High Flow Nasal Cannula 5 02/20/25 11:21 Nasal Cannula 5 02/20/25 08:20 Nasal Cannula 6 02/20/25 08:20 High Flow Nasal Cannula 6 02/20/25 07:52 High Flow Nasal Cannula 7 02/20/25 07:04 Nasal Cannula 6 02/20/25 06:45 02/20/25 03:46 Nasal Cannula 7 Laboratory Results Blood culture on 02/18/2025 Blood Culture Aerobic Preliminary 02/20/25-1053 Organism 1 Staphylococcus hominis Sens Sensitivities to Follow Phoned positive Blood Culture Gram Stain report to Monica Toth on 02/19/25 at 1507 by [id number]. [place] [id number]. Blood Culture Aerobic Preliminary 02/20/25-1051 Organism 1 Staphylococcus hominis Sens No Sensitivities to Follow Blood Culture PCR Panel If viewing in EMR, results available under LAB Serology tab. Phoned positive Blood Culture Gram Stain report to Monica Toth on 02/19/25 at 1507 [place] [id number]. [place] [id number]. Blood Culture Anaerobic Preliminary 02/20/25-1051 Organism 1 Staphylococcus epidermidis Sens No Sensitivities to Follow One set of two positive for Staph epidermidis. Isolation does not necessarily mean infection. No susceptibility tests performed. Contact microbiology laboratory ([phone]) if further studies are indicated. 02/20/25 Unknown Gram Stain - Final Sputum, Expectorated Sputum Culture - Pending 02/18/25 20:38 Aerobic Blood Culture - Preliminary Blood Staphylococcus hominis Anaerobic Blood Culture - Preliminary No growth in Anaerobic bottle after 24 hours. 02/18/25 20:38 Aerobic Blood Culture - Preliminary Blood Staphylococcus hominis Anaerobic Blood Culture - Preliminary Staphylococcus epidermidis 02/19/25 15:18 Aerobic Blood Culture - Pending Blood Anaerobic Blood Culture - Pending 02/19/25 15:18 Aerobic Blood Culture - Pending Blood Anaerobic Blood Culture - Pending 02/20/25 05:33 WBC 20.93 H D RBC 4.92 Hgb 16.4 Hct 47.6 MCV 96.7 MCH 33.3 MCHC 34.5 RDW Std Deviation 50.2 H RDW Coeff of Nyasia 13.9 Plt Count 283 MPV 10.7 Sodium 139 Potassium 4.3 Chloride 108 H Carbon Dioxide 24 Anion Gap 7 BUN 19 Creatinine 0.82 Est Cr Clr Drug Dosing 91.5 eGFR 93.91 BUN/Creatinine Ratio 23.2 H Glucose 167 H Calcium 9.1 Phosphorus 3.9 Magnesium 2.2 Diagnostic Findings CTA Chest on 02/18/2025 IMPRESSION: 1. Accounting for limitations with diffuse extensive respiratory artifact, there is no large/central saddle pulmonary embolism. Most very distal subsegmental pulmonary artery segments are of very limited to nondiagnostic quality. No 3D or MIP imaging provided. 2. Advanced emphysema with architectural loss and extensive distortion with diffuse bullous disease, similar in morphologic appearance to the previous examination. However, there is abnormal fluid along the posteromedial aspect of the previously noted large conglomerate bulla in the right upper lobe, new from the previous examination. Favor acute infection within this region. 3. The cardiac chambers are prominent. There is asymmetric dilation of the right atrium and ventricle with mild reflux of contrast into the intrahepatic IVC. This is a nonspecific finding but suggests right heart strain. Medications Administered Home Medications Medication Instructions Recorded Confirmed Last Taken lisinopril 10 1 tab PO DAILY 01/26/23 02/18/25 Unknown mg-hydrochlorothiazide 12.5 mg tablet umeclidinium 62.5 mcg-vilanterol 1 inh inhalation DAILY 01/26/23 02/18/25 Unknown 25 mcg/actuation powdr for inhalation (Anoro Ellipta) aspirin 81 mg tablet,delayed 81 mg PO DAILY 02/18/25 02/18/25 Unknown release Active Medications Generic Name Dose Route Start Last Admin Trade Name Chas PRN Reason Stop Dose Admin Albuterol 3 ml 02/20/25 13:00 02/20/25 13:25 Albut/Ipratrop 3mg/0.5mg Neb 3 Ml Vial NEB 03/22/25 12:59 3 ml Q6R COLLIN Administration Protocol Aspirin 81 mg 02/19/25 09:00 02/20/25 08:20 Aspirin 81 Mg Ectab PO 03/21/25 08:59 81 mg DAILY COLLIN Administration Enoxaparin Sodium 40 mg 02/19/25 09:00 02/20/25 08:20 Enoxaparin Inj 40 Mg/0.4 Ml Syr SQ 03/21/25 08:59 40 mg QAM COLLIN Administration Levofloxacin 750 mg 02/20/25 12:30 02/20/25 12:59 Levofloxacin 750 Mg Tab PO 02/26/25 12:29 750 mg DAILY@1100 COLLIN Administration Protocol Lisinopril 10 mg 02/19/25 09:00 02/20/25 08:20 Lisinopril 10 Mg Tab PO 03/21/25 08:59 10 mg QAM COLLIN Administration Sodium Chloride 4 ml 02/20/25 11:15 02/20/25 11:21 Sodium Chlor 7% 4 Ml Neb NEB 03/22/25 11:14 4 ml BIDR COLLIN Administration (1) Pneumonia Laterality: right Lung location: unspecified part of lung Pneumonia type: due to unspecified organism Qualified Code(s): J18.9 - Pneumonia, unspecified organism
[2025-02-20] MEDS ORDERED: VANCOMYCIN CONSULT ACTIVE PRN (12:34)
[2025-02-20] MEDS: VANCOMYCIN HCL 1,750 MG in SODIUM CHLORIDE 0.9% 500 ML IV ONE (13:11)
[2025-02-20] MEDS: ALBUT/IPRATROP 3MG/0.5MG NEB 3 ML VIAL NEB SCH (13:25)
--- NOTE | 2025-02-20 15:35 | Pharmacy Report ---
Pharmacy PK ABX Note - Date of Service February 20, 2025 - Assessment and Plan Assessment 69 year old M receiving vancomycin for treatment of bacteremia and levofloxacin for CAP. He has a history of chronic interstitial lung disease, bilateral centrilobular emphysema, chronic hypoic respiratory failure 2/2 pulmonary fibrosis & bronchiectasis. He was admitted 02/18 for acute on chronic respiratory failure and started on po Levaquin. Blood cultures drawn 02/18 were positive and vancomycin was added today. ID has been consulted * Pertinent microbiologic data includes: Blood cultures from 02/18 grew Staph hominis, and Staph epi. Blood cultures x 2 from 02/19 and sputum culture from 02/20 are pending. * MRSA nasal swab from 02/18 is negative Day # 1 of vancomycin therapy. Plan Vancomycin * Loading dose: 1750 mg IV x 1 * Maintenance dose: 1000 mg IV every 12 hours * Regimen is predicted to achieve target AUC/ANTONIO of 400-600 mg/L.hr * Random level ordered for: 02/22/25 at 0900 Levaquin 750mg po daily Pharmacy will continue to follow and will adjust dose/frequency as necessary. Thank you. Pharmacy has transitioned to AUC monitoring for vancomycin. AUC/ANTONIO is the preferred PK/PD target and is associated with decreased risk of nephrotoxicity compared to traditional trough targets.
--- NOTE | 2025-02-20 17:59 | Hospitalist Progress Note ---
Date of Service February 20, 2025 Assessment & Plan (1) Chronic hypoxic respiratory failure: (2) COPD (chronic obstructive pulmonary disease): (3) Pulmonary fibrosis: (4) HTN (hypertension): Plan Mr. Watson is a 69 year old gentleman with history of former tobacco use, MARÍA, HLD, HTN, GERD, chronic interstitial lung disease, bilateral centrilobular emphysema, chronic hypoic respiratory failure 2/2 pulmonary fibrosis & bronchiectasis who is admitted for acute on chronic hypoxia iso COPD exacerbation IMPRESSION1. Slight progression diffuse innumerable large bilateral lung cysts most pronounced in the lung apices and areas of architectural distortion. Findings may reflect a combination of emphysema and interstitial lung disease. Vinny Vy José Miguel syndrome remains a differential consideration.2. Diffuse mosaic attenuation throughout the lungs consistent with airway trapping.3. Dilated pulmonary trunk measuring up to 3.6 centimeters.4. Ascending aortic ectasia measuring 3.[address] chest results will be discussed with patient at follow-up 6 minute walk test 02/03/2025 showed res ting and exertional hypoxia. Patient had 85% oxygen saturation on room air at rest, required 3 LPM oxygen at rest to maintain oxygen saturation above 90%. Patient required 6 LPM oxygen during ambulation to maintain oxygen saturation above 90%.New prescription for 3 LPM oxygen at rest and 6 LPM oxygen with activity with POC being ordered. Please notify patient regarding oxygen prescription being sent to DME and ensure processing. #Acute on chronic hypoxic respiratory failure #Combined pulmonary fibrosis and emphysema #Nocturnal hypoxia reports only requiring O2 on exertion, however, it appears as of today in EMR oxygen just increased to above CT imaging from December revealed progression of bilateral lungs cysts Continue 4 L oxygen with sleep Continue Anoro daily Add Pulmicort and Perforomist bid Xopenex and ipratropium q6r transition Solumedrol 40mg q 12 hours Recent 6MWT: 3L at rest, 6L on ambulation continue doxy bid procal 0.24--suspect exacerbation 2/2 nontherapeutic O2 script continue Mucinex o2 goal 88-90% 02/20 sputum culture: pending Pulm consulted nebs odered steroids discontinued Levaquin started #Bacteremia blood culture: Staph hominis and epidermis repeat blood culture: pending ID consulted echo ordered transitioned from Cefazolin to Vancomycin IV #HTN continue lisinopril #Hyponatremia hold hctz, resolved at this time would consider d/c thiazide given history of #AAA follows Vascular continue ASA dvt ppx lovenox likely 1-2 days PCP [facility] Admission and Anticipated Discharge Date Admission Date: February 18, 2025 Subjective seen resting in bed, comfortable on 5L NC states he feels better than admission breathing is better, less cough no chest pain no fever/chills no other symptoms Review of Systems Review of Systems: all noted and negative except for above Physical Exam Physical Exam: General- oriented x 3, not in distress, speaks in sentences with no effort or accessory muscle use Eyes- anicteric Neck- no JVD Lungs- diminished but clear breath sounds bilaterally Heart- normal rate, regular rhythm; no murmurs Abdomen- normal bowel sounds, nondistended, soft, nontender Extremities- no pretibial edema, no calf tenderness Neuro- alert, oriented x 3; no gross focal neurologic deficits Skin- warm & dry Results & Data Results & Data Vital Signs (Past 12 Hours) Vital Signs Temp Pulse Pulse Resp BP Pulse Ox Pulse Ox 02/20/25 16:00 87 L 02/20/25 16:00 36.7 C 98 H 18 125/77 87 L 02/20/25 14:35 89 L 02/20/25 13:25 106 H 18 90 02/20/25 13:10 97 H 02/20/25 11:34 85 L 02/20/25 11:23 36.7 C 105 H 20 104/67 90 02/20/25 11:21 106 H 16 90 02/20/25 08:20 95 02/20/25 08:20 02/20/25 07:52 36.4 C L 82 18 111/73 95 02/20/25 07:04 83 16 93 02/20/25 06:45 75 Pulse Ox O2 Del Method O2 Flow Rate O2 Flow Rate O2 Flow Rate 02/20/25 16:00 Nasal Cannula 5 02/20/25 16:00 Nasal Cannula 5 02/20/25 14:35 02/20/25 13:25 Nasal Cannula 5 02/20/25 13:10 02/20/25 11:34 77 L 5 5 02/20/25 11:23 High Flow Nasal Cannula 5 02/20/25 11:21 Nasal Cannula 5 02/20/25 08:20 Nasal Cannula 6 02/20/25 08:20 High Flow Nasal Cannula 6 02/20/25 07:52 High Flow Nasal Cannula 7 02/20/25 07:04 Nasal Cannula 6 02/20/25 06:45 all noted and reviewed including below
[2025-02-20] MEDS: ADVANCED PROBIOTIC 625 MG CAPSULE PO SCH (18:34)
[2025-02-20] MEDS ORDERED: SODIUM CHLOR 7% 4 ML NEB NEB SCH (19:00)
[2025-02-20] MEDS: guaiFENesin 600 MG TABCR PO SCH (21:42)
[2025-02-20] MEDS: VANCOMYCIN HCL / NSS 1,000 MG/270 ML BAG IV SCH (21:42)
[2025-02-20 23:07] LABS: Base Excess VBG 1.6 mEq/L; HCO3 VBG 23 mmol/L; Oxygen Saturation VBG 100.0 %; PCO2 VBG 26 mmHg (38-50); PO2 VBG 215 mmHg; pH VBG 7.55 (7.36-7.41)
--- NOTE | 2025-02-21 01:08 | XRay Report ---
Exam(s): XR CXR 1 VIEW EXAM: XR Chest, 1 View CLINICAL HISTORY: Reason for exam: low o2. TECHNIQUE: Frontal view of the chest. COMPARISON: 02/18/2025 FINDINGS: Lungs: Sparse interstitial markings in the upper lobes and coarse linear densities throughout both lung bases. No consolidation. Pleural space: Unremarkable. No pneumothorax. Heart: Cardiac silhouette is mildly enlarged, unchanged. Mediastinum: Unremarkable. Normal mediastinal contour. Bones/joints: Mild osteophytosis throughout the thoracic spine. No acute fracture. Upper abdomen: Unremarkable as visualized. No pneumoperitoneum under the diaphragm. IMPRESSION: 1. Sparse interstitial markings in the upper lobes and coarse linear densities throughout both lung bases. Likely combination of moderate to severe emphysema with bibasilar infiltrates and/or atelectasis, slightly improved since previous. No pneumothorax or pleural effusion is seen. 2. Cardiac silhouette is mildly enlarged, unchanged. Electronically signed by: Joaquim Salazar MD 02/21/25 01:07 AM
--- NOTE | 2025-02-21 06:50 | Pulmonology Progress Note ---
Date of Service February 21, 2025 Assessment & Plan (1) Pneumonia: Laterality: right Lung location: unspecified part of lung P neumonia type: due to unspecified organism Qualified Code(s): J18.9 - Pneumonia, unspecified organism (2) Chronic hypoxic respiratory failure: (3) Hypoxia: (4) COPD (chronic obstructive pulmonary disease): (5) Pulmonary fibrosis: (6) Pulmonary hypertension: Plan Impression: Juliano Watson is a 69-year-old male with past medical history of ILD, pulmonary fibrosis, bronchiectasis, chronic hypoxic respiratory failure was on 2L with exertion and 4L at night, HTN, HLD, MARÍA, pulmonary hypertension, and GERD; who presented to [facility] on 02/18/2025 with worsening shortness of breath. CT scan demonstrates patchy areas of consolidation. Recommendations: COPD; emphysema; bronchiectasis with pneumonia No evidence of COPD exacerbation so off steroids. Continue aggressive bronchodilators. Patient is currently on DuoNebs every 6, Mucinex 1200 mg twice a day hypertonic saline nebs. Will add Tessalon to see if we can help with his cough. Continue flutter valve and incentive spirometry. Follow white blood cell count procalcitonin. Antibiotics were adjusted by infectious disease. ILD; pulmonary fibrosis Appears fairly advanced. Outpatient workup per his outpatient lead blender at [facility] Pulmonary [facility] likely WHO class III No indication for pulmonary vasodilators currently. Acute on chronic hypoxic respiratory failure likely multifactorial Working with respiratory therapy and case management to see if DME can provide a high capacity oxygen concentrator. His home POC and the longer meet his needs. Out of bed to chair as tolerated and ambulate is much as possible. The patient does have mild hypercarbia on his blood gas which is contributing to his hypoxemic respiratory failure. Given his significant bullous disease, I think noninvasive positive pressure ventilation may be an option in the outpatient setting once he is clinically stable. Recommend follow up with Dr. Jack patient's primary lead blender upon discharge. Discussed role of palliative care given his level of symptom and disease burden. Patient is interested but would like to talk to Dr. Jack first. Feel free to contact us with questions or concerns Admission and Anticipated Discharge Date Admission Date: February 18, 2025 Subjective Patient seen and examined. EMR reviewed. Patient states he is feeling little bit better. He continues to have paroxysms of cough which are nonproductive. His oxygen requirement remains at baseline. He was seen by ID. Antibiotics were further adjusted. He does not report any phlegm production. No hemoptysis. No lower extremity edema Review of Systems 2 Review of Systems: All systems reviewed & are unremarkable except as noted in Subjective Physical Exam 2 Constitutional: WD/WN, vitals as above Neck: trachea midline, no thyromegaly Respiratory: no labored breathing and not tachypneic Auscultation: + diminished lung sounds and + rhonchi; no wheezes Cardiovascular: RRR, no murmur, no edema Gastrointestinal (Abdomen): normal bowel sounds, soft, nontender, no hepatosplenomegaly Musculoskeletal: Extremities: extremities normal to inspection Skin: no rashes, warm and dry Neurologic: Nonfocal exam Lymphatic: no cervical lymphadenopathy Results & Data Results & Data Vital Signs (Past 12 Hours) Vital Signs Temp Pulse Pulse Resp BP Pulse Ox O2 Del Method 02/21/25 03:40 36.5 C 88 18 110/71 90 Nasal Cannula 02/21/25 00:25 81 20 91 Oxymask 02/20/25 23:37 36.6 C 70 18 109/71 89 L Nasal Cannula 02/20/25 21:51 88 02/20/25 21:45 Oxymask 02/20/25 19:16 90 20 92 Nasal Cannula O2 Flow Rate 02/21/25 03:40 5 02/21/25 00:25 6 02/20/25 23:37 5 02/20/25 21:51 02/20/25 21:45 6 02/20/25 19:16 6 Laboratory Results 02/20/25 05:33 02/20/25 05:33 Diagnostic Findings No imaging PG Care Time/CCT Total # of Minutes Spent Total Time Spent with Patient: Total time spent is greater than 50% in coordination of care (as documented) at patient's floor/unit and/or counseling patient: Coding Level of Care Code 43993 SUB INP/OBS CARE 2/35MIN Diagnoses Pneumonia J18.9 Laterality: right Lung location: unspecified part of lung Pneumonia type: due to unspecified organism Chronic hypoxic respiratory failure J96.11 Hypoxia R09.02 COPD (chronic obstructive pulmonary disease) J44.9 Pulmonary fibrosis J84.10 Pulmonary hypertension I27.20
[2025-02-21] MEDS: BUDESONIDE 0.5 MG/2 ML VIAL (PULMICORT) NEB SCH (07:23)
[2025-02-21] MEDS: FORMOTEROL 20 MCG/2 ML VIAL NEB SCH (07:24)
[2025-02-21 07:45] LABS: Hematocrit (blood only) 46.8 % (42.0-52.0); Hemoglobin 16.0 g/dl (14.0-18.0); Immature Granulocytes # (auto) 0.43 K/uL (0.01-0.20); Immature Granulocytes % (auto) 2.3 %; Mean Corpuscular Hemoglobin 33.3 pg (25.0-34.0); Mean Corpuscular Volume 97.3 fL (80.0-100.0); Platelet Count 284 K/uL (130-400); RDW Standard Deviation 50.8 fL (36.4-46.3); Red Blood Count 4.81 M/uL (4.70-6.10); White Blood Count 18.56 K/ul (4.8-10.8)
[2025-02-21] MEDS: BENZONATATE 100 MG CAPSULE PO SCH (08:10)
[2025-02-21 08:32] LABS: Alanine Aminotransferase 8.0 U/L (7-52); Albumin Globulin Ratio 1.0 (0.9-2); Alkaline Phosphatase 65.0 U/L (34-104); Anion Gap 8.0 (3-11); Bilirubin,Total 0.5 mg/dl (0.2-1.0); Blood Urea Nitrogen 19.0 mg/dl (6-23); Calcium 9.1 mg/dl (8.6-10.3); Carbon Dioxide 24.0 mmol/L (21-32); Chloride 107.0 mmol/L (98-107); Creatinine Clr Calc Pharmacy 100.1 ml/min; Globulin 3.3 gm/dl (2.5-4.0); Glucose 150.0 mg/dl (70-99(Fasting)); Potassium 4.4 mmol/L (3.5-5.1); Sodium 139.0 mmol/L (136-145); Total Protein 6.5 gm/dl (6.0-8.3)
[2025-02-21] MEDS: PERFLUTREN LIPID MICROSPHERE (DEFINITY) IV ONE (09:42)
--- NOTE | 2025-02-21 18:59 | Hospitalist Progress Note ---
Date of Service February 21, 2025 Assessment & Plan (1) Chronic hypoxic respiratory failure: (2) COPD (chronic obstructive pulmonary disease): (3) Pulmonary fibrosis: (4) HTN (hypertension): Plan Mr. Watson is a 69 year old gentleman with history of former tobacco use, MARÍA, HLD, HTN, GERD, chronic interstitial lung disease, bilateral centrilobular emphysema, chronic hypoic respiratory failure 2/2 pulmonary fibrosis & bronchiectasis who is admitted for acute on chronic hypoxia iso COPD exacerbation IMPRESSION1. Slight progression diffuse innumerable large bilateral lung cysts most pronounced in the lung apices and areas of architectural distortion. Findings may reflect a combination of emphysema and interstitial lung disease. Vinny Vy José Miguel syndrome remains a differential consideration.2. Diffuse mosaic attenuation throughout the lungs consistent with airway trapping.3. Dilated pulmonary trunk measuring up to 3.6 centimeters.4. Ascending aortic ectasia measuring 3.[address] chest results will be discussed with patient at follow-up 6 minute walk test 02/03/2025 showed res ting and exertional hypoxia. Patient had 85% oxygen saturation on room air at rest, required 3 LPM oxygen at rest to maintain oxygen saturation above 90%. Patient required 6 LPM oxygen during ambulation to maintain oxygen saturation above 90%.New prescription for 3 LPM oxygen at rest and 6 LPM oxygen with activity with POC being ordered. Please notify patient regarding oxygen prescription being sent to DME and ensure processing. #Acute on chronic hypoxic respiratory failure #Combined pulmonary fibrosis and emphysema #Nocturnal hypoxia reports only requiring O2 on exertion, however, it appears as of today in EMR oxygen just increased to above CT imaging from December revealed progression of bilateral lungs cysts Continue 4 L oxygen with sleep Continue Anoro daily Add Pulmicort and Perforomist bid Xopenex and ipratropium q6r transition Solumedrol 40mg q 12 hours Recent 6MWT: 3L at rest, 6L on ambulation continue doxy bid procal 0.24--suspect exacerbation 2/2 nontherapeutic O2 script continue Mucinex o2 goal 88-90% 02/21 sputum culture: pending Pulm consulted remains on 6 L nasal cannula Perforomist, Pulmicort nebs added steroids discontinued Antibiotic changed to Levaquin day #2 #Bacteremia blood culture: Staph hominis and epidermis repeat blood culture: pending ID consulted transitioned from Cefazolin to Vancomycin IV day #2 per ID TTE ordered: Vegetation not seen but cannot be excluded, aortic valve sclerosis mild, focal thickening of the aortic valve, vegetation not seen but cannot be excluded, mild aortic root dilatation #HTN continue lisinopril #Hyponatremia hold hctz, resolved at this time would consider d/c thiazide #AAA follows Vascular continue ASA dvt ppx lovenox PCP [facility] Admission and Anticipated Discharge Date Admission Date: February 18, 2025 Subjective seen resting in bed, comfortable states he was not able to sleep well overnight Per RN, patient was desaturating patient states that he feels okay overall, just tired from not sleeping Cough is getting less No other new symptoms Review of Systems Review of Systems: all noted and negative except for above Physical Exam Physical Exam: General- oriented x 3, not in distress, speaks in sentences with no effort or accessory muscle use Eyes- anicteric Neck- no JVD Lungs- somewhat diminished but clear breath sounds bilaterally Heart- normal rate, regular rhythm; no murmurs Abdomen- normal bowel sounds, nondistended, soft, no tenderness Extremities- no pretibial edema, no calf tenderness Neuro- alert, oriented x 3; no gross focal neurologic deficits Skin- warm & dry Results & Data Results & Data Vital Signs (Past 12 Hours) Vital Signs Temp Pulse Pulse Resp BP Pulse Ox Pulse Ox 02/21/25 13:00 90 02/21/25 12:45 91 H 16 93 02/21/25 08:10 02/21/25 08:04 36.6 C 84 18 125/80 90 02/21/25 07:25 82 16 92 02/21/25 07:00 92 O2 Del Method O2 Del Method O2 Flow Rate O2 Flow Rate 02/21/25 13:00 02/21/25 12:45 Nasal Cannula 6 02/21/25 08:10 High Flow Nasal Cannula 6 02/21/25 08:04 Nasal Cannula 5 02/21/25 07:25 Oxymask 5 02/21/25 07:00 Oxymask 6 all noted and reviewed including below
[2025-02-22 05:51] LABS: Hematocrit (blood only) 49.1 % (42.0-52.0); Hemoglobin 16.8 g/dl (14.0-18.0); Immature Granulocytes # (auto) 0.37 K/uL (0.01-0.20); Immature Granulocytes % (auto) 2.2 %; Mean Corpuscular Hemoglobin 33.4 pg (25.0-34.0); Mean Corpuscular Volume 97.6 fL (80.0-100.0); Platelet Count 284 K/uL (130-400); RDW Standard Deviation 52.1 fL (36.4-46.3); Red Blood Count 5.03 M/uL (4.70-6.10); White Blood Count 17.14 K/ul (4.8-10.8)
[2025-02-22 06:20] LABS: Alanine Aminotransferase 12.0 U/L (7-52); Albumin Globulin Ratio 0.9 (0.9-2); Alkaline Phosphatase 64.0 U/L (34-104); Anion Gap 6.0 (3-11); Bilirubin,Total 1.2 mg/dl (0.2-1.0); Blood Urea Nitrogen 20.0 mg/dl (6-23); Calcium 9.0 mg/dl (8.6-10.3); Carbon Dioxide 26.0 mmol/L (21-32); Chloride 105.0 mmol/L (98-107); Creatinine Clr Calc Pharmacy 92.6 ml/min; Globulin 3.4 gm/dl (2.5-4.0); Glucose 117.0 mg/dl (70-99(Fasting)); Potassium 4.0 mmol/L (3.5-5.1); Sodium 137.0 mmol/L (136-145); Total Protein 6.6 gm/dl (6.0-8.3)
--- NOTE | 2025-02-22 07:38 | Pulmonology Progress Note ---
Date of Service February 22, 2025 Assessment & Plan (1) Pneumonia: Laterality: right Lung location: unspecified part of lung P neumonia type: due to unspecified organism Qualified Code(s): J18.9 - Pneumonia, unspecified organism (2) Chronic hypoxic respiratory failure: (3) Hypoxia: (4) COPD (chronic obstructive pulmonary disease): (5) Pulmonary fibrosis: (6) Pulmonary hypertension: Plan Impression: Juliano Watson is a 69-year-old male with past medical history of ILD, pulmonary fibrosis, bronchiectasis, chronic hypoxic respiratory failure was on 2L with exertion and 4L at night, HTN, HLD, MARÍA, pulmonary hypertension, and GERD; who presented to [facility] on 02/18/2025 with worsening shortness of breath. CT scan demonstrates patchy areas of consolidation. Recommendations: COPD; emphysema; bronchiectasis with pneumonia Continue aggressive bronchodilators. Patient is currently on DuoNebs every 6, budesonide and Perforomist, Mucinex 1200 mg twice a day hypertonic saline nebs. Will discontinue Tessalon. Continue pulmonary toilet strategies. ILD; pulmonary fibrosis/cystic lung disease Appears fairly advanced. Outpatient workup per his outpatient employee adviser at [facility] likely WHO class III No indication for pulmonary vasodilators currently. Diuresis as tolerated Acute on chronic hypoxic respiratory failure likely multifactorial Working with respiratory therapy and case management to see if DME can provide a high capacity oxygen concentrator. His home POC and the longer meet his needs. Out of bed to chair as tolerated and ambulate is much as possible. The patient does have mild hypercarbia on his blood gas which is contributing to his hypoxemic respiratory failure. Given his significant bullous disease, I think noninvasive positive pressure ventilation may be an option in the outpatient setting once he is clinically stable. Recommend follow up with Dr. Jack patient's primary employee adviser upon discharge. Discussed role of palliative care given his level of symptom and disease burden. Patient is interested but would like to talk to Dr. Jack first. Feel free to contact us with questions or concerns Admission and Anticipated Discharge Date Admission Date: February 18, 2025 Subjective Patient seen and examined. EMR reviewed. Patient reports that the Tessalon caused him to cough more yesterday. His cough is becoming slightly more productive. No hemoptysis. He states he actually feels pretty good. He is been able to ambulate to the bathroom. He remains on relatively high amount of oxygen. Review of Systems 2 Review of Systems: All systems reviewed & are unremarkable except as noted in Subjective Physical Exam 2 Constitutional: WD/WN, vitals as above Neck: trachea midline, no thyromegaly Respiratory: no labored breathing and not tachypneic Auscultation: + diminished lung sounds and + rhonchi; no wheezes Cardiovascular: RRR, no murmur, no edema Gastrointestinal (Abdomen): normal bowel sounds, soft, nontender, no hepatosplenomegaly Musculoskeletal: Extremities: extremities normal to inspection Skin: no rashes, warm and dry Lymphatic: no cervical lymphadenopathy Results & Data Results & Data Vital Signs (Past 12 Hours) Vital Signs Temp Pulse Pulse Resp BP Pulse Ox O2 Del Method 02/22/25 07:22 105 H 20 90 Nasal Cannula 02/22/25 03:01 37.3 C 98 H 18 126/77 85 L High Flow Nasal Cannula 02/21/25 22:55 37.3 C 103 H 18 116/71 86 L High Flow Nasal Cannula 02/21/25 21:44 108 H 02/21/25 21:15 High Flow Nasal Cannula 02/21/25 20:27 36.8 C 120 H 18 122/72 87 L High Flow Nasal Cannula 02/21/25 20:03 119 H 16 88 L Nasal Cannula O2 Flow Rate 02/22/25 07:22 5 02/22/25 03:01 8 02/21/25 22:55 8 02/21/25 21:44 02/21/25 21:15 6 02/21/25 20:27 8 02/21/25 20:03 6 Laboratory Results 02/22/25 05:29 02/22/25 05:29 Diagnostic Findings No new imaging PG Care Time/CCT Total # of Minutes Spent Total Time Spent with Patient: Total time spent is greater than 50% in coordination of care (as documented) at patient's floor/unit and/or counseling patient: Coding Level of Care Code 31905 SUB INP/OBS CARE 2/35MIN Diagnoses Pneumonia J18.9 Laterality: right Lung location: unspecified part of lung Pneumonia type: due to unspecified organism Chronic hypoxic respiratory failure J96.11 Hypoxia R09.02 COPD (chronic obstructive pulmonary disease) J44.9 Pulmonary fibrosis J84.10 Pulmonary hypertension I27.20
[2025-02-22] MEDS: VANCOMYCIN LEVEL ONE (10:15)
--- NOTE | 2025-02-22 10:23 | Pharmacy Report ---
Pharmacy PK ABX Note - Date of Service February 22, 2025 - Assessment and Plan Assessment * 69 year old M receiving vancomycin for treatment of bacteremia and levofloxacin for CAP. He has a history of chronic interstitial lung disease, bilateral centrilobular emphysema, chronic hypoxic respiratory failure 2/2 pulmonary fibrosis & bronchiectasis. He was admitted 02/18 for acute on chronic respiratory failure and started on po Levaquin. Blood cultures drawn 02/18 were positive and vancomycin was added 02/20. ID has been consulted * Pertinent microbiologic data includes: * Blood cultures from 02/18 grew 2/2 Staph hominis, and 1/2 Staph epi. * Blood cultures x 2 from 02/19 NGTD * Sputum culture from 02/20 NGTD * MRSA nasal swab from 02/18 is negative Plan Vancomycin * Target AUC/ANTONIO of 400-600 mg/L.hr * Random level of 9.5 mcg/mL associated with a subtherapeutic AUC of 370 mg/L.hr * Increase vancomycin to 1500 mg IV q12h * Random level ordered for: 02/24/25 w AM labs Levaquin 750mg po daily Pharmacy will continue to follow and will adjust dose/frequency as necessary. Thank you. Pharmacy has transitioned to AUC monitoring for vancomycin. AUC/ANTONIO is the preferred PK/PD target and is associated with decreased risk of nephrotoxicity compared to traditional trough targets.
--- NOTE | 2025-02-22 16:52 | Hospitalist Progress Note ---
Date of Service February 22, 2025 Assessment & Plan (1) Chronic hypoxic respiratory failure: (2) COPD (chronic obstructive pulmonary disease): (3) Pulmonary fibrosis: (4) HTN (hypertension): Plan Mr. Watson is a 69 year old gentleman with history of former tobacco use, MARÍA, HLD, HTN, GERD, chronic interstitial lung disease, bilateral centrilobular emphysema, chronic hypoic respiratory failure 2/2 pulmonary fibrosis & bronchiectasis who is admitted for acute on chronic hypoxia iso COPD exacerbation IMPRESSION1. Slight progression diffuse innumerable large bilateral lung cysts most pronounced in the lung apices and areas of architectural distortion. Findings may reflect a combination of emphysema and interstitial lung disease. Vinny Vy José Miguel syndrome remains a differential consideration.2. Diffuse mosaic attenuation throughout the lungs consistent with airway trapping.3. Dilated pulmonary trunk measuring up to 3.6 centimeters.4. Ascending aortic ectasia measuring 3.[address] chest results will be discussed with patient at follow-up 6 minute walk test 02/03/2025 showed res ting and exertional hypoxia. Patient had 85% oxygen saturation on room air at rest, required 3 LPM oxygen at rest to maintain oxygen saturation above 90%. Patient required 6 LPM oxygen during ambulation to maintain oxygen saturation above 90%.New prescription for 3 LPM oxygen at rest and 6 LPM oxygen with activity with POC being ordered. Please notify patient regarding oxygen prescription being sent to DME and ensure processing. #Acute on chronic hypoxic respiratory failure #Combined pulmonary fibrosis and emphysema #Nocturnal hypoxia reports only requiring O2 on exertion, however, it appears as of today in EMR oxygen just increased to above CT imaging from December revealed progression of bilateral lungs cysts Continue 4 L oxygen with sleep Continue Anoro daily cotninue Pulmicort and Perforomist bid Xopenex and ipratropium q6r Recent 6MWT: 3L at rest, 6L on ambulation continue Mucinex o2 goal 88-90% sputum culture with normal ivis continue on levaquin Agreed to Palliative consultation given progressive nature of disease and increasing o2 demands #Bacteremia, GPC blood culture: Staph hominis and epidermis repeat blood culture: NGTD ID consulted continue Vancomycin IV day #3 per ID TTE ordered: Vegetation not seen but cannot be excluded, aortic valve sclerosis mild, focal thickening of the aortic valve, vegetation not seen but cannot be excluded, mild aortic root dilatation will discuss with ID in am #HTN continue lisinopril #Hyponatremia hold hctz, resolved at this time would consider d/c thiazide #AAA follows Vascular continue ASA dvt ppx lovenox PCP [facility] Admission and Anticipated Discharge Date Admission Date: February 18, 2025 Subjective Reports subjective improvement overall denies any fevers or chills states that he is ready to wrap things up and get home when he can Physical Exam Constitutional: WD/WN, vitals as above Respiratory: diminshed diffusely no wheezing or rhonchi Cardiovascular: RRR, no murmur, no edema Gastrointestinal (Abdomen): normal bowel sounds, soft, nontender, no hepatosplenomegaly Results & Data Results & Data Vital Signs (Past 12 Hours) Vital Signs Temp Pulse Pulse Resp BP Pulse Ox O2 Del Method 02/22/25 16:24 36.9 C 110 H 16 129/84 89 L Nasal Cannula 02/22/25 14:00 109 H 02/22/25 12:52 107 H 20 90 Nasal Cannula 02/22/25 11:51 36.7 C 105 H 20 111/73 88 L High Flow Nasal Cannula 02/22/25 08:25 37.0 C 99 H 20 114/71 88 L High Flow Nasal Cannula 02/22/25 08:11 96 H 02/22/25 07:22 105 H 20 90 Nasal Cannula O2 Flow Rate 02/22/25 16:24 6 02/22/25 14:00 02/22/25 12:52 5 02/22/25 11:51 6 02/22/25 08:25 5.5 02/22/25 08:11 02/22/25 07:22 5 Laboratory Results Short CBC 02/22/25 Range/Units 05:29 WBC 17.14 H (4.8-10.8) K/ul Hgb 16.8 (14.0-18.0) g/dl Hct 49.1 (42.0-52.0) % Plt Count 284 (130-400) K/uL BMP 02/22/25 05:29 Sodium 137 Potassium 4.0 Chloride 105 Carbon Dioxide 26 BUN 20 Creatinine 0.80 Glucose 117 H Calcium 9.0 Liver Function 02/22/25 Range/Units 05:29 Total Bilirubin 1.2 H D (0.2-1.0) mg/dl AST 23 (13-39) U/L ALT 12 (7-52) U/L Alkaline Phosphatase 64 (34-104) U/L Albumin 3.2 L (3.4-5.0) gm/dl Medications Administered Home Medications Medication Instructions Recorded Confirmed Last Taken lisinopril 10 1 tab PO DAILY 01/26/23 02/18/25 Unknown mg-hydrochlorothiazide 12.5 mg tablet umeclidinium 62.5 mcg-vilanterol 1 inh inhalation DAILY 01/26/23 02/18/25 Unknown 25 mcg/actuation powdr for inhalation (Anoro Ellipta) aspirin 81 mg tablet,delayed 81 mg PO DAILY 02/18/25 02/18/25 Unknown release Active Medications Generic Name Dose Route Start Last Admin Trade Name Tabq PRN Reason Stop Dose Admin Albuterol 3 ml 02/20/25 13:00 02/22/25 12:52 Albut/Ipratrop 3mg/0.5mg Neb 3 Ml Vial NEB 03/22/25 12:59 3 ml Q6R COLLIN Administration Protocol Aspirin 81 mg 02/19/25 09:00 02/22/25 10:14 Aspirin 81 Mg Ectab PO 03/21/25 08:59 81 mg DAILY COLLIN Administration Benzonatate 100 mg 02/21/25 09:00 02/22/25 13:41 Benzonatate 100 Mg Capsule PO 03/23/25 08:59 100 mg TID COLLIN Administration Budesonide 0.5 mg 02/21/25 07:00 02/22/25 07:22 Budesonide 0.5 Mg/2 Ml Vial (Pulmicort) NEB 03/23/25 06:59 0.5 mg BIDR COLLIN Administration Enoxaparin Sodium 40 mg 02/19/25 09:00 02/22/25 10:13 Enoxaparin Inj 40 Mg/0.4 Ml Syr SQ 03/21/25 08:59 40 mg QAM COLLIN Administration Formoterol Fumarate 20 mcg 02/21/25 07:00 02/22/25 07:22 Formoterol 20 Mcg/2 Ml Vial NEB 03/23/25 06:59 20 mcg BIDR COLLIN Administration Guaifenesin 1,200 mg 02/20/25 21:00 02/22/25 10:14 Guaifenesin 600 Mg Tabcr PO 03/22/25 20:59 1,200 mg Q12 COLLIN Administration Lactobacillus Acidophilus 1,250 mg 02/20/25 09:00 02/22/25 10:13 Advanced Probiotic 625 Mg Capsule PO 03/22/25 08:59 1,250 mg DAILY COLLIN Administration Levofloxacin 750 mg 02/20/25 12:30 02/22/25 10:14 Levofloxacin 750 Mg Tab PO 02/26/25 12:29 750 mg DAILY@1100 COLLIN Administration Protocol Lisinopril 10 mg 02/19/25 09:00 02/22/25 10:14 Lisinopril 10 Mg Tab PO 03/21/25 08:59 10 mg QAM COLLIN Administration Sodium Chloride 4 ml 02/20/25 11:15 02/22/25 07:22 Sodium Chlor 7% 4 Ml Neb NEB 03/22/25 11:14 4 ml BIDR COLLIN Administration
[2025-02-22] MEDS: VANCOMYCIN HCL 1,500 MG in SODIUM CHLORIDE 0.9% 500 ML IV SCH (21:13)
[2025-02-23 06:45] LABS: Hematocrit (blood only) 50.0 % (42.0-52.0); Hemoglobin 16.8 g/dl (14.0-18.0); Mean Corpuscular Hemoglobin 33.2 pg (25.0-34.0); Mean Corpuscular Volume 98.8 fL (80.0-100.0); Platelet Count 277 K/uL (130-400); RDW Standard Deviation 53.6 fL (36.4-46.3); Red Blood Count 5.06 M/uL (4.70-6.10); White Blood Count 23.62 K/ul (4.8-10.8)
[2025-02-23 07:19] LABS: Anion Gap 8.0 (3-11); Blood Urea Nitrogen 18.0 mg/dl (6-23); Calcium 8.9 mg/dl (8.6-10.3); Carbon Dioxide 26.0 mmol/L (21-32); Chloride 105.0 mmol/L (98-107); Creatinine Clr Calc Pharmacy 86.4 ml/min; Glucose 129.0 mg/dl (70-99(Fasting)); Magnesium 2.2 mg/dl (1.7-2.4); Potassium 3.8 mmol/L (3.5-5.1); Sodium 139.0 mmol/L (136-145)
[2025-02-23 08:05] LABS: Immature Granulocytes # (auto) 0.61 K/uL (0.01-0.20); Immature Granulocytes % (auto) 2.6 %
--- NOTE | 2025-02-23 08:20 | Hospitalist Progress Note ---
Date of Service February 23, 2025 Assessment & Plan (1) Chronic hypoxic respiratory failure: (2) COPD (chronic obstructive pulmonary disease): (3) Pulmonary fibrosis: (4) HTN (hypertension): Plan Mr. Watson is a 69 year old gentleman with history of former tobacco use, MARÍA, HLD, HTN, GERD, chronic interstitial lung disease, bilateral centrilobular emphysema, chronic hypoic respiratory failure 2/2 pulmonary fibrosis & bronchiectasis who is admitted for acute on chronic hypoxia iso COPD exacerbation IMPRESSION1. Slight progression diffuse innumerable large bilateral lung cysts most pronounced in the lung apices and areas of architectural distortion. Findings may reflect a combination of emphysema and interstitial lung disease. Vinny Vy José Miguel syndrome remains a differential consideration.2. Diffuse mosaic attenuation throughout the lungs consistent with airway trapping.3. Dilated pulmonary trunk measuring up to 3.6 centimeters.4. Ascending aortic ectasia measuring 3.[address] chest results will be discussed with patient at follow-up 6 minute walk test 02/03/2025 showed res ting and exertional hypoxia. Patient had 85% oxygen saturation on room air at rest, required 3 LPM oxygen at rest to maintain oxygen saturation above 90%. Patient required 6 LPM oxygen during ambulation to maintain oxygen saturation above 90%.New prescription for 3 LPM oxygen at rest and 6 LPM oxygen with activity with POC being ordered. Please notify patient regarding oxygen prescription being sent to DME and ensure processing. Notable WBC increase over night with left shift. Transition from levofloxacin to cefepime/flagyl for broader pseudomonal coverage at this time. CXR ordered which revealed progression. Spoke to ID over TT who suspects that the WBC is 2/2 to steroids. Pulm ordered multiple labs including aspergillosis, fungitel, crypto/ histopolasma, coccidoides etc. Patient unable to tolerate bronchoscopy or TU at this time While awaiting next steps will continue broad coverage until final decision made about GOC #Acute on chronic hypoxic respiratory failure #Combined pulmonary fibrosis and emphysema #Nocturnal hypoxia reports only requiring O2 on exertion, however, it appears as of today in EMR oxygen just increased to above CT imaging from December revealed progression of bilateral lungs cysts Continue 4 L oxygen with sleep Continue Anoro daily continue Pulmicort and Perforomist bid Xopenex and ipratropium q6r Recent 6MWT: 3L at rest, 6L on ambulation continue Mucinex o2 goal 88-90% sputum culture with normal ivis Agreed to Palliative consultation given progressive nature of disease and inc reasing o2 demands -no DNR/DNI continuing management until plan for possible hospice #Bacteremia, GPC blood culture: Staph hominis and epidermis repeat blood culture: NGTD ID consulted continue Vancomycin IV day #3 per ID TTE ordered: Vegetation not seen but cannot be excluded, aortic valve sclerosis mild, focal thickening of the aortic valve, vegetation not seen but cannot be excluded, mild aortic root dilatation Cannot pursue TU 2/2 respiratory status #HTN continue lisinopril #Hyponatremia hold hctz, resolved at this time #AAA follows Vascular continue ASA dvt ppx lovenox PCP [facility] Admission and Anticipated Discharge Date Admission Date: February 18, 2025 Subjective Reports desire to go home states he feels frustrated with the progression of his lung disease but notes that he understands it will continue to worsen He states he wants some time to discuss his next steps but is interested in learning more about hospice Physical Exam Constitutional: WD/WN, vitals as above Respiratory: diminished diffusely Cardiovascular: RRR, no murmur, no edema Gastrointestinal (Abdomen): normal bowel sounds, soft, nontender, no hepatosplenomegaly Results & Data Results & Data Vital Signs (Past 12 Hours) Vital Signs Temp Pulse Pulse Resp BP BP Pulse Ox 02/23/25 07:27 36.6 C 90 16 93/67 L 90 02/23/25 07:13 92 H 18 92 02/23/25 05:44 86 02/23/25 03:51 36.8 C 95 H 20 131/80 91 02/23/25 00:29 37.1 C 97 H 20 113/62 91 02/22/25 21:44 93 H 02/22/25 20:21 37.3 C 98 H 20 108/68 90 O2 Del Method O2 Flow Rate 02/23/25 07:27 Nebulizer 02/23/25 07:13 Nasal Cannula 8 02/23/25 05:44 02/23/25 03:51 Nasal Cannula 8 02/23/25 00:29 Nasal Cannula 8 02/22/25 21:44 02/22/25 20:21 Nasal Cannula 5 Laboratory Results Short CBC 02/23/25 Range/Units 06:24 WBC 23.62 H (4.8-10.8) K/ul Hgb 16.8 (14.0-18.0) g/dl Hct 50.0 (42.0-52.0) % Plt Count 277 (130-400) K/uL [facility] 02/23/25 06:24 Sodium 139 Potassium 3.8 Chloride 105 Carbon Dioxide 26 BUN 18 Creatinine 0.85 Glucose 129 H Calcium 8.9 Medications Administered Home Medications Medication Instructions Recorded Confirmed Last Taken lisinopril 10 1 tab PO DAILY 01/26/23 02/18/25 Unknown mg-hydrochlorothiazide 12.5 mg tablet umeclidinium 62.5 mcg-vilanterol 1 inh inhalation DAILY 01/26/23 02/18/25 Unknown 25 mcg/actuation powdr for inhalation (Anoro Ellipta) aspirin 81 mg tablet,delayed 81 mg PO DAILY 02/18/25 02/18/25 Unknown release Active Medications Generic Name Dose Route Start Last Admin Trade Name Freq PRN Reason Stop Dose Admin Albuterol 3 ml 02/20/25 13:00 02/23/25 12:22 Albut/Ipratrop 3mg/0.5mg Neb 3 Ml Vial [facility] 03/22/25 12:59 3 ml Q6R COLLIN Administration Protocol Aspirin 81 mg 02/19/25 09:00 02/23/25 08:20 Aspirin 81 Mg Ectab PO 03/21/25 08:59 81 mg DAILY COLLIN Administration Benzonatate 100 mg 02/21/25 09:00 02/23/25 08:20 Benzonatate 100 Mg Capsule PO 03/23/25 08:59 100 mg TID COLLIN Administration Budesonide 0.5 mg 02/21/25 07:00 02/23/25 07:12 Budesonide 0.5 Mg/2 Ml Vial (Pulmicort) [facility] 03/23/25 06:59 0.5 mg BIDR COLLIN Administration Enoxaparin Sodium 40 mg 02/19/25 09:00 02/23/25 08:20 Enoxaparin Inj 40 Mg/0.4 Ml Syr SQ 03/21/25 08:59 40 mg QAM COLLIN Administration Formoterol Fumarate 20 mcg 02/21/25 07:00 02/23/25 07:12 Formoterol 20 Mcg/2 Ml Vial NEB 03/23/25 06:59 20 mcg BIDR COLLIN Administration Guaifenesin 1,200 mg 02/20/25 21:00 02/23/25 08:19 Guaifenesin 600 Mg Tabcr PO 03/22/25 20:59 1,200 mg Q12 COLLIN Administration Vancomycin HCl 1,500 mg/ 530 mls @ 200 mls/hr 02/22/25 20:00 02/23/25 11:15 Sodium Chloride IV 03/08/25 19:59 Infused Q12H COLLIN Infusion Cefepime HCl 2,000 mg in 20 mls @ 5 mls/min 02/23/25 08:45 02/23/25 09:46 Maxipime 2000mg IV 02/25/25 08:44 5 mls/min Q8H COLLIN Administration Protocol Lactobacillus Acidophilus 1,250 mg 02/20/25 09:00 02/23/25 08:19 Advanced Probiotic 625 Mg Capsule PO 03/22/25 08:59 1,250 mg DAILY COLLIN Administration Levofloxacin 750 mg 02/20/25 12:30 02/22/25 10:14 Levofloxacin 750 Mg Tab PO 02/26/25 12:29 750 mg DAILY@1100 COLLIN Administration Protocol Lisinopril 10 mg 02/19/25 09:00 02/22/25 10:14 Lisinopril 10 Mg Tab PO 03/21/25 08:59 10 mg QAM COLLIN Administration Metronidazole 500 mg 02/23/25 09:00 02/23/25 09:46 Metronidazole 500 Mg Tab PO 02/28/25 08:59 500 mg Q8H COLLIN Administration Protocol Sodium Chloride 4 ml 02/20/25 11:15 02/23/25 07:12 Sodium Chlor 7% 4 Ml Neb NEB 03/22/25 11:14 4 ml BIDR COLLIN Administration
--- NOTE | 2025-02-23 08:29 | Pulmonology Progress Note ---
Date of Service February 23, 2025 Assessment & Plan (1) Pneumonia: Laterality: right Lung location: unspecified part of lung P neumonia type: due to unspecified organism Qualified Code(s): J18.9 - Pneumonia, unspecified organism (2) Chronic hypoxic respiratory failure: (3) Hypoxia: (4) COPD (chronic obstructive pulmonary disease): (5) Pulmonary fibrosis: (6) Pulmonary hypertension: Plan Impression: Juliano Watson is a 69-year-old male with past medical history of ILD, pulmonary fibrosis, bronchiectasis, chronic hypoxic respiratory failure was on 2L with exertion and 4L at night, HTN, HLD, MARÍA, pulmonary hypertension, and GERD; who presented to [facility] on 02/18/2025 with worsening shortness of breath. CT scan demonstrates patchy areas of consolidation. Recommendations: COPD; emphysema; bronchiectasis with pneumonia Continue aggressive bronchodilators. Patient is currently on DuoNebs every 6, budesonide and Perforomist, Mucinex 1200 mg twice a day hypertonic saline nebs. Continue pulmonary toilet strategies. Workup sent to rule out fungal infection. ILD; pulmonary fibrosis/cystic lung disease Appears fairly advanced. Outpatient workup per his outpatient uniform force captain at [facility] Pulmonary hypertension likely WHO class III No indication for pulmonary vasodilators currently. Diuresis as tolerated Acute on chronic hypoxic respiratory failure likely multifactorial Working with respiratory therapy and case management to see if DME can provide a high capacity oxygen concentrator. His home POC can no longer meet his needs. Out of bed to chair as tolerated and ambulate is much as possible. The patient does have mild hypercarbia on his blood gas which is contributing to his hypoxemic respiratory failure. Given his significant bullous disease, noninvasive positive pressure ventilation may be an option in the outpatient setting once he is clinically stable. Recommend follow up with Dr. Jack patient's primary uniform force captain upon discharge. Discussed role of palliative care given his level of symptom and disease burden. Patient is interested and consult ordered. Feel free to contact us with questions or concerns 40 minutes is the time spent reviewing chart, obtaining history, performing physical exam, updating the patient, and bedside nurse. Admission and Anticipated Discharge Date Admission Date: February 18, 2025 Supervising Physician Co-Signing Physician Notes Patient is a 69-year-old male with a history of ILD/COPD, bronchiectasis and chronic hypoxic respiratory failure with home oxygen, obstructive sleep apnea and pulmonary hypertension. The patient was admitted to the hospital 02/18/2025 with worsening shortness of breath. Pulmonary has been following along since 02/20/2025. The patient has had multiple rounds of antibiotics and steroids in the past year. Has had increasing oxygen requirement. He does follow with a uniform force captain (Dr. Jack) in the outpatient setting. CT imaging of the chest was obtained which showed underlying advanced interstitial lung disease with cystic changes, bronchiectasis and new infiltrates most noticeably on the right upper lung zones. Patient was initially on steroids however these were discontinued. The patient was treated with Levaquin with anticipated duration of 10 to 14 days of therapy. The patient had high oxygen requirements. He was treated with pulmonary toilet including nebulizers, hypertonic saline and Acapella/flutter valve. Sputum culture was obtained as the patient had continued green-colored phlegm which showed normal ivis. The patient was noted to have Staph hominis bacteremia which was treated by the primary team. I personally reviewed the CT imaging, do not have any films after 2022 however there is significant infiltrates and continued progression of his underlying interstitial lung disease on his most recent films during this hospital admission. Given his failure to improve with antibiotics there is a concern for fungal infection. Noninvasive fungal workup was ordered. I discussed the findings with the patient at bedside. I discussed his CT imaging and my concerns. I explained to him the risks and benefits of a bronchoscopy and his plan was to discuss it with his family. Palliative care was consulted. They have discussed goals of care with the patient and his family. The patient wants to pursue a more palliative approach to his care. Would ideally not like to be readmitted to the hospital. Discharge recommendations: Would recommend continuing a 10 to 14-day course of antibiotics. Upon discharge the patient will need higher level of oxygen, please ensure that he ambulates with pulse ox to determine what he will need at home prior to discharge. We have ordered a noninvasive fungal workup. May take some time to result. We will follow-up with this in the outpatient setting to see if the patient would like to pursue treatment/further workup if anything comes up abnormal. Upon discharge the patient needs to continue using the Acapella/flutter valve as well as mucolytic's and nebulizers throughout the day to help with mucus clearance. Continue LAMA/LABA/ICS. No further recommendation from pulmonary perspective, will sign off. Please call directly with any questions. Subjective "My breathing feels close to normal for me." Patient continues to require up 8L of oxygen at rest and as much as 10liters with ambulation this am. Patient states his breathing is close to his normal. Patient is coughing up thick green phlegm. Bronchoscopy was discussed with patient but it appears he is going to meet with palliative care today. Will reengage after goals of care discussions. Fungal workup sent to r/o opportunistic infection. Review of Systems 2 Review of Systems: All systems reviewed & are unremarkable except as noted in HPI & below Physical Exam 2 Physical Exam: VITALS: Reviewed. WEIGHT/BMI reviewed. GEN: Stated age appearing, well-developed, NAD. PSYCH: Good Judgment. AOx3. Normal memory, mood, and affect. HEENT -Head: NC/AT; -Eyes: PERRL, EOMI. No discharge or redn ess; -Ears: External ears are normal. -Nose: Normal nares. NECK: Supple, with no masses. CV: RRR, no m/r/g. LUNGS: Clear in upper lobes, fine crackles in bilateral bases. Non bronchospastic. Chest rise symmetrical. Breathing mildly labored. ABD: N/A : N/A SKIN: Warm, well perfused. No skin rashes or abnormal lesions. MSK: No deformities, Normal gait. EXT: No clubbing, cyanosis, or edema. NEURO: Ambulating with no limitations. Normal muscle strength and tone. No focal deficits. Results & Data Results & Data Vital Signs (Past 12 Hours) Vital Signs Temp Pulse Pulse Resp BP BP Pulse Ox 02/23/25 07:27 36.6 C 90 16 93/67 L 90 02/23/25 07:13 92 H 18 92 02/23/25 05:44 86 02/23/25 03:51 36.8 C 95 H 20 131/80 91 02/23/25 00:29 37.1 C 97 H 20 113/62 91 02/22/25 21:44 93 H O2 Del Method O2 Flow Rate 02/23/25 07:27 Nebulizer 02/23/25 07:13 Nasal Cannula 8 02/23/25 05:44 02/23/25 03:51 Nasal Cannula 8 02/23/25 00:29 Nasal Cannula 8 02/22/25 21:44 Laboratory Results 02/23/25 06:24 02/23/25 06:24 Abnormal Lab Results 02/23/25 06:24 WBC 23.62 H RBC 5.06 Hgb 16.8 Hct 50.0 MCV 98.8 MCH 33.2 MCHC 33.6 RDW Std Deviation 53.6 H RDW Coeff of Nyasia 14.6 H Plt Count 277 MPV 10.4 Immature Gran % (Auto) 2.6 Neut % (Auto) 81.9 Lymph % (Auto) 6.3 [place] % (Auto) 8.0 Eos % (Auto) 0.7 Baso % (Auto) 0.5 Neut # (Auto) 19.40 H Lymph # (Auto) 1.49 [place] # (Auto) 1.90 H Eos # (Auto) 0.16 Baso # (Auto) 0.11 Immature Gran # (Auto) 0.61 H Sodium 139 Potassium 3.8 Chloride 105 Carbon Dioxide 26 Anion Gap 8 BUN 18 Creatinine 0.85 Est Cr Clr Drug Dosing 86.4 eGFR 92.90 BUN/Creatinine Ratio 21.2 H Glucose 129 H Calcium 8.9 Phosphorus 3.0 Magnesium 2.2 Diagnostic Findings No recent imaging. PG Care Time/CCT Total # of Minutes Spent Total Time Spent with Patient: Total time spent is greater than 50% in coordination of care (as documented) at patient's floor/unit and/or counseling patient: Coding Level of Care Code 65376 SUB INP/OBS CARE 2/35MIN Diagnoses Pneumonia J18.9 Laterality: right Lung location: unspecified part of lung Pneumonia type: due to unspecified organism Chronic hypoxic respiratory failure J96.11 Hypoxia R09.02 COPD (chronic obstructive pulmonary disease) J44.9 Pulmonary fibrosis J84.10 Pulmonary hypertension I27.20
--- NOTE | 2025-02-23 09:42 | Palliative Care Consultation ---
Date of Consultation February 23, 2025 Assessment & Plan (1) Palliative care by specialist: Met with pt and his S.O. Cassandra Rosario at bedside for ACP from 11:00 - 11:40. Introduced Palliative Medicine and explained our role in advanced care planning, symptom management and navigation through the progression of life limiting disease. Patient and/or family were receptive to palliative services for goals of care discussions. Reviewed we are different from hospice, a home health nurse visiting service. (2) Counseling regarding goals of care: Mr Watson reports that he and Cassandra have been living together for 5 yr but are not . He has two adult children, Sallie and Marquez who live locally and are very active in his life. Mr. Watson declined offer to add his children to conversation telephonically, sharing that they are both at work. We discussed at length the patient's acute and chronic medical conditions, general prognosis, treatment options, and goals of care. Discussed pt's lung disease at length, pt verbalized awareness of ILD as a progressively debilitating disease. 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 We discussed expected trajectory of fibrotic lung disease. Pt shared that he understands that he will have progressively worse lung function and increasing oxygen demand over time. He shared that he does not ever want to be dependent on life support machines. Discussed code status and helped patient understand that CPR is only done after a person has and involves uncomfortable and invasive procedures that, if successful. have high risk of multiple complications including but not limited to rib fractures, pneumo/hemothorax, SHIKHA, ventilator dependence, anoxic brain injury, and jail/permanent cognitive and functional deficits. We discussed that given pt's advanced lung disease, weaning him from a ventilator would likely be a lengthy and difficult process. Pt shared that he would not want resuscitated nor placed on a ventilator for respiratory failure. Cassandra shared that it took her four days to convince the pt to allow her to call an ambulance while he suffered with progressive HEREDIA/SOB. Pt shared that given his advanced disease, he would like to go home, and is unsure that he would return to hospital again. Discussed option of continuing on same course of life prolonging treatment through disease progression vs transition to comfort directed care. Discussed hospice benefit: an interdisciplinary program offered by nurses, nurses aides, social workers, chaplains and a biomedical field service engineer for patients with a terminal condition and a life expectancy of less than 6 months. This is covered by Medicare at 100%/no out of pocket expense to patient and all meds/supplies needed by patient for the reason they are on hospice are paid for/covered by hospice. The goal is assure quality of life of the patient in their home setting (home, penitentiary, inpatient hospice setting) by providing symptoms management, psychosocial and spiritual support. However, they cannot offer 24 hours care and if the family is unable to provide that care, they will have to consider personal care with out of pocket cost vs. penitentiary placement. We discussed the goals of hospice as a patient service and the goals of care; we discussed EOL trajectories and transitions erika the emotional impact of realizing mortality as a concrete reality from prior abstract considerations. Pt was reassured that no matter where they are along this trajectory, they are not alone - their medical team will remain by their side through their journey. Discussed the pros/cons of accepting help when especially weakened and distressed by pain-which would also help provide relief/decrease caregiver burden/strain. Pt stated the he does "not see point in returning to hospital if (he) cannot not getting better". He shared that he would like time to talk with his son and daughter about hospice care. He shared that they "know how I have been getting sicker and there is nothing to be done to make it better". Mr. Watson shared intent to call his children this evening and let them know how advanced his disease is. He shared that he has been letting them know that things "were getting worse" over the past several months and does not expect them to be surprised. We made plan to meet again at 10am on 02/24 to further discuss GOC. (3) Advance directive discussed with patient: Patient currently exhibits decisional capacity and does not have written do cumentation of his wishes concerning his chosen proxy for medical decisions. Per PA [id number], in absence of written documentation of patient wishes, pt's proxy for medical decisions would be his adult children Sallie and Marquez Watson. Pt verbalized that he trusts his SO Cassandra Rosario to serve as primary proxy for medical decisions in the event he lacks decisional capacity. Cassandra was present for this discussion and shared hat she is not comfortable serving as proxy with his two children so active in his life. She encouraged pt to use his son Marquez Watson and/or daughter Sallie as HCPOA. Pt does not currently require a proxy for medical decisions. Mr Watson agreed to make his adult children joint HCPOA. I encouraged Mr Watson to discuss his wishes/GOC and the role of HCPOA with his children and provided blank AD paperwork for him to review. Plan DNR/DNI GOC discussion planned for 10am on 02/24/25. History of Present Illness Reason for Consultation: goals of care Requesting Physician: Ngoc Nuñez MD Attending Physician: Ngoc Nuñez MD History of Present Illness Juliano Watson is a 69-year-old male with past medical history of ILD, pulmonary fibrosis, bronchiectasis, chronic hypoxic respiratory failure was on 2L with exertion and 4L at night, HTN, HLD, MARÍA, pulmonary hypertension, and GERD; who presented to [facility] on 02/18/2025 with worsening shortness of breath. CT scan demonstrates patchy areas of consolidation. Pt was admitted for medical management. Allergies Allergy/AdvReac Type Severity Reaction Status Date / Time amoxicillin Allergy Unknown Hives Verified 02/18/25 20:20 Home Medications Medication Instructions Recorded Confirmed Type lisinopril 10 1 tab PO DAILY 01/26/23 02/18/25 History mg-hydrochlorothiazide 12.5 mg tablet umeclidinium 62.5 mcg-vilanterol 1 inh inhalation DAILY 01/26/23 02/18/25 History 25 mcg/actuation powdr for inhalation (Anoro Ellipta) aspirin 81 mg tablet,delayed 81 mg PO DAILY 02/18/25 02/18/25 History release Patient History Surgical History History of colonoscopy Family History Sister Breast cancer Mother Diabetes Social History Smoking Status: Former smoker Hx Alcohol Use: No Hx Substance Use: No Preferred Language: Yemeni Communication Ability: Effective Medical Surgery Nurse Required: No Beliefs That Will Affect Care: None Current Living Situation: Spouse Feels Safe at Home: Yes Assistive Devices: Cane and Oxygen - Continuous Review of Systems Review of Systems: All systems reviewed & are unremarkable except as noted in HPI & below Respiratory: + cough, + dyspnea on exertion and + whe ezing Physical Exam Constitutional: + ill appearing (Chronically ill in appe arance without acute distress) Eyes: PERRL, conjunctivae normal, anicteric sclerae Neck: trachea midline Respiratory: + labored breathing, + cough, able to sp eak in complete sentences and + audible wheezes Auscultation: + diminished lung sounds (Mildly diminished breath sounds bilaterally at the base); no crackles and no rales Cardiovascular: Rate/Rhythm: regular rate Heart Sounds: normal S1 and normal S2; no murmur Extremities: no edema Gastrointestinal (Abdomen): normal bowel sounds, soft, nontender, no hepatosplenomegaly Neurologic: PERRL, EOMI, accommodation nl, no face palsy, no dysarthria Results & Data Vital Signs (Past 12 Hours) Vital Signs Temp Pulse Pulse Resp BP BP Pulse Ox 02/23/25 08:41 02/23/25 07:27 36.6 C 90 16 93/67 L 90 02/23/25 07:13 92 H 18 92 02/23/25 07:00 02/23/25 05:44 86 02/23/25 03:51 36.8 C 95 H 20 131/80 91 02/23/25 00:29 37.1 C 97 H 20 113/62 91 02/22/25 21:44 93 H Pulse Ox O2 Del Method O2 Del Method O2 Flow Rate O2 Flow Rate 02/23/25 08:41 Nasal Cannula 8 02/23/25 07:27 Nebulizer 02/23/25 07:13 Nasal Cannula 8 02/23/25 07:00 89 L High Flow Nasal Cannula 8 02/23/25 05:44 02/23/25 03:51 Nasal Cannula 8 02/23/25 00:29 Nasal Cannula 8 02/22/25 21:44 Laboratory Results Abnormal lab results 02/23/25 Range/Units 06:24 WBC 23.62 H (4.8-10.8) K/ul RDW Std Deviation 53.6 H (36.4-46.3) fL RDW Coeff of Nyasia 14.6 H (11.5-14.5) % Neut # (Auto) 19.40 H (1.40-6.50) K/uL [place] # (Auto) 1.90 H (0.11-0.59) K/uL Immature Gran # (Auto) 0.61 H (0.01-0.20) K/uL BUN/Creatinine Ratio 21.2 H (10-20) Glucose 129 H (70-99(Fasting)) mg/dl Diagnostic Findings Chest CTA 02/18/25 21:51 Exam(s): CTA CHEST IV Amt: 116ml EXAM: CT Chest With Intravenous Contrast CLINICAL HISTORY: sob. TECHNIQUE: Axial computed tomographic images of the chest with intravenous contrast. CTDI is 27.25 mGy and DLP is 936.47 mGy-cm. Automated exposure control was utilized for the study. A dose lowering technique was utilized adhering to the principles of ALARA. COMPARISON: No relevant prior studies available. FINDINGS: Limitations: There is diffuse respiratory artifact, which degrades image quality throughout the examination. Pulmonary arteries: Accounting for limitations with diffuse extensive respiratory artifact, there is no large/central saddle pulmonary embolism. Most very distal subsegmental pulmonary artery segments are of very limited to nondiagnostic quality. Aorta: No acute findings. No thoracic aortic aneurysm. Lungs: Advanced emphysema with architectural loss and extensive distortion with diffuse bullous disease, similar in morphologic appearance to the previous examination. However, there is abnormal fluid along the posteromedial aspect of the previously noted large conglomerate bulla in the right upper lobe, new from the previous examination. Increased attenuation of the lower lobes with similar honeycombing. Suspect basilar atelectasis. Pleural space: Unremarkable. No significant effusion. No pneumothorax. Heart: The cardiac chambers are prominent. There is asymmetric dilation of the right atrium and ventricle with mild reflux of contrast into the intrahepatic IVC. Prominent coronary artery calcification. Bones/joints: No acute fracture. No dislocation. Soft tissues: Unremarkable. Lymph nodes: Diffuse paratracheal and precarinal lymph nodes, predominantly subcentimeter in size. However, there is a prominent lymph node anterior to the right proximal mainstem bronchus measuring 14 mm. IMPRESSION: 1. Accounting for limitations with diffuse extensive respiratory artifact, there is no large/central saddle pulmonary embolism. Most very distal subsegmental pulmonary artery segments are of very limited to nondiagnostic quality. No 3D or MIP imaging provided. 2. Advanced emphysema with architectural loss and extensive distortion with diffuse bullous disease, similar in morphologic appearance to the previous examination. However, there is abnormal fluid along the posteromedial aspect of the previously noted large conglomerate bulla in the right upper lobe, new from the previous examination. Favor acute infection within this region. 3. The cardiac chambers are prominent. There is asymmetric dilation of the right atrium and ventricle with mild reflux of contrast into the intrahepatic IVC. This is a nonspecific finding but suggests right heart strain. Electronically signed by: Rodrigo London MD 02/19/25 00:05 AM Medications Administered Current Inpatient Medications Acetaminophen (Acetaminophen 325 Mg Tab) 650 mg PO QID PRN PRN Reason: pain/fever Stop: 03/20/25 21:50 Albuterol (Albut/Ipratrop 3mg/0.5mg Neb 3 Ml Vial) 3 ml NEB Q6R [facility]; Protocol Stop: 03/22/25 12:59 Last Admin: 02/23/25 07:12 Dose: Not Given Aspirin (Aspirin 81 Mg Ectab) 81 mg PO DAILY [facility] Stop: 03/21/25 08:59 Last Admin: 02/23/25 08:20 Dose: 81 mg Benzonatate (Benzonatate 100 Mg Capsule) 100 mg PO TID [facility] Stop: 03/23/25 08:59 Last Admin: 02/23/25 08:20 Dose: 100 mg Budesonide (Budesonide 0.5 Mg/2 Ml Vial (Pulmicort)) 0.5 mg NEB BIDR [facility] Stop: 03/23/25 06:59 Last Admin: 02/23/25 07:12 Dose: 0.5 mg Enoxaparin Sodium (Enoxaparin Inj 40 Mg/0.4 Ml Syr) 40 mg SQ QAM [facility] Stop: 03/21/25 08:59 Last Admin: 02/23/25 08:20 Dose: 40 mg Formoterol Fumarate (Formoterol 20 Mcg/2 Ml Vial) 20 mcg NEB BIDR [facility] Stop: 03/23/25 06:59 Last Admin: 02/23/25 07:12 Dose: 20 mcg Guaifenesin (Guaifenesin 600 Mg Tabcr) 1,200 mg PO Q12 [facility] Stop: 03/22/25 20:59 Last Admin: 02/23/25 08:19 Dose: 1,200 mg Promethazine HCl (Phenergan) 6.25 mg in 50.25 mls @ 201 mls/hr IV Q6H PRN PRN Reason: Nausea And Vomiting Stop: 03/20/25 21:50 Vancomycin HCl 1,500 mg/ (Sodium Chloride) 530 mls @ 200 mls/hr IV Q12H [facility] Stop: 03/08/25 19:59 Last Admin: 02/23/25 08:34 Dose: 200 mls/hr Cefepime HCl (Maxipime 2000mg) 2,000 mg in 20 mls @ 5 mls/min IV Q8H [facility]; Protocol Stop: 02/25/25 08:44 Lactobacillus Acidophilus (Advanced Probiotic 625 Mg Capsule) 1,250 mg PO DAILY [facility] Stop: 03/22/25 08:59 Last Admin: 02/23/25 08:19 Dose: 1,250 mg Levalbuterol HCl (Levalbuterol 1.25 Mg/3 Ml Neb) 1.25 mg NEB Q6R PRN PRN Reason: Wheezing Stop: 03/21/25 00:59 Levofloxacin (Levofloxacin 750 Mg Tab) 750 mg PO DAILY@1100 [facility]; Protocol Stop: 02/26/25 12:29 Last Admin: 02/22/25 10:14 Dose: 750 mg Lisinopril (Lisinopril 10 Mg Tab) 10 mg PO QAM [facility] Stop: 03/21/25 08:59 Last Admin: 02/22/25 10:14 Dose: 10 mg Metronidazole (Metronidazole 500 Mg Tab) 500 mg PO Q8H [facility]; Protocol Stop: 02/28/25 08:59 Miscellaneous Information (Vancomycin Consult Active) 1 each N/A UD PRN PRN Reason: Consult Stop: 03/22/25 12:33 Oxycodone HCl (Oxycodone Hcl Ir 5 Mg Tab (Immediate Release)) 5 mg PO Q4H PRN PRN Reason: Pain Stop: 03/04/25 21:52 Sodium Chloride (Sodium Chlor 7% 4 Ml Neb) 4 ml NEB BIDR [facility] Stop: 03/22/25 11:14 Last Admin: 02/23/25 07:12 Dose: 4 ml PG Care Time/CCT Total # of Minutes Spent Total Time Spent with Patient: Total time spent is greater than 50% in coordination of care (as documented) at patient's floor/unit and/or counseling patient: Advanced Care Planning 00524 Advanced Care Planning 30 Min C[place] [address] IN/OBS CONSULT LVL 4,60M Patient Type Established Medical Decision Making Moderate Complexity Diagnoses Palliative care by specialist Z51.5 Counseling regarding goals of care Z71.89 Advance directive discussed with patient Z71.89 Additional Codes Advanced Care Planning - 35500 Advanced Care Planning 30 Min: 48065 Advanced Care Planning 30 Min ([id number])
[2025-02-23] MEDS: metroNIDAZOLE 500 MG TAB PO SCH (09:46)
[2025-02-23] MEDS: CEFEPIME 2000MG 2,000 MG/20 ML SYR IV SCH (09:46)
[2025-02-23] MEDS: SODIUM CHLORIDE 0.9% 500 ML IV ONE (09:48)
--- NOTE | 2025-02-23 10:26 | Cardiology Consultation ---
Date of Consultation February 23, 2025 Assessment & Plan (1) Coag negative Staphylococcus bacteremia: (2) Chronic hypoxic respiratory failure: (3) Pneumonia: (4) Hypoxia: 69-year-old male with history of underlying advanced cystic lung disease presented to the hospital 5 days ago with progressive shortness of breath does not improve with an outpatient course of antibiotics. Patient found to have hypoxia and is still on a higher oxygen requirement than his typical baseline supplementation. CT angiogram performed this hospital stay on 02/19/2025 revealed diffuse bullous disease. Mr Watson and I discussed the rationale for proceding with transesophageal echocardiogram. He and I share concerns about his suitability for conscious sedation given his respiratory status. At present, I believe that the risk of respiratory compromise sedation outweighs the benefits of the procedure. Would consider modifying antibiotic treatment plan as such and avoiding TU due to risks at that this time. Case discussed with Dr Nuñez. I spent a total of 60 minutes on the date of service in preparation, delivery, and documentation of the care provided to this patient, excluding any time spent in the performance of separately billed services. Radha Quintanilla DO History of Present Illness Attending Physician: Ngoc Nuñez MD History of Present Illness Juliano Watson is a 69 year old male seen in cardiology consultation per the request of Dr Nuñez for the evaluation of bacteremia and consideration of transesophageal echocardiogram. Patient initially presented and was admitted via the emergency room on 02/18/2025 with complaints of progressive shortness of breath and generalized malaise over the last few weeks. He has severe underlying emphysema/cystic lung disease and is on 4 L/min nasal cannula with sleep at baseline and 2 L/min during the day. Has had progressive increase in his oxygen requirement and has been treated during his hospital stay for complicated pneumonia. He has made slow but steady improvement. Currently his pulse oximetry this morning was 90% on 8 L/min nasal cannula supplemental oxygen. On the date of admission, 02/18/2025 the patient was found to have 2 out of 2 blood cultures abnormal positive for Staphylococcus hominis and Staphylococcus epidermidis. Two additional cultures were obtained after initiation of antibiotics on 02/19/2025 with no growth thus far and they were repeated again today, 02/23/2025. Patient denies any fevers or chills at present. Allergies Allergy/AdvReac Type Severity Reaction Status Date / Time amoxicillin Allergy Unknown Hives Verified 02/18/25 20:20 Home Medications Medication Instructions Recorded Confirmed Type lisinopril 10 1 tab PO DAILY 01/26/23 02/18/25 History mg-hydrochlorothiazide 12.5 mg tablet umeclidinium 62.5 mcg-vilanterol 1 inh inhalation DAILY 01/26/23 02/18/25 History 25 mcg/actuation powdr for inhalation (Anoro Ellipta) aspirin 81 mg tablet,delayed 81 mg PO DAILY 02/18/25 02/18/25 History release Patient History Surgical History History of colonoscopy Family History Sister Breast cancer Mother Diabetes Social History Smoking Status: Former smoker Hx Alcohol Use: No Hx Substance Use: No Preferred Language: Micronesian Communication Ability: Effective 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 Beliefs That Will Affect Care: None Current Living Situation: Spouse Feels Safe at Home: Yes Assistive Devices: Cane and Oxygen - Continuous Review of Systems Review of Systems: All systems reviewed & are unremarkable except as noted in HPI & below Physical Exam Constitutional: + ill appearing (Chronically ill in appe arance without acute distress) Eyes: PERRL, conjunctivae normal, anicteric sclerae Neck: trachea midline Respiratory: + labored breathing; no cough and no aud ible wheezes Auscultation: + diminished lung sounds (Mildly diminished breath sounds bilate rally at the base); no crackles and no rales Cardiovascular: Rate/Rhythm: regular rate Heart Sounds: normal S1 and norm al S2; no murmur Extremities: no edema Gastrointestinal (Abdomen): normal bowel sounds, soft, nontender, no hepatosplenomegaly Neurologic: PERRL, EOMI, accommodation nl, no face palsy, no dysarthria Results & Data Vital Signs (Past 12 Hours) Vital Signs Temp Pulse Pulse Resp BP BP Pulse Ox 02/23/25 08:41 02/23/25 07:27 36.6 C 90 16 93/67 L 90 02/23/25 07:13 92 H 18 92 02/23/25 07:00 02/23/25 05:44 86 02/23/25 03:51 36.8 C 95 H 20 131/80 91 02/23/25 00:29 37.1 C 97 H 20 113/62 91 Pulse Ox O2 Del Method O2 Del Method O2 Flow Rate O2 Flow Rate 02/23/25 08:41 Nasal Cannula 8 02/23/25 07:27 Nebulizer 02/23/25 07:13 Nasal Cannula 8 02/23/25 07:00 89 L High Flow Nasal Cannula 8 02/23/25 05:44 02/23/25 03:51 Nasal Cannula 8 02/23/25 00:29 Nasal Cannula 8 Laboratory Results CBC 02/23/25 Range/Units 06:24 WBC 23.62 H (4.8-10.8) K/ul RBC 5.06 (4.70-6.10) M/uL Hgb 16.8 (14.0-18.0) g/dl Hct 50.0 (42.0-52.0) % Plt Count 277 (130-400) K/uL Neut # (Auto) 19.40 H (1.40-6.50) K/uL Lymph # (Auto) 1.49 (1.20-3.40) K/uL [place] # (Auto) 1.90 H (0.11-0.59) K/uL Eos # (Auto) 0.16 (0.00-0.50) K/uL Baso # (Auto) 0.11 (0.00-0.20) K/uL Comprehensive Metabolic Panel 02/23/25 Range/Units 06:24 Sodium 139 (136-145) mmol/L Potassium 3.8 (3.5-5.1) mmol/L Chloride 105 (98-107) mmol/L Carbon Dioxide 26 (21-32) mmol/L BUN 18 (6-23) mg/dl Creatinine 0.85 (0.6-1.4) mg/dl Glucose 129 H (70-99(Fasting)) mg/dl Calcium 8.9 (8.6-10.3) mg/dl Diagnostic Findings EKG performed 02/18/2025 at 2025 and interpreted independently, sinus tachycardia 100 beats per, age-indeterminate inferior infarct cannot be excluded, nonspecific repolarization abnormality. Summary transthoracic echocardiogram performed 02/21/2025: Mild concentric left ventricular hypertrophy, LVEF normal at 65 to 70% Mild aortic valve sclerosis without stenosis Focal thickening of the noncoronary cusp of the aortic valve. Vegetation not seen but cannot be excluded. Mild aortic root dilatation observed with measurement of 4.2 cm. PG Care Time/CCT Total # of Minutes Spent Total Time Spent with Patient: Total time spent is greater than 50% in coordination of care (as documented) at patient's floor/unit and/or counseling patient: Coding Level of Care Code 35359 IN/OBS CONSULT LVL 4,60M Diagnoses Coag negative Staphylococcus bacteremia R78.81; B95.7 Chronic hypoxic respiratory failure J96.11 Pneumonia J18.9 Laterality: right Lung location: unspecified part of lung Pneumonia type: due to unspecified organism Hypoxia R09.02 (3) Pneumonia Laterality: right Lung location: unspecified part of lung Pneumonia type: due to unspecified organism Qualified Code(s): J18.9 - Pneumonia, unspecified organism
--- NOTE | 2025-02-23 10:27 | XRay Report ---
XR chest 1V portable CLINICAL HISTORY: continued hypoxia COMPARISON STUDY: 02/20/2025 FINDINGS: Heart size and pulmonary vasculature are normal. Stable emphysema. There is increased patch y consolidation at the right lower lung and increased stranding at the left lung base. No pleural eff usion or pneumothorax. IMPRESSION: Increased pneumonia in the lower lungs. ACT 112: Negative or not required by law. Electronically signed by: Prince Iqbal M.D. 02/23/2025 10:26 AM
[2025-02-23] MEDS: ACETAMINOPHEN 325 MG TAB PO PRN (22:21)
[2025-02-24 04:40] LABS: Hematocrit (blood only) 49.7 % (42.0-52.0); Hemoglobin 16.6 g/dl (14.0-18.0); Mean Corpuscular Hemoglobin 33.1 pg (25.0-34.0); Mean Corpuscular Volume 99.2 fL (80.0-100.0); Platelet Count 269 K/uL (130-400); RDW Standard Deviation 53.3 fL (36.4-46.3); Red Blood Count 5.01 M/uL (4.70-6.10); White Blood Count 20.87 K/ul (4.8-10.8)
[2025-02-24 04:55] LABS: Anion Gap 7.0 (3-11); Blood Urea Nitrogen 21.0 mg/dl (6-23); Calcium 8.7 mg/dl (8.6-10.3); Carbon Dioxide 23.0 mmol/L (21-32); Chloride 107.0 mmol/L (98-107); Creatinine Clr Calc Pharmacy 89.6 ml/min; Glucose 143.0 mg/dl (70-99(Fasting)); Magnesium 2.2 mg/dl (1.7-2.4); Potassium 3.8 mmol/L (3.5-5.1); Sodium 137.0 mmol/L (136-145)
[2025-02-24] MEDS: VANCOMYCIN LEVEL ONE (08:46)
--- NOTE | 2025-02-24 11:10 | Pharmacy Report ---
Pharmacy PK ABX Note - Date of Service February 24, 2025 - Assessment and Plan Assessment * 69 year old M receiving vancomycin for treatment of bacteremia and cefepime/metronidazole for CAP. * He has a history of chronic interstitial lung disease, bilateral centrilobular emphysema, chronic hypoxic respiratory failure 2/2 pulmonary fibrosis & bronchiectasis. * He was admitted 02/18 for acute on chronic respiratory failure and started on po levofloxacin. Transitioned to cefepime and metronidazole 02/23. * Blood cultures drawn 02/18 were positive and vancomycin was added 02/20. * ID has been consulted but is no longer following * Pertinent microbiologic data includes: * Blood cultures from 02/18 grew 2/2 Staph hominis, and 1/2 Staph epi. * Blood cultures x 2 from 02/19 NGTD * Sputum culture from 02/20 NGTD * MRSA nasal swab from 02/18 is negative Plan Vancomycin * Target AUC/ANTONIO of 400-600 mg/L.hr * Random level of 13.5 mcg/mL associated with a therapeutic AUC of 475 mg/L.hr * Continue vancomycin to 1500 mg IV q12h * Random level ordered for: 02/27/25 w AM labs Pharmacy will continue to follow and will adjust dose/frequency as necessary. Thank you. Pharmacy has transitioned to AUC monitoring for vancomycin. AUC/ANTONIO is the preferred PK/PD target and is associated with decreased risk of nephrotoxicity compared to traditional trough targets.
--- NOTE | 2025-02-24 12:07 | Palliative Care Progress Note ---
Date of Service February 24, 2025 Assessment & Plan (1) Palliative care by specialist: Plan: Palliative care will continue to follow for ongoing goals of care discussions and patient/family support. (2) Counseling regarding goals of care: Plan: Met with pt at bedside from 10:00 - 10:32, no visitors present. Reviewed/summarized previous ACP discussion held yesterday. Pt shared that he was unable to discuss plans with his family last evening. He shared that he has decided that he would like to go home and not return to the hospital again, and is hopeful that having the hospice team involved will relieve some of the burden of care giving from his S.O. Pt presented me with a [employer] POLST form that he completed over night and needed HCP signature. I reviewed this with him and signed it. Original placed in chart and copy sent to medical records. Pt shared plan to meet with his family (son, daughter, and significant other) this evening after 1730 (time unclear, whenever they all arrive) to discuss plan for hospice care. We discussed that his current oxygen demand may preclude him being able to go home with hospice. We discussed possible SNF placement or if he decompensates further possible need to remain in hospital for hospice care if his oxygen demand were to increase further. Pt states that he will continue to hope for discharge to home, but understands that may not be feasible given his advanced disease. Pt encouraged that we continue current course of care with hopes of optimizing pulmonary function to permit discharge to home. He shared that he has spoken with both of his children and let them know that his "lung disease is pretty bad", but would like to have a family meeting with HCP to answer their questions prior to transition to comfort directed care. He shared that he has decided for comfort directed care, but wants to give them the opportunity to discuss with the health care team and ask questions. Dr Nuñez (attending) made aware of plan for family meeting and will be available until 7pm. Pt aware and if family unable to come to hospital this afternoon, he will set time for in person / phone conference tomorrow before 5pm. (3) Need for comfort care: Plan: pt plans to transition to [employer] after he has discussed with his children, he is hopeful to optimize lung function while admitted to allow for discharge to home with hospice. Plan as above; discussed with attending Dr Nuñez. Admission and Anticipated Discharge Date Admission Date: February 18, 2025 Subjective Assessed pt at bedside, no visitors present. Pt sitting upright in bed, tachypneic with noted accessory muscle use on 8L supplemental via nc. Pt denies discomfort, states breathing is "not too bad". Pt continues to require 8LNC with increased oxygen demand with any exertion. Review of Systems Review of Systems: All systems reviewed & are unremarkable except as noted in HPI & below Respiratory: + cough, + dyspnea on exertion and + whe ezing Physical Exam Constitutional: + ill appearing (Chronically ill in appe arance without acute distress) Eyes: PERRL, conjunctivae normal, anicteric sclerae Neck: trachea midline Respiratory: + labored breathing, + cough, able to sp eak in complete sentences and + audible wheezes Auscultation: + diminished lung sounds (Mildly diminished breath sounds bilaterally at the base); no crackles and no rales Cardiovascular: Rate/Rhythm: regular rate Heart Sounds: normal S1 and normal S2; no murmur Extremities: no edema Gastrointestinal (Abdomen): normal bowel sounds, soft, nontender, no hepatosplenomegaly Neurologic: PERRL, EOMI, accommodation nl, no face palsy, no dysarthria Results & Data Vital Signs (Past 12 Hours) Vital Signs Temp Pulse Pulse Resp BP Pulse Ox Pulse Ox 02/24/25 11:21 37.7 C H 96 H 18 115/69 94 02/24/25 09:09 02/24/25 07:42 37.1 C 97 H 18 105/69 88 L 02/24/25 07:17 93 H 02/24/25 07:16 92 H 18 90 02/24/25 07:00 90 02/24/25 02:57 36.9 C 88 16 103/62 90 O2 Del Method O2 Del Method O2 Flow Rate O2 Flow Rate 02/24/25 11:21 Nasal Cannula 8 02/24/25 09:09 Nasal Cannula 8 02/24/25 07:42 Nasal Cannula 8 02/24/25 07:17 02/24/25 07:16 Nasal Cannula 8 02/24/25 07:00 High Flow Nasal Cannula 8 02/24/25 02:57 Nasal Cannula 8 Laboratory Results Abnormal lab results 02/24/25 Range/Units 04:22 WBC 20.87 H (4.8-10.8) K/ul RDW Std Deviation 53.3 H (36.4-46.3) fL BUN/Creatinine Ratio 25.6 H (10-20) Glucose 143 H (70-99(Fasting)) mg/dl Diagnostic Findings Chest CTA 02/18/25 21:51 Exam(s): CTA CHEST IV Amt: 116ml EXAM: CT Chest With Intravenous Contrast CLINICAL HISTORY: sob. TECHNIQUE: Axial computed tomographic images of the chest with intravenous contrast. CTDI is 27.25 mGy and DLP is 936.47 mGy-cm. Automated exposure control was utilized for the study. A dose lowering technique was utilized adhering to the principles of ALARA. COMPARISON: No relevant prior studies available. FINDINGS: Limitations: There is diffuse respiratory artifact, which degrades image quality throughout the examination. Pulmonary arteries: Accounting for limitations with diffuse extensive respiratory artifact, there is no large/central saddle pulmonary embolism. Most very distal subsegmental pulmonary artery segments are of very limited to nondiagnostic quality. Aorta: No acute findings. No thoracic aortic aneurysm. Lungs: Advanced emphysema with architectural loss and extensive distortion with diffuse bullous disease, similar in morphologic appearance to the previous examination. However, there is abnormal fluid along the posteromedial aspect of the previously noted large conglomerate bulla in the right upper lobe, new from the previous examination. Increased attenuation of the lower lobes with similar honeycombing. Suspect basilar atelectasis. Pleural space: Unremarkable. No significant effusion. No pneumothorax. Heart: The cardiac chambers are prominent. There is asymmetric dilation of the right atrium and ventricle with mild reflux of contrast into the intrahepatic IVC. Prominent coronary artery calcification. Bones/joints: No acute fracture. No dislocation. Soft tissues: Unremarkable. Lymph nodes: Diffuse paratracheal and precarinal lymph nodes, predominantly subcentimeter in size. However, there is a prominent lymph node anterior to the right proximal mainstem bronchus measuring 14 mm. IMPRESSION: 1. Accounting for limitations with diffuse extensive respiratory artifact, there is no large/central saddle pulmonary embolism. Most very distal subsegmental pulmonary artery segments are of very limited to nondiagnostic quality. No 3D or MIP imaging provided. 2. Advanced emphysema with architectural loss and extensive distortion with diffuse bullous disease, similar in morphologic appearance to the previous examination. However, there is abnormal fluid along the posteromedial aspect of the previously noted large conglomerate bulla in the right upper lobe, new from the previous examination. Favor acute infection within this region. 3. The cardiac chambers are prominent. There is asymmetric dilation of the right atrium and ventricle with mild reflux of contrast into the intrahepatic IVC. This is a nonspecific finding but suggests right heart strain. Electronically signed by: Rodrigo London MD 02/19/25 00:05 AM Chest X-Ray 02/23/25 08:18 XR chest 1V portable CLINICAL HISTORY: continued hypoxia COMPARISON STUDY: 02/20/2025 FINDINGS: Heart size and pulmonary vasculature are normal. Stable emphysema. There is increased patchy consolidation at the right lower lung and increased stranding at the left lung base. No pleural effusion or pneumothorax. IMPRESSION: Increased pneumonia in the lower lungs. ACT 112: Negative or not required by law. Electronically signed by: Prince Iqbal M.D. 02/23/2025 10:26 AM Medications Administered Current Inpatient Medications Acetaminophen (Acetaminophen 325 Mg Tab) 650 mg PO QID PRN PRN Reason: pain/fever Stop: 03/20/25 21:50 Last Admin: 02/24/25 11:38 Dose: 650 mg Albuterol (Albut/Ipratrop 3mg/0.5mg Neb 3 Ml Vial) 3 ml NEB Q6R [facility]; Protocol Stop: 03/22/25 12:59 Last Admin: 02/24/25 07:15 Dose: Not Given Aspirin (Aspirin 81 Mg Ectab) 81 mg PO DAILY [facility] Stop: 03/21/25 08:59 Last Admin: 02/24/25 08:47 Dose: 81 mg Benzonatate (Benzonatate 100 Mg Capsule) 100 mg PO TID [facility] Stop: 03/23/25 08:59 Last Admin: 02/24/25 09:02 Dose: Not Given Budesonide (Budesonide 0.5 Mg/2 Ml Vial (Pulmicort)) 0.5 mg NEB BIDR [facility] Stop: 03/23/25 06:59 Last Admin: 02/24/25 07:15 Dose: 0.5 mg Enoxaparin Sodium (Enoxaparin Inj 40 Mg/0.4 Ml Syr) 40 mg SQ QAM [facility] Stop: 03/21/25 08:59 Last Admin: 02/24/25 08:43 Dose: 40 mg Formoterol Fumarate (Formoterol 20 Mcg/2 Ml Vial) 20 mcg NEB BIDR [facility] Stop: 03/23/25 06:59 Last Admin: 02/24/25 07:15 Dose: 20 mcg Guaifenesin (Guaifenesin 600 Mg Tabcr) 1,200 mg PO Q12 [facility] Stop: 03/22/25 20:59 Last Admin: 02/24/25 08:45 Dose: 1,200 mg Hydrocodone Bit/Homatropine Methylb (Hydrocodone/Homatropine Syrup 5mg/1.5mg 5ml Udp) 5 ml PO Q6H PRN PRN Reason: Cough Stop: 03/09/25 14:12 Last Admin: 02/23/25 19:03 Dose: 5 ml Promethazine HCl (Phenergan) 6.25 mg in 50.25 mls @ 201 mls/hr IV Q6H PRN PRN Reason: Nausea And Vomiting Stop: 03/20/25 21:50 Vancomycin HCl 1,500 mg/ (Sodium Chloride) 530 mls @ 200 mls/hr IV Q12H [facility] Stop: 03/08/25 19:59 Last Infusion: 02/24/25 11:43 Dose: Infused Cefepime HCl (Maxipime 2000mg) 2,000 mg in 20 mls @ 5 mls/min IV Q8H [facility]; Protocol Stop: 02/25/25 08:44 Last Admin: 02/24/25 08:46 Dose: 5 mls/min Lactobacillus Acidophilus (Advanced Probiotic 625 Mg Capsule) 1,250 mg PO DAILY [facility] Stop: 03/22/25 08:59 Last Admin: 02/24/25 08:47 Dose: 1,250 mg Levalbuterol HCl (Levalbuterol 1.25 Mg/3 Ml Neb) 1.25 mg NEB Q6R PRN PRN Reason: Wheezing Stop: 03/21/25 00:59 Levofloxacin (Levofloxacin 750 Mg Tab) 750 mg PO DAILY@1100 [facility]; Protocol Stop: 02/26/25 12:29 Last Admin: 02/22/25 10:14 Dose: 750 mg Lisinopril (Lisinopril 10 Mg Tab) 10 mg PO QAM [facility] Stop: 03/21/25 08:59 Last Admin: 02/22/25 10:14 Dose: 10 mg Metronidazole (Metronidazole 500 Mg Tab) 500 mg PO Q8H [facility]; Protocol Stop: 02/28/25 08:59 Last Admin: 02/24/25 08:48 Dose: 500 mg Miscellaneous Information (Vancomycin Consult Active) 1 each N/A UD PRN PRN Reason: Consult Stop: 03/22/25 12:33 Oxycodone HCl (Oxycodone Hcl Ir 5 Mg Tab (Immediate Release)) 5 mg PO Q4H PRN PRN Reason: Pain Stop: 03/04/25 21:52 Sodium Chloride (Sodium Chlor 7% 4 Ml Neb) 4 ml NEB BIDR [facility] Stop: 03/22/25 11:14 Last Admin: 02/24/25 07:15 Dose: Not Given PG Care Time/CCT Total # of Minutes Spent Total Time Spent with Patient: Total time spent is greater than 50% in coordination of care (as documented) at patient's floor/unit and/or counseling patient: Advanced Care Planning 54328 Advanced Care Planning 30 Min C[place] [address] SUB INP/OBS CARE 2/35MIN Patient Type Established Medical Decision Making Moderate Complexity Diagnoses Palliative care by specialist Z51.5 Counseling regarding goals of care Z71.89 Need for comfort care Additional Codes Advanced Care Planning - 99796 Advanced Care Planning 30 Min: 63919 Advanced Care Planning 30 Min ([id number])
[2025-02-24] MEDS: FUROSEMIDE INJ 20 MG/2 ML VIAL IV ONE (12:16)
[2025-02-24] MEDS: POTASSIUM CHLORIDE CRTAB 20 MEQ TABCR PO STA (12:16)
--- NOTE | 2025-02-24 12:30 | Hospitalist Progress Note ---
Date of Service February 24, 2025 Assessment & Plan (1) Chronic hypoxic respiratory failure: (2) COPD (chronic obstructive pulmonary disease): (3) Pulmonary fibrosis: (4) HTN (hypertension): Plan Mr. Watson is a 69 year old gentleman with history of former tobacco use, MARÍA, HLD, HTN, GERD, chronic interstitial lung disease, bilateral centrilobular emphysema, chronic hypoic respiratory failure 2/2 pulmonary fibrosis & bronchiectasis who is admitted for acute on chronic hypoxia iso COPD exacerbation IMPRESSION1. Slight progression diffuse innumerable large bilateral lung cysts most pronounced in the lung apices and areas of architectural distortion. Findings may reflect a combination of emphysema and interstitial lung disease. Vinny Vy José Miguel syndrome remains a differential consideration.2. Diffuse mosaic attenuation throughout the lungs consistent with airway trapping.3. Dilated pulmonary trunk measuring up to 3.6 centimeters.4. Ascending aortic ectasia measuring 3.[address] chest results will be discussed with patient at follow-up 6 minute walk test 02/03/2025 showed res ting and exertional hypoxia. Patient had 85% oxygen saturation on room air at rest, required 3 LPM oxygen at rest to maintain oxygen saturation above 90%. Patient required 6 LPM oxygen during ambulation to maintain oxygen saturation above 90%.New prescription for 3 LPM oxygen at rest and 6 LPM oxygen with activity with POC being ordered. Please notify patient regarding oxygen prescription being sent to DME and ensure processing. Notable WBC increase over night with left shift. Transition from levofloxacin to cefepime/flagyl for broader pseudomonal coverage at this time. CXR ordered which revealed progression. Spoke to ID over TT who suspects that the WBC is 2/2 to steroids. Pulm ordered multiple labs including aspergillosis, fungitel, crypto/ histopolasma, coccidoides etc. Patient unable to tolerate bronchoscopy or TU at this time While awaiting next steps will continue broad coverage until final decision made about GOC #Acute on chronic hypoxic respiratory failure #Combined pulmonary fibrosis and emphysema #Nocturnal hypoxia reports only requiring O2 on exertion, however, it appears as of today in EMR oxygen just increased to above CT imaging from December revealed progression of bilateral lungs cysts Continue 4 L oxygen with sleep Continue Anoro daily continue Pulmicort and Perforomist bid Xopenex and ipratropium q6r Recent 6MWT: 3L at rest, 6L on ambulation continue Mucinex o2 goal 88-90% sputum culture with normal ivis Agreed to Palliative consultation given progressive nature of disease and inc reasing o2 demands -no DNR/DNI continuing management until plan for possible hospice Cannot tolerate bronchoscopy---discussed case with Pulm: noninvasives are ordered, but hold on additional antimicrobials until they return prior to initiating not clearly directed treatments will trial x1 lasix 10mg to assess any benefit from resp status given appearances of some fluid on CXR #Bacteremia, GPC blood culture: Staph hominis and epidermis repeat blood culture: NGTD ID consulted continue Vancomycin IV day #3 per ID TTE ordered: Vegetation not seen but cannot be excluded, aortic valve sclerosis mild, focal thickening of the aortic valve, vegetation not seen but cannot be excluded, mild aortic root dilatation Cannot pursue TU 2/2 respiratory status #HTN continue lisinopril #Hyponatremia hold hctz, resolved at this time #AAA follows Vascular continue ASA dvt ppx lovenox PCP Minerva Admission and Anticipated Discharge Date Admission Date: February 18, 2025 Subjective still requiring 8L oxygen worsening cough, but notes some relief with homatropine syrup wanting to go home but understands his oxygen requirements are too high. Plan for meeting this evening Physical Exam Constitutional: WD/WN, vitals as above Respiratory: rhonchi bilaterally, diminished in periphery and bases Cardiovascular: RRR, no murmur, no edema Gastrointestinal (Abdomen): normal bowel sounds, soft, nontender, no hepatosplenomegaly Results & Data Results & Data Vital Signs (Past 12 Hours) Vital Signs Temp Pulse Pulse Resp BP Pulse Ox Pulse Ox 02/24/25 11:21 37.7 C H 96 H 18 115/69 94 02/24/25 09:09 02/24/25 07:42 37.1 C 97 H 18 105/69 88 L 02/24/25 07:17 93 H 02/24/25 07:16 92 H 18 90 02/24/25 07:00 90 02/24/25 02:57 36.9 C 88 16 103/62 90 O2 Del Method O2 Del Method O2 Flow Rate O2 Flow Rate 02/24/25 11:21 Nasal Cannula 8 02/24/25 09:09 Nasal Cannula 8 02/24/25 07:42 Nasal Cannula 8 02/24/25 07:17 02/24/25 07:16 Nasal Cannula 8 02/24/25 07:00 High Flow Nasal Cannula 8 02/24/25 02:57 Nasal Cannula 8 Laboratory Results Short CBC 02/24/25 Range/Units 04:22 WBC 20.87 H (4.8-10.8) K/ul Hgb 16.6 (14.0-18.0) g/dl Hct 49.7 (42.0-52.0) % Plt Count 269 (130-400) K/uL BMP 02/24/25 04:22 Sodium 137 Potassium 3.8 Chloride 107 Carbon Dioxide 23 BUN 21 Creatinine 0.82 Glucose 143 H Calcium 8.7 Medications Administered Home Medications Medication Instructions Recorded Confirmed Last Taken lisinopril 10 1 tab PO DAILY 01/26/23 02/18/25 Unknown mg-hydrochlorothiazide 12.5 mg tablet umeclidinium 62.5 mcg-vilanterol 1 inh inhalation DAILY 01/26/23 02/18/25 Unknown 25 mcg/actuation powdr for inhalation (Anoro Ellipta) aspirin 81 mg tablet,delayed 81 mg PO DAILY 02/18/25 02/18/25 Unknown release Active Medications Generic Name Dose Route Start Last Admin Trade Name Freq PRN Reason Stop Dose Admin Acetaminophen 650 mg 02/18/25 21:51 02/24/25 11:38 Acetaminophen 325 Mg Tab PO 03/20/25 21:50 650 mg QID PRN Administration pain/fever Albuterol 3 ml 02/20/25 13:00 02/24/25 07:15 Albut/Ipratrop 3mg/0.5mg Neb 3 Ml Vial NEB 03/22/25 12:59 Not Given Q6R [facility] Protocol Aspirin 81 mg 02/19/25 09:00 02/24/25 08:47 Aspirin 81 Mg Ectab PO 03/21/25 08:59 81 mg DAILY [facility] Administration Benzonatate 100 mg 02/21/25 09:00 02/24/25 13:08 Benzonatate 100 Mg Capsule PO 03/23/25 08:59 Not Given TID [facility] Budesonide 0.5 mg 02/21/25 07:00 02/24/25 07:15 Budesonide 0.5 Mg/2 Ml Vial (Pulmicort) NEB 03/23/25 06:59 0.5 mg BIDR [facility] Administration Enoxaparin Sodium 40 mg 02/19/25 09:00 02/24/25 08:43 Enoxaparin Inj 40 Mg/0.4 Ml Syr SQ 03/21/25 08:59 40 mg QAM [facility] Administration Formoterol Fumarate 20 mcg 02/21/25 07:00 02/24/25 07:15 Formoterol 20 Mcg/2 Ml Vial NEB 03/23/25 06:59 20 mcg BIDR [facility] Administration Guaifenesin 1,200 mg 02/20/25 21:00 02/24/25 08:45 Guaifenesin 600 Mg Tabcr PO 03/22/25 20:59 1,200 mg Q12 [facility] Administration Hydrocodone Bit/Homatropine Methylb 5 ml 02/23/25 14:13 02/23/25 19:03 Hydrocodone/Homatropine Syrup 5mg/1.5mg 5ml Udp PO 03/09/25 14:12 5 ml Q6H PRN Administration Cough Vancomycin HCl 1,500 mg/ 530 mls @ 200 mls/hr 02/22/25 20:00 02/24/25 11:43 Sodium Chloride IV 03/08/25 19:59 Infused Q12H [facility] Infusion Cefepime HCl 2,000 mg in 20 mls @ 5 mls/min 02/23/25 08:45 02/24/25 08:46 Maxipime 2000mg IV 02/25/25 08:44 5 mls/min Q8H [facility] Administration Protocol Lactobacillus Acidophilus 1,250 mg 02/20/25 09:00 02/24/25 08:47 Advanced Probiotic 625 Mg Capsule PO 03/22/25 08:59 1,250 mg DAILY [facility] Administration Levofloxacin 750 mg 02/20/25 12:30 02/22/25 10:14 Levofloxacin 750 Mg Tab PO 02/26/25 12:29 750 mg DAILY@1100 [facility] Administration Protocol Lisinopril 10 mg 02/19/25 09:00 02/22/25 10:14 Lisinopril 10 Mg Tab PO 03/21/25 08:59 10 mg QAM [facility] Administration Metronidazole 500 mg 02/23/25 09:00 02/24/25 08:48 Metronidazole 500 Mg Tab PO 02/28/25 08:59 500 mg Q8H [facility] Administration Protocol Sodium Chloride 4 ml 02/20/25 11:15 02/24/25 07:15 Sodium Chlor 7% 4 Ml Neb NEB 03/22/25 11:14 Not Given BIDR [facility]
--- NOTE | 2025-02-24 18:48 | Communication Note ---
Date of Service: February 24, 2025 Discussion with patient's son, daughter, and significant other at bedside. Discussed that there are multiple non-invasive fungal studies pending and that patient is on broad spectrum abx with vanc/cefepime/flagyl--given patient is not stable for bronchoscopy, these results may give insight into additional antimicrobial therapy. Patient and family stated they would like to wait for the results of those labs if able. They verbalized understanding this could take days to return. Patient verbalized understanding. Discussed that if respiratory status progresses various options for stabilization. Patient agreed to high flow and a trial of bipap if indicated. Plan to continue current management with anticipation pending fungitell/asperigill. IgE, cryptococcus, coccidioides will yield options Would attempt to reengage with Infectious Disease to consider alternative agents or evaluation.
[2025-02-25 08:00] LABS: Base Excess VBG 0.3 mEq/L; HCO3 VBG 24 mmol/L; Oxygen Saturation VBG 98.0 %; PCO2 VBG 34 mmHg (38-50); PO2 VBG 87 mmHg; pH VBG 7.45 (7.36-7.41)
[2025-02-25] MEDS: FUROSEMIDE INJ 20 MG/2 ML VIAL IV ONE (08:05)
[2025-02-25 08:07] LABS: Hematocrit (blood only) 46.8 % (42.0-52.0); Hemoglobin 15.8 g/dl (14.0-18.0); Mean Corpuscular Hemoglobin 33.1 pg (25.0-34.0); Mean Corpuscular Volume 97.9 fL (80.0-100.0); Platelet Count 310 K/uL (130-400); RDW Standard Deviation 51.8 fL (36.4-46.3); Red Blood Count 4.78 M/uL (4.70-6.10); White Blood Count 22.95 K/ul (4.8-10.8)
[2025-02-25] MEDS: HYDROCORTISONE SOD 50 MG in SYRINGE 0 ML IV SCH (08:12)
[2025-02-25 08:21] LABS: Anion Gap 7.0 (3-11); Blood Urea Nitrogen 16.0 mg/dl (6-23); Calcium 8.5 mg/dl (8.6-10.3); Carbon Dioxide 23.0 mmol/L (21-32); Chloride 108.0 mmol/L (98-107); Creatinine Clr Calc Pharmacy 94.8 ml/min; Glucose 136.0 mg/dl (70-99(Fasting)); Magnesium 2.3 mg/dl (1.7-2.4); Potassium 3.8 mmol/L (3.5-5.1); Sodium 138.0 mmol/L (136-145)
[2025-02-25] MEDS: CEFEPIME 2000MG 2,000 MG/20 ML SYR IV SCH (11:07)
--- NOTE | 2025-02-25 12:49 | Communication Note ---
Long discussion with and patient at bedside. [facility] discussed, transition to comfort focused care here today per patient wishes. Patient and understands this could mean he will pass away. Orders being placed now, note to follow. Date of Service: February 25, 2025
[2025-02-25] MEDS ORDERED: ONDANSETRON INJ 2 MG/ML 2 ML VIAL IV PRN (12:52)
--- NOTE | 2025-02-25 14:30 | Palliative Care Progress Note ---
Date of Service February 25, 2025 Assessment & Plan (1) Palliative care by specialist: Plan: Palliative care will continue to follow for ongoing EOL pt care and family support. (2) Counseling regarding goals of care: Plan: Today: 08:00 Dr Nuñez met with family overnight, plan to continue to optimize lung function and continue ABx therapy tailored to pending sputum cultures. Pt remains hopeful to improve enough to return home for hospice despite increased oxygen demand overnight. Pt requests time to rest, will plan to revisit GOC with pt/family when they arrive. Later in AM Dr Bautista had GOC discussion with pt and family, pt transitioned to [employer] PROJECT MANAGER. Goals of care clearly established for [employer] PROJECT MANAGER, so I did not readdress today. Palliative care will continue to follow for ongoing EOL pt care and family support. 02/24:Met with pt at bedside from 10:00 - 10:32, no visitors present. Reviewed/summarized previous ACP discussion held yesterday. Pt shared that he was unable to discuss plans with his family last evening. He shared that he has decided that he would like to go home and not return to the hospital again, and is hopeful that having the hospice team involved will relieve some of the burden of care giving from his S.O. Pt presented me with a [employer] PROJECT MANAGER POLST form that he completed over night and needed HCP signature. I reviewed this with him and signed it. Original placed in chart and copy sent to medical records. Pt shared plan to meet with his family (son, daughter, and significant other) this evening after 1730 (time unclear, whenever they all arrive) to discuss plan for hospice care. We discussed that his current oxygen demand may preclude him being able to go home with hospice. We discussed possible SNF placement or if he decompensates further possible need to remain in hospital for hospice care if his oxygen demand were to increase further. Pt states that he will continue to hope for discharge to home, but understands that may not be feasible given his advanced disease. Pt encouraged that we continue current course of care with hopes of optimizing pulmonary function to permit discharge to home. He shared that he has spoken with both of his children and let them know that his "lung disease is pretty bad", but would like to have a family meeting with HCP to answer their questions prior to transition to comfort directed care. He shared that he has decided for comfort directed care, but wants to give them the opportunity to discuss with the health care team and ask questions. (3) Need for comfort care: Plan: pt transitioned to W[employer] RES[employer] PROJECT MANAGER today, orders placed by attending team. Given fluctuating oxygen demand, pt may require hospitalization through end of life. CM working with family for SNF placement for ongoing hospice in event that he stabilizes allowing for discharge. Plan as above; discussed with attending Dr Bautista Admission and Anticipated Discharge Date Admission Date: February 18, 2025 Subjective Assessed pt at bedside this morning. He was drowsy but arousable. Pt shared that he did not sleep most of night, and wants to sleep. currently on HFNC, with persistent dyspnea with any exertion. No family present. Review of Systems Review of Systems: All systems reviewed & are unremarkable except as noted in HPI & below Respiratory: + cough, + dyspnea on exertion and + whe ezing Physical Exam Constitutional: + ill appearing (Chronically ill in appe arance without acute distress) Eyes: PERRL, conjunctivae normal, anicteric sclerae Neck: trachea midline Respiratory: + labored breathing, + cough, able to sp eak in complete sentences and + audible wheezes Auscultation: + diminished lung sounds (Mildly diminished breath sounds bilaterally at the base); no crackles and no rales Cardiovascular: Rate/Rhythm: regular rate Heart Sounds: normal S1 and normal S2; no murmur Extremities: no edema Gastrointestinal (Abdomen): normal bowel sounds, soft, nontender, no hepatosplenomegaly Neurologic: PERRL, EOMI, accommodation nl, no face palsy, no dysarthria Results & Data Vital Signs (Past 12 Hours) Vital Signs Temp Pulse Pulse Resp BP BP Pulse Ox 02/25/25 08:10 37.2 C 88 24 107/69 93 02/25/25 07:42 88 20 96 02/25/25 07:40 89 02/25/25 06:58 85 18 92 02/25/25 06:34 36.8 C 02/25/25 04:15 38.3 C H 93 H 20 111/77 92 02/24/25 23:44 37.2 C 95 H 20 120/80 96 02/24/25 22:01 88 O2 Del Method O2 Flow Rate FiO2 02/25/25 08:10 Oxymask 15 02/25/25 07:42 High Flow Nasal Cannula 40 60 02/25/25 07:40 02/25/25 06:58 Nasal Cannula 10 02/25/25 06:34 02/25/25 04:15 Nasal Cannula 10 02/24/25 23:44 Nasal Cannula 10 02/24/25 22:01 Laboratory Results No further labs or diagnostics in concert with comfort directed care. Diagnostic Findings No further labs or diagnostics in concert with comfort directed care. Medications Administered Current Inpatient Medications Acetaminophen (Acetaminophen 325 Mg Tab) 650 mg PO QID PRN PRN Reason: pain/fever Stop: 03/20/25 21:50 Last Admin: 02/25/25 04:56 Dose: 650 mg Cefdinir (Cefdinir 300 Mg Cap) 300 mg PO BID [facility]; Protocol Stop: 03/02/25 20:59 Guaifenesin (Guaifenesin 600 Mg Tabcr) 1,200 mg PO Q12 COLLIN Stop: 03/22/25 20:59 Last Admin: 02/25/25 08:10 Dose: 1,200 mg Hydrocodone Bit/Homatropine Methylb (Hydrocodone/Homatropine Syrup 5mg/1.5mg 5ml Udp) 5 ml PO Q6H PRN PRN Reason: Cough Stop: 03/09/25 14:12 Last Admin: 02/25/25 00:27 Dose: 5 ml Levalbuterol HCl (Levalbuterol 1.25 Mg/3 Ml Neb) 1.25 mg NEB Q6R PRN PRN Reason: Wheezing Stop: 03/21/25 00:59 Levofloxacin (Levofloxacin 750 Mg Tab) 750 mg PO DAILY@1100 [facility]; Protocol Stop: 03/03/25 10:59 Lorazepam (Lorazepam 2 Mg/1 Ml Vial) 0.5 mg IV Q4H PRN PRN Reason: Anxiety/Agitation Stop: 03/27/25 12:51 Ondansetron HCl (Ondansetron Inj 2 Mg/Ml 2 Ml Vial) 4 mg IV Q4H PRN PRN Reason: Nausea &/or Vomiting Stop: 03/27/25 12:51 Oxycodone HCl (Oxycodone Hcl Ir 5 Mg Tab (Immediate Release)) 5 mg PO Q4H PRN PRN Reason: Pain Stop: 03/04/25 21:52 PG Care Time/CCT Total # of Minutes Spent Total Time Spent with Patient: Total time spent is greater than 50% in coordination of care (as documented) at patient's floor/unit and/or counseling patient: Coding [place] [address] SUB INP/OBS CARE 2MIN Patient Type Established History Expanded Problem Focused Exam Expanded Problem Focused Medical Decision Making Moderate Complexity Diagnoses Palliative care by specialist Z51.5 Counseling regarding goals of care Z71.89 Need for comfort care
--- NOTE | 2025-02-25 17:17 | Advance Care Plan Prog Note ---
Advanced Care Planning Note Date of Discussion February 25, 2025 ACP Discussion Diagnoses requiring ACP discussion: severe HAP, Kendar Valdez, pulmonary fibrosis, acute on chronic hypoxic respiratory failure A [id number] discussion with the patient, partner regarding the patient's adva nced care planning took place during this hospitalization on the above date. The discussion included the explanation and discussion of advance directives and associated forms/documents, as well as the patient's current code status. We also discussed at length the patient's medical conditions (both acute and chronic), general prognosis, treatment options, and goals of care. The following summarizes the discussion: Began meeting by introducing myself to patient and and my role on the care team. Patient and are very aware of his critically ill condition, requiring escalation to high flow this morning, starting stress dose steroids. Per and patient, he has been declining progressively through the past year. Has worsened over the past few months. Now ECOG of 4, very poor quality of life per patient and family. Patient states acceptable quality of life is being able to do some activities of daily living and doing things at home. Unfortunately, given his progression this quality of life is highly unlikely to occur. Discussed comfort care and hospice at length. 2 options given to patient and . One option was to continue current level of care, attempt to get stronger at rehab, with understanding he will likely continue to decline and spend the rest of his life in rehab facilities or the hospital. Other option is to focus on comfort now, switch focus of care to comfo rt now vs. comfort care upon discharge. Patient states he wants to focus on comfort now, and try to get outside of the hospital before he dies. He doesnt want IV medications, IV blood draws. Patient now comfort care. DPOA-HC/Surrogate Decision Maker -patient would like partner to make decisions on his behalf if unable to make decisions for self Status Resuscitation Status DNR/DNI No Resuscitation Total Time I spent a total of 30 minutes was spent on this discussion, including counseling, answering questions, and completing, if any, pertinent advanced care planning forms/documents.
--- NOTE | 2025-02-25 17:28 | Hospitalist Progress Note ---
Date of Service February 25, 2025 Assessment & Plan (1) Chronic hypoxic respiratory failure: (2) COPD (chronic obstructive pulmonary disease): (3) Pulmonary fibrosis: (4) HTN (hypertension): Plan Mr. Watson is a 69 year old gentleman with history of former tobacco use, MARÍA, HLD, HTN, GERD, chronic interstitial lung disease, bilateral centrilobular emphysema, chronic hypoic respiratory failure 2/2 pulmonary fibrosis & bronchiectasis who is admitted for acute on chronic hypoxia iso COPD exacerbation IMPRESSION1. Slight progression diffuse innumerable large bilateral lung cysts most pronounced in the lung apices and areas of architectural distortion. Findings may reflect a combination of emphysema and interstitial lung disease. Vinny Vy José Miguel syndrome remains a differential consideration.2. Diffuse mosaic attenuation throughout the lungs consistent with airway trapping.3. Dilated pulmonary trunk measuring up to 3.6 centimeters.4. Ascending aortic ectasia measuring 3.[address] chest results will be discussed with patient at follow-up 6 minute walk test 02/03/2025 showed res ting and exertional hypoxia. Patient had 85% oxygen saturation on room air at rest, required 3 LPM oxygen at rest to maintain oxygen saturation above 90%. Patient required 6 LPM oxygen during ambulation to maintain oxygen saturation above 90%.New prescription for 3 LPM oxygen at rest and 6 LPM oxygen with activity with POC being ordered. Please notify patient regarding oxygen prescription being sent to DME and ensure processing. #Acute on chronic hypoxic respiratory failure #Combined pulmonary fibrosis and emphysema #Nocturnal hypoxia #Comfort Care -patient has end stage disease evidenced by ongoing hypoxia, poor functional status -discussed GOC with patient, would like to be comfort care at this time, discussed extensively with patient -patient does not want IVs, invasive monitoring, blood draws, etc. -prognosis on scale of days to weeks at this time Plan: -comfort care orders placed -stop IV abx, start levaquin, cefdinir for 5 more days (appropriate even on hospice given potential symptom relief) -stop high flow, transition to [place] -oxycodone, dilaudid for pain/air hunger -ativan for agitation -hold on glycopyrulate, order if needed for secretions -zofran for nausea/vomiting -miralax for bowel regiment -discussed with patient/, hospice referral placed for going to [facility] or [facility], patient wants Cassandra to make decisions on his behalf for choosing hospice agency and personal fdc, told to this provider #Bacteremia, GPC -comfort care #HTN -comfort care #Hyponatremia -comfort care #AAA -follows Vascular -continue ASA I spent a total of 50 minutes in direct patient care, including [id number] time with the patient and/or family, reviewing medical records, ordering and reviewing diagnostic tests, and coordinating care with other healthcare providers. This time includes: history taking, physical examination, medical decision making, counseling, ECG interpretation, imaging interpretation, lab interpretation, orders, and education, excluding time spent in the performance of separately billed services. I spent a total of 30 minutes providing advanced care planning to the patient and/or family, including [id number] time discussing the patient's health status, prognosis, and treatment options. This time includes specific activities such as: discussing advance directives, goals of care, prognostication, and end-of-life planning. Admission and Anticipated Discharge Date Admission Date: February 18, 2025 Subjective Patient seen and examined at bedside. Partner present as well, see note in chart, goals of care discussed at length patient would like to focus on comfort at this time. No pain currently, some brain fog and SOB. Review of Systems Review of Systems: -negative unless listed above Physical Exam Physical Exam: Gen: A&O 3 NAD HEENT: NCAT, EOMI, not icteric. External ears normal. No rhinorrhea. Moist mucous membranes. Neck: Supple, full range of motion, no observable masses, No meningeal sign. Lungs: diffuse rhonchi through lung warren. CV: RRR, no edema. Abdomen: Soft, nondistended, No rebound tenderness. MSK: No joint swelling, no redness. Skin: No rashes, petechiae, lesions. Normal color per patient. Neuro: Normal Gait, Grossly intact. Psych: Appropriate for situation. Results & Data Results & Data Vital Signs (Past 12 Hours) Vital Signs Temp Pulse Pulse Resp BP Pulse Ox O2 Del Method 02/25/25 15:33 36.6 C 104 H 20 124/79 92 Oxymask 02/25/25 13:10 92 H 20 Nasal Cannula 02/25/25 11:30 36.7 C 86 20 108/71 90 BiPAP 02/25/25 10:55 86 18 94 High Flow Nasal Cannula 02/25/25 09:31 High Flow Nasal Cannula 02/25/25 08:10 37.2 C 88 24 107/69 93 Oxymask 02/25/25 07:42 88 20 96 High Flow Nasal Cannula 02/25/25 07:40 89 02/25/25 06:58 85 18 92 Nasal Cannula 02/25/25 06:34 36.8 C O2 Flow Rate FiO2 02/25/25 15:33 15 02/25/25 13:10 8 02/25/25 11:30 02/25/25 10:55 40 60 02/25/25 09:31 10 02/25/25 08:10 15 02/25/25 07:42 40 60 02/25/25 07:40 02/25/25 06:58 10 02/25/25 06:34 Laboratory Results -personally reviewed, WBC of 23 consistent with ongoing infection Medications Administered Acetaminophen (Acetaminophen 325 Mg Tab) 650 mg PO QID PRN PRN Reason: pain/fever Stop: 03/20/25 21:50 Last Admin: 02/25/25 04:56 Dose: 650 mg Documented By: Admin: 02/24/25 16:55 Dose: 650 mg Documented By: Admin: 02/24/25 11:38 Dose: 650 mg Documented By: Admin: 02/23/25 22:21 Dose: 650 mg Documented By: RUSTY Guaifenesin (Guaifenesin 600 Mg Tabcr) 1,200 mg PO Q12 COLLIN Stop: 03/22/25 20:59 Last Admin: 02/25/25 08:10 Dose: 1,200 mg Documented By: Admin: 02/24/25 21:26 Dose: 1,200 mg Documented By: Admin: 02/24/25 08:45 Dose: 1,200 mg Documented By: Admin: 02/23/25 20:31 Dose: 1,200 mg Documented By: Admin: 02/23/25 08:19 Dose: 1,200 mg Documented By: Admin: 02/22/25 20:36 Dose: 1,200 mg Documented By: Admin: 02/22/25 10:14 Dose: 1,200 mg Documented By: leticia Admin: 02/21/25 21:49 Dose: 1,200 mg Documented By: Admin: 02/21/25 08:10 Dose: 1,200 mg Documented By: Admin: 02/20/25 21:42 Dose: 1,200 mg Documented By: RUSTY Hydrocodone Bit/Homatropine Methylb (Hydrocodone/Homatropine Syrup 5mg/1.5mg 5ml Udp) 5 ml PO Q6H PRN PRN Reason: Cough Stop: 03/09/25 14:12 Last Admin: 02/25/25 00:27 Dose: 5 ml Documented By: Admin: 02/23/25 19:03 Dose: 5 ml Documented By: RUSTY
[2025-02-25] MEDS ORDERED: HYDROmorphone INJ 0.5 MG/0.5 ML SYR IV PRN (17:39)
[2025-02-25] MEDS: CEFDINIR 300 MG CAP PO SCH (21:24)
[2025-02-26 00:33] LABS: Fungitell (1-3)-B-D-Glucan <31 pg/mL (<60); Source Serum
[2025-02-26] MEDS: POLYETHYLENE (MIRALAX) 17 GM PACK PO SCH (08:39)
--- NOTE | 2025-02-26 14:19 | Hospitalist Progress Note ---
Date of Service February 26, 2025 Assessment & Plan (1) Chronic hypoxic respiratory failure: (2) COPD (chronic obstructive pulmonary disease): (3) Pulmonary fibrosis: (4) HTN (hypertension): Plan Mr. Watson is a 69 year old gentleman with history of former tobacco use, MARÍA, HLD, HTN, GERD, chronic interstitial lung disease, bilateral centrilobular emphysema, chronic hypoic respiratory failure 2/2 pulmonary fibrosis & bronchiectasis who is admitted for acute on chronic hypoxia iso COPD exacerbation IMPRESSION1. Slight progression diffuse innumerable large bilateral lung cysts most pronounced in the lung apices and areas of architectural distortion. Findings may reflect a combination of emphysema and interstitial lung disease. Vinny Vy José Miguel syndrome remains a differential consideration.2. Diffuse mosaic attenuation throughout the lungs consistent with airway trapping.3. Dilated pulmonary trunk measuring up to 3.6 centimeters.4. Ascending aortic ectasia measuring 3.[address] chest results will be discussed with patient at follow-up 6 minute walk test 02/03/2025 showed res ting and exertional hypoxia. Patient had 85% oxygen saturation on room air at rest, required 3 LPM oxygen at rest to maintain oxygen saturation above 90%. Patient required 6 LPM oxygen during ambulation to maintain oxygen saturation above 90%.New prescription for 3 LPM oxygen at rest and 6 LPM oxygen with activity with POC being ordered. Please notify patient regarding oxygen prescription being sent to DME and ensure processing. #Acute on chronic hypoxic respiratory failure #Combined pulmonary fibrosis and emphysema #Nocturnal hypoxia #Comfort Care -patient has end stage disease evidenced by ongoing hypoxia, poor functional status -discussed GOC with patient, would like to be comfort care at this time, discussed extensively with patient -patient does not want IVs, invasive monitoring, blood draws, etc. -prognosis on scale of days to weeks at this time Plan: -comfort care orders placed -stop IV abx, start levaquin, cefdinir for 5 more days (appropriate even on hospice given potential symptom relief) -stop high flow, transition to [place] -oxycodone, dilaudid for pain/air hunger -ativan for agitation -hold on glycopyrulate, order if needed for secretions -zofran for nausea/vomiting -miralax for bowel regiment -discussed with patient/, hospice referral placed for going to [facility] or [facility], patient wants Cassandra to make decisions on his behalf for choosing hospice agency and personal fdc, told to this provider 02/26 remains on nasal cannula Positive bilateral lower extremity edema, Positive fluid balance,Lasix 20 mg IV given #Bacteremia, GPC -comfort care #HTN -comfort care #Hyponatremia -comfort care #AAA -follows Vascular -continue ASA disposition Anticipate discharge tomorrow to personal-fdc with hospice services Admission and Anticipated Discharge Date Admission Date: February 18, 2025 Subjective Seen sitting up in bed, on Nasal cannula Comfortable, not in distress States he feels okay overall, just tired States breathing is okay Denies pain No other symptoms Review of Systems Review of Systems: all noted and negative except for above Physical Exam Physical Exam: General- oriented x 3, not in distress, speaks in sentences with no effort or accessory muscle use Eyes- anicteric Neck- no JVD Lungs- faint rales at the bases, no wheezing, good air entry bilaterally Heart- normal rate, regular rhythm; no murmurs Abdomen- normal bowel sounds, nondistended, soft, nontender Extremities- grade 1 lower extremity edema, no warmth/tenderness Neuro- alert, oriented x 3; no gross focal neurologic deficits Skin- warm & dry Results & Data Results & Data Vital Signs (Past 12 Hours) Vital Signs Temp Pulse Resp BP Pulse Ox O2 Del Method O2 Flow Rate 02/26/25 09:00 High Flow Nasal Cannula 02/26/25 08:13 37.5 C 92 H 16 111/74 94 High Flow Nasal Cannula 15 all noted and reviewed including below
[2025-02-26] MEDS: FUROSEMIDE INJ 20 MG/2 ML VIAL IV ONE (14:42)
[2025-02-27] MEDS ORDERED: VANCOMYCIN LEVEL ONE (07:30)
[2025-02-27 07:56] VITALS: PULSE 102; RESP 20; TEMP 97.4; O2SAT 90
--- NOTE | 2025-02-27 09:08 | Discharge Summary ---
Discharge Summary Date of Service February 27, 2025 Principal Dx & Hospital Course #1 = Principal Diagnosis (1) Chronic hypoxic respiratory failure: (2) COPD (chronic obstructive pulmonary disease): (3) Pulmonary fibrosis: (4) HTN (hypertension): Plan Mr. Watson is a 69 year old gentleman with history of former tobacco use, MARÍA, HLD, HTN, GERD, chronic interstitial lung disease, bilateral centrilobular emphysema, chronic hypoic respiratory failure 2/2 pulmonary fibrosis & bronchiectasis who is admitted for acute on chronic hypoxia iso COPD exacerbation IMPRESSION1. Slight progression diffuse innumerable large bilateral lung cysts most pronounced in the lung apices and areas of architectural distortion. Findings may reflect a combination of emphysema and interstitial lung disease. [place] Vy [place] Miguel syndrome remains a differential consideration.2. Diffuse mosaic attenuation throughout the lungs consistent with airway trapping.3. Dilated pulmonary trunk measuring up to 3.6 centimeters.4. Ascending aortic ectasia measuring 3.[address] chest results will be discussed with patient at follow-up 6 minute walk test 02/03/2025 showed res ting and exertional hypoxia. Patient had 85% oxygen saturation on room air at rest, required 3 LPM oxygen at rest to maintain oxygen saturation above 90%. Patient required 6 LPM oxygen during ambulation to maintain oxygen saturation above 90%.New prescription for 3 LPM oxygen at rest and 6 LPM oxygen with activity with POC being ordered. Please notify patient regarding oxygen prescription being sent to DME and ensure processing. #Acute on chronic hypoxic respiratory failure #Combined pulmonary fibrosis and emphysema #Nocturnal hypoxia #Comfort Care -patient has end stage disease evidenced by ongoing hypoxia, poor functional status -discussed GOC with patient, would like to be comfort care at this time, discussed extensively with patient -patient does not want IVs, invasive monitoring, blood draws, etc. -prognosis on scale of days to weeks at this time Plan: -comfort care orders placed -stop IV abx, start levaquin, cefdinir for 5 more days (appropriate even on hospice given potential symptom relief) -stop high flow, transition to NC -oxycodone, dilaudid for pain/air hunger -ativan for agitation -hold on glycopyrulate, order if needed for secretions -zofran for nausea/vomiting -miralax for bowel regiment -discussed with patient/, hospice referral placed for going to [facility] or [facility], patient wants Cassandra to make decisions on his behalf for choosing hospice agency and personal fpc, told to this provider 02/27 remains on nasal cannula complete course of Levaquin and Cefdinir continue comfort measures Hospice Care Service to commence at SNF upon discharge #Bacteremia, GPC -comfort care #HTN -comfort care #Hyponatremia -comfort care #AAA -follows Vascular -continue ASA Disposition Discharge to SNF with Hospice Care Notes For Next Care Provider Medication Changes From Visit per medical reconciliation Admission HPI Per Admitting Provider Patient is 69-year-old male with PMH chronic interstitial lung disease with bilateral centrilobular emphysema, pulmonary fibrosis, bronchiectasis, chronic respiratory failure with hypoxia, on oxygen, HTN, HLD, pulmonary hypertension, MARÍA, GERD presented to ER with c/o SOB. Patient reports worsening SOB over past couple of weeks and general malaise. He reports uses 4L O2 HS and has portable oxygen concentrator uses with exertion set at 2L. He states recently has been needing to use portal concentrator continuous throughout the day however past several days still feeling SOB and having hypoxia so he has been using home oxygen concentrator during the day also. Takes O2 off to ambulate to bathroom and feels very SOB. He states has nonproductive cough, that sometimes has slight clear sputum production. This week feeling chilled. Hasn't recorded a fever. He states intermittent night sweats recently. States also has decreased appetite and decreased oral intake. Reports gradual weight loss over past several years since his pulmonary diagnosis. Denies V/D/C, MEEHAN, dizziness, syncope, vision changes, neck pain, CP, palpitations, hemoptysis, sore throat, otalgia, rhinorrhea, abdominal pain, paresthesias, weakness, extremity weakness, extremity edema, rashes, urinary symptoms. Per outpatient chart review seen at PCPs office on 12/22/2024 for persistent nonproductive cough and hypoxia. He was treated with Levaquin 500 mg daily x 10 days, and prednisone 10-day taper 12/22/2024 CXR: Reticular/hazy opacities, predominantly in the mid to lower lungs, compatible with chronic interstitial lung disease. No pleural effusion or pneumothorax. Stable cardiomediastinal silhouette. 02/03/2025 CT chest without contrast: Impression: 1. Slight progression diffuse innumerable large bilateral lung cysts most pronounced in the lung apices and areas of architectural distortion. Findings may reflect a combination of emphysema and interstitial lung disease. [place] Vy José Miguel syndrome remains a differential consideration 2. Diffuse mosaic attenuation throughout the lungs consistent with airway trapping 3. dilated pulmonary tract measuring up to 3.6 cm 4. Ascending aortic astasia measuring 3.9 cm Admission Exam Per Admitting Provider General: no distress sitting upright in bed on oxymask 6L, chronic ill appearing Head: normocephalic, atraumatic Eyes: conjunctiva non-injected, anicteric ENT: normal inspection external ears, nose, mucous membranes moist Neck: supple, trachea midline, non-tender Lungs: no distress sitting upright in bed on oxymask 6L with O2 sat91%, +diminished breath sounds CV: RRR, no murmur, trace pretibial edema Abd: normal BS, soft, non-tender Ext: no cyanosis, no calf tenderness Neuro: A&O x 3, no focal deficits noted, normal affect Skin: warm, dry Discharge Exam General- oriented x 3, not in distress, speaks in sentences with no effort or accessory muscle use appears weak Eyes- anicteric Neck- no JVD Lungs- clear breath sounds bilaterally, no rales/wheezes Heart- normal rate, regular rhythm; no murmurs Abdomen- normal bowel sounds, nondistended, soft, no tenderness Extremities- no pretibial edema, no calf tenderness Neuro- alert, oriented x 3; no gross focal neurologic deficits Skin- warm & dry Updated Medication List Medication Instructions Recorded Confirmed Type cefdinir 300 mg capsule 300 mg PO BID 3 days #6 caps 02/26/25 Rx levofloxacin 750 mg tablet 750 mg PO DAILY@1100 3 days #3 tabs 02/26/25 Rx morphine concentrate 100 mg/5 mL 5 mg (0.25 mL) PO Q4H PRN pain, 02/26/25 Rx (20 mg/mL) oral solution shortness of breath #15 mL umeclidinium 62.5 mcg-vilanterol 1 inh inhalation DAILY #1 ea 02/26/25 Rx 25 mcg/actuation powdr for inhalation (Anoro Ellipta) Hospital Stay Data Consultations 02/18/25 20:58 ED Decision to Admit Stat 02/20/25 09:43 Consult Pulmonology Routine 02/20/25 09:45 Consult Infectious Diseases Routine 02/22/25 16:46 Consult Palliative Care Routine 02/23/25 08:24 Consult Cardiology Routine Diagnostic Imagining Performed Laboratory Results WBC 22.95 K/ul (4.8-10.8) H 02/25/25 07:46 RBC 4.78 M/uL (4.70-6.10) 02/25/25 07:46 Hgb 15.8 g/dl (14.0-18.0) 02/25/25 07:46 Hct 46.8 % (42.0-52.0) 02/25/25 07:46 MCV 97.9 fL (80.0-100.0) 02/25/25 07:46 MCH 33.1 pg (25.0-34.0) 02/25/25 07:46 MCHC 33.8 g/dL (32.0-36.0) 02/25/25 07:46 RDW Std Deviation 51.8 fL (36.4-46.3) H 02/25/25 07:46 RDW Coeff of Nyasia 14.3 % (11.5-14.5) 02/25/25 07:46 Plt Count 310 K/uL (130-400) 02/25/25 07:46 MPV 9.9 fL (9.4-12.4) 02/25/25 07:46 Immature Gran % (Auto) 2.6 % 02/23/25 06:24 Neut % (Auto) 81.9 % 02/23/25 06:24 Lymph % (Auto) 6.3 % 02/23/25 06:24 Perkins % (Auto) 8.0 % 02/23/25 06:24 Eos % (Auto) 0.7 % 02/23/25 06:24 Baso % (Auto) 0.5 % 02/23/25 06:24 Neut # (Auto) 19.40 K/uL (1.40-6.50) H 02/23/25 06:24 Lymph # (Auto) 1.49 K/uL (1.20-3.40) 02/23/25 06:24 Perkins # (Auto) 1.90 K/uL (0.11-0.59) H 02/23/25 06:24 Eos # (Auto) 0.16 K/uL (0.00-0.50) 02/23/25 06:24 Baso # (Auto) 0.11 K/uL (0.00-0.20) 02/23/25 06:24 Immature Gran # (Auto) 0.61 K/uL (0.01-0.20) H 02/23/25 06:24 PT 13.0 Seconds (9.0-12.0) H 02/18/25 20:07 INR 1.2 (0.9-1.1) H 02/18/25 20:07 APTT 28 Seconds (21-31) 02/18/25 20:07 PTT Ratio 1.0 02/18/25 20:07 VBG pH 7.45 (7.36-7.41) H 02/25/25 07:50 VBG pCO2 34 mmHg (38-50) L 02/25/25 07:50 VBG pO2 87 mmHg 02/25/25 07:50 VBG HCO3 24 mmol/L 02/25/25 07:50 VBG O2 Saturation 98.0 % 02/25/25 07:50 VBG Base Excess 0.3 mEq/L 02/25/25 07:50 Sodium 138 mmol/L (136-145) 02/25/25 07:46 Potassium 3.8 mmol/L (3.5-5.1) 02/25/25 07:46 Chloride 108 mmol/L (98-107) H 02/25/25 07:46 Carbon Dioxide 23 mmol/L (21-32) 02/25/25 07:46 Anion Gap 7 (3-11) 02/25/25 07:46 BUN 16 mg/dl (6-23) 02/25/25 07:46 Creatinine 0.79 mg/dl (0.6-1.4) 02/25/25 07:46 Est Cr Clr Drug Dosing 94.8 ml/min 02/25/25 07:46 eGFR 94.98 02/25/25 07:46 BUN/Creatinine Ratio 20.3 (10-20) H 02/25/25 07:46 Glucose 136 mg/dl (70-99(Fasting)) H 02/25/25 07:46 Lactate 1.5 mmol/L (0.4-2.0) 02/18/25 20:38 Calcium 8.5 mg/dl (8.6-10.3) L 02/25/25 07:46 Phosphorus 2.7 mg/dl (2.5-4.9) 02/25/25 07:46 Magnesium 2.3 mg/dl (1.7-2.4) 02/25/25 07:46 Total Bilirubin 1.2 mg/dl (0.2-1.0) H D 02/22/25 05:29 AST 23 U/L (13-39) 02/22/25 05:29 ALT 12 U/L (7-52) 02/22/25 05:29 Alkaline Phosphatase 64 U/L (34-104) 02/22/25 05:29 Troponin I High Sens 9.6 pg/ml (0-20) 02/18/25 20:07 B-Natriuretic Peptide 41 pg/ml (0-100) 02/18/25 20:07 Total Protein 6.6 gm/dl (6.0-8.3) 02/22/25 05:29 Albumin 3.2 gm/dl (3.4-5.0) L 02/22/25 05:29 Globulin 3.4 gm/dl (2.5-4.0) 02/22/25 05:29 Albumin/Globulin Ratio 0.9 (0.9-2) 02/22/25 05:29 TSH 1.007 uIu/ml (0.300-4.500) 02/18/25 20:07 A.fumigatus Allerg IgE <0.10 kU/L 02/23/25 09:18 A. fumigatus ASM Class 0 02/23/25 09:18 Allergen Test Interp See Below 02/23/25 09:18 Nasal Screen MRSA (PCR) Negative (Negative) 02/18/25 22:30 Random Vancomycin 3.3 mcg/ml (10-20) L 02/27/25 04:44 Adenovirus (PCR) Not Detected (NotDetected) 02/18/25 20:08 B. pertussis DNA (PCR) Not Detected (NotDetected) 02/18/25 20:08 B.parapertussis DNA PCR Not Detected (NotDetected) 02/18/25 20:08 C. pneumoniae DNA (PCR) Not Detected (NotDetected) 02/18/25 20:08 Coronavirus OC43 (PCR) Not Detected (NotDetected) 02/18/25 20:08 Coronavirus HKU1 (PCR) Not Detected (NotDetected) 02/18/25 20:08 Coronavirus 229E (PCR) Not Detected (NotDetected) 02/18/25 20:08 SARS-CoV-2 (PCR) Not Detected (NotDetected) 02/18/25 20:08 Coronavirus NL63 (PCR) Not Detected (NotDetected) 02/18/25 20:08 Cryptococcus Source Serum 02/23/25 09:18 Cryptococcal Ag (Latex) Not Detected (Not Detected) 02/23/25 09:18 U Histopl Galactoman Ag <0.2 ng/mL 02/23/25 11:27 Human Metapneumovir PCR Not Detected (NotDetected) 02/18/25 20:08 Influenza Type A (PCR) Not Detected (NotDetected) 02/18/25 20:08 Influenza Type B (PCR) Not Detected (NotDetected) 02/18/25 20:08 M. pneumoniae (PCR) Not Detected (NotDetected) 02/18/25 20:08 Parainfluenza 1 (PCR) Not Detected (NotDetected) 02/18/25 20:08 Parainfluenza 2 (PCR) Not Detected (NotDetected) 02/18/25 20:08 Parainfluenza 3 (PCR) Not Detected (NotDetected) 02/18/25 20:08 Parainfluenza 4 (PCR) Not Detected (NotDetected) 02/18/25 20:08 RSV (PCR) Not Detected (NotDetected) 02/18/25 20:08 Entero/Rhino (PCR) Not Detected (NotDetected) 02/18/25 20:08 Staphylococcus sp PCR DETECTED (NotDetected) A 02/18/25 20:38 Bld Cult ID Panel PCR See PCR Comment (NotDetected) 02/18/25 20:38 Beta-(1,3)-D-Glucan <31 pg/mL (<60) 02/23/25 09:18 B-(1,3)-D-Glucan Intrp Negative 02/23/25 09:18 Impressions Chest CTA 02/18/25 21:51 Exam(s): CTA CHEST IV Amt: 116ml EXAM: CT Chest With Intravenous Contrast CLINICAL HISTORY: sob. TECHNIQUE: Axial computed tomographic images of the chest with intravenous contrast. CTDI is 27.25 mGy and DLP is 936.47 mGy-cm. Automated exposure control was utilized for the study. A dose lowering technique was utilized adhering to the principles of ALARA. COMPARISON: No relevant prior studies available. FINDINGS: Limitations: There is diffuse respiratory artifact, which degrades image quality throughout the examination. Pulmonary arteries: Accounting for limitations with diffuse extensive respiratory artifact, there is no large/central saddle pulmonary embolism. Most very distal subsegmental pulmonary artery segments are of very limited to nondiagnostic quality. Aorta: No acute findings. No thoracic aortic aneurysm. Lungs: Advanced emphysema with architectural loss and extensive distortion with diffuse bullous disease, similar in morphologic appearance to the previous examination. However, there is abnormal fluid along the posteromedial aspect of the previously noted large conglomerate bulla in the right upper lobe, new from the previous examination. Increased attenuation of the lower lobes with similar honeycombing. Suspect basilar atelectasis. Pleural space: Unremarkable. No significant effusion. No pneumothorax. Heart: The cardiac chambers are prominent. There is asymmetric dilation of the right atrium and ventricle with mild reflux of contrast into the intrahepatic IVC. Prominent coronary artery calcification. Bones/joints: No acute fracture. No dislocation. Soft tissues: Unremarkable. Lymph nodes: Diffuse paratracheal and precarinal lymph nodes, predominantly subcentimeter in size. However, there is a prominent lymph node anterior to the right proximal mainstem bronchus measuring 14 mm. IMPRESSION: 1. Accounting for limitations with diffuse extensive respiratory artifact, there is no large/central saddle pulmonary embolism. Most very distal subsegmental pulmonary artery segments are of very limited to nondiagnostic quality. No 3D or MIP imaging provided. 2. Advanced emphysema with architectural loss and extensive distortion with diffuse bullous disease, similar in morphologic appearance to the previous examination. However, there is abnormal fluid along the posteromedial aspect of the previously noted large conglomerate bulla in the right upper lobe, new from the previous examination. Favor acute infection within this region. 3. The cardiac chambers are prominent. There is asymmetric dilation of the right atrium and ventricle with mild reflux of contrast into the intrahepatic IVC. This is a nonspecific finding but suggests right heart strain. Electronically signed by: Rodrigo London MD 02/19/25 00:05 AM Chest X-Ray 02/23/25 08:18 XR chest 1V portable CLINICAL HISTORY: continued hypoxia COMPARISON STUDY: 02/20/2025 FINDINGS: Heart size and pulmonary vasculature are normal. Stable emphysema. There is increased patchy consolidation at the right lower lung and increased stranding at the left lung base. No pleural effusion or pneumothorax. IMPRESSION: Increased pneumonia in the lower lungs. ACT 112: Negative or not required by law. Electronically signed by: Prince Iqbal M.D. 02/23/2025 10:26 AM Pending Results Patient Have Any Pending Studies at Discharge: No Discharge Instructions Given to Patient (Per Discharging Provider) hospice care services to commence at [facility] facility Total Time Total Time Spent Total Time Spent (In Minutes): 25 minutes
[2025-02-27 11:16] VITALS: BP 111/77
--- NOTE | 2025-03-02 09:24 | Coding Query ---
CODING QUERY To promote full compliance with coding requirements relating to patient care, provider participation is requested in all cases of asbestos siding installer uncertainty. Please assist us with the question(s) below: Coding Question(s): Pt admitted with acute on chronic hypoxic respiratory failure in setting of emphysema/interstitial lung disease. Pulmonary consult and Pulmonary notes documented Pneumnia. Please check below the phrase that describes the Pneumonia. Thanks for your help! LUCINDA Torrez [facility] Physician's Response(s): x__ Pt had Pneumonia, Present on Admission Pt did NOT have Pneumonia Other: Please document: Principal Diagnosis: "that condition established after study, to be chiefly responsible for occasioning the admission of the patient to the hospital for care." Co-Existing Principal Diagnosis: "when two or more diagnoses equally meet the criteria for principal diagnosis as determined by the circumstances of admission, diagnostic work up, and/or therapy provided, and the Alphabetic Index, Tabular List, or another coding guideline does not provide sequencing direction, any one of the diagnoses may be sequenced first." "When the physician has documented what appears to be a current diagnosis in the body of the record, but has not included the diagnosis in the final diagnostic statement, the physician should be asked whether the diagnosis should be added." (Source [facility]oding [facility] 2 QTR90. p3-4) YVROSE
== END 2025-02-27 12:00 | disposition hospice, home (50) | DRG 193 ==
LOC: ED 19:48 → SUATTDRO 21:51 → EDINP 21:51 → 2N 02-19 00:30 → 2W 02-23 21:06